=== PATIENT | male | born 1955 | race Caucasian/White ===

== ENCOUNTER 2017-05-26 06:38 | Observation (INO) ==
[2017-05-26] MEDS ORDERED: Vancomycin 1,500 MG in D5% in Water 250 ML IVPB ONE (07:04)
[2017-05-26] MEDS ORDERED: CeFAZolin Pre 2,000 MG/100 ML 2,000 MG/100 ML BAG IVPB ONE (07:04)
[2017-05-26] MEDS ORDERED: Ringers Solution, Lactated 1,000 ML IVC SCH (07:15)
[2017-05-26] MEDS: Albuterol 2.5 MG/3 ML NEBULIZER IH ONE ×2 (07:16→14:37)
--- NOTE | 2017-05-26 07:34 | History & Physical Report ---
Date of Encounter: 05/26/17 Time of Encounter: 07:30 24 Hour HP Update - Instructions Instructions: If the History and Physical is less than 30 days old and was completed prior to A.M. admission and or procedure and has NOT been updated on calendar day of procedure please complete this update prior to performing procedure. - Update Patient reports changes in Medical Condition: No Changes in examination, assessment, or condition: No Changes in Medication: No Preop tests/diagnostics Reviewed: Yes Surgery Remains Indicated: Yes Consent for Planned Operative Procedure(s) Verified: Yes - Pre-Operative Checklist Preoperative Checklist Indicated: Yes Prophylactic Antibiotic Ordered: Yes (vancomycin due to mrsa risk) Home Medications Include Beta Dereje: No Beta Dereje Taken Today (Day of Surgery): No Beta Dereje Taken Yesterday (Day Prior to Surgery): No Is VTE Prophylaxis Indicated?: Yes
[2017-05-26] MEDS ORDERED: *HR* Midazolam HCl 2 MG/2 ML VIAL ONE (08:14)
[2017-05-26] MEDS ORDERED: *HR* Propofol 200 MG/20 ML VIAL IVP ONE (08:14)
[2017-05-26] MEDS ORDERED: *HR* FentaNYL (PF) 100 MCG/2 ML VIAL ONE (08:14)
[2017-05-26] MEDS ORDERED: *HR* Phenylephrine 10 MG/ML VIAL ONE (08:15)
[2017-05-26] MEDS ORDERED: Heparin 1,000 UNITS/500 mL NS 500 ML ONE (08:17)
[2017-05-26] MEDS ORDERED: *HR* Remifentanil 1 MG VIAL IVP ONE ×2 (08:20)
[2017-05-26] MEDS ORDERED: Lidocaine -MPF 2% 2 ML VIAL ONE (08:26)
--- NOTE | 2017-05-26 08:32 | Anesthesia Evaluation PreOp ---
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: CVA (multiple CVA; residual LUE and LLE weakness), Other (R ICA stent) Other Medical History: Renal (stage IV ckd) Anesthesia History: No Prior Anesthetic Complications Alcohol Use: none Drug use: none Medications and Allergies Clopidogrel [Plavix] 75 mg PO DAILY 07/28/15 [History] Lisinopril 20 mg PO DAILY 01/03/16 [History] Oxycodone HCl/Acetaminophen [Percocet 10-325 mg Tablet] 1 tab PO Q8H PRN [History] Albuterol Sulfate [Albuterol Inhaler] 2 puff IH Q4HR PRN 07/13/16 [History] Aspirin [Lo-Dose Aspirin EC] 81 mg PO DAILY 02/07/17 [History] Lovastatin [Lovastatin] 80 mg PO HS 02/07/17 [History] amLODIPine [Norvasc] 5 mg PO DAILY 02/07/17 [History] 3 Allergy/AdvReac Type Severity Reaction Status Date / Time Beta-Blockers AdvReac See Verified 05/26/17 07:19 (Beta-Adrenergic Bloc Comments - Meds/Allergy Pre-op Review Medications Reviewed: Yes Allergies Reviewed: Yes Beta Blockers on Current Med List: No Anesthesia Results - Labs Laboratory Tests 05/24/17 05/24/17 05/24/17 11:53 11:53 11:53 WBC 7.9 Hgb 13.8 Hct 44.6 Plt Count 216 PT 11.1 INR 1.0 APTT 29.5 Sodium 138 Potassium 4.7 H Chloride 107 Carbon Dioxide 24 BUN 36 H Creatinine 2.24 H Est GFR ( Amer) 36 L Est GFR (Non-Af Amer) 30 L BUN/Creatinine Ratio 16 - Imaging EKG: report reviewed, image reviewed (SINUS RHYTHM NONSPECIFIC T-WAVE ABNORMALITY) Additional studies: 2016 TTE: Indications: Cerebrovascular Accident Impressions: Normal LV systolic function, LVEF 60%. Atypical septal motion is noted. Mild concentric left ventricular hypertrophy. Mild left ventricular diastolic dysfunction. Normal right ventricular structure and function. Mildly dilated right atrium. No evidence of intracardiac shunting with agitated saline contrast (fair quality study). No significant valvular dysfunction. Unable to estimate RVSP due to lack of TR jet. Borderline dilated aortic root and proximal ascending aorta, measuring 4.0 cm in diameter. 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
[2017-05-26] MEDS ORDERED: Heparin 1,000 UNITS/500 mL NS 1,000 ML ONE (08:47)
[2017-05-26] MEDS ORDERED: Bupivacaine-MPF 0.25% 10 ML VIAL ONE (08:47)
[2017-05-26] MEDS ORDERED: Protamine Sulfate 50 MG/5 ML VIAL IVP ONE (08:47)
[2017-05-26] MEDS ORDERED: EPHEDrine 50 MG/ML VIAL ONE (10:21)
[2017-05-26] MEDS ORDERED: Ondansetron 4 MG/2 ML VIAL ONE (10:53)
[2017-05-26] MEDS ORDERED: Dexamethasone 4 MG/ML VIAL ONE (10:53)
[2017-05-26] MEDS ORDERED: *HR* Promethazine 25 MG/ML VIAL IVP PRN (11:02)
--- NOTE | 2017-05-26 11:41 | Anesthesia Procedures ---
Date of Encounter: 05/26/17 Time of Encounter: 08:45 Procedures: Anesthesia - Arterial Line Time out performed: Yes Sedation: Versed (mg): 2 Supplemental Oxygen via Nasal Cannula (L/min): 3 Local Anesthetic: Lidocaine 1% Amount of Anesthetic used (mls): 0.2 Size (Gauge): 20 Length (inches): 1 3/4 Technique Used: sterile prep, guide wire technique Post-Procedure: line taped into place, dry sterile dressing placed Patient tolerated procedure: well, no complications Complications: none Site: Radial L Vitals: see nurses notes
[2017-05-26] MEDS ORDERED: NiCARdipine 2.5 MG/10 ML Syringe IVPB ONE (12:37)
[2017-05-26] MEDS ORDERED: *HR* HYDROmorphone 2 MG/ML SYRINGE ONE (12:42)
[2017-05-26] MEDS: *HR* HYDROmorphone (PF) 1 MG/ML SYRINGE IVP PRN ×4 (13:39→14:11)
[2017-05-26] MEDS ORDERED: Albuterol 2.5 MG/3 ML NEBULIZER IH ONE (13:45)
[2017-05-26] MEDS ORDERED: Albuterol 2.5 MG/3 ML NEBULIZER ONE (13:46)
--- NOTE | 2017-05-26 14:05 | Operative Note ---
Date of procedure: 05/26/17 Pre-op diagnosis: 80-99% Left internal carotid artery stenosis Post-op diagnosis: same Procedure: 1. Left carotid endarterectomy with hemashield patch angioplasty. Complications: None Anesthesia: MOSHEA Surgeon: John Sharma Estimated blood loss (cc): 100 Specimen: Left carotid plaque Condition: stable Disposition: PACU Procedure in Detail: Indications: The patient is a 61 year old male with a history of hypertension, hyperlipidemia, coronary artery disease and tobacco abuse who was found to have an 80-99% left internal carotid artery stenosis. A left carotid endarterectomy was recommended. Procedure: The patient was identified in the preoperative area. The risks, benefits, and alternatives of the procedure were discussed and all questions were answered. The patient was then taken to the operating room and placed in supine position on the operating table. After induction of general endotracheal anesthesia, the patient was cleaned and draped in normal sterile fashion. A longitudinal incision was made anterior to the left sternocleidomastoid muscle. Hemostasis was obtained via electrocautery. Through a process of blunt , sharp, and electrocautery dissection, the platysma was traversed. The jugular vein was identified. The facial vein was clamped, divided, tied off with a 2-0 silk suture ligature. The jugular vein was retracted, exposing the carotid bifurcation. Patient received 2000 units of heparin intravenously at this time. Proximal dissection of the common and external carotid arteries were performed circumferentially. Dissection of the internal carotid was performed circumferentially. Vessels loops were passed around the internal and external carotid and an umbilical tape was passed from the common carotid artery. The patient received additional 3000 units of heparin intravenously. Additional heparin was given throughout the case to maintain adequate anticoagulation. After waiting adequate time for it to circulate, the vessels were occluded and a longitudinal arteriotomy was made into the common carotid artery extending into the internal carotid beyond the plaque. Vigorous pulsatile retrograde flow was noted from the internal carotid artery upon release of the loop. This revealed significant retrograde perfusion. Therefore, a shunt was not placed. A dental Alkol was used to perform a standard endarterectomy. Proximal and distal endpoints were inspected. No elevated flaps were noted. Additional heparin was given throughout the procedure to maintain adequate anticoagulation. A Hemashield patch was cut to fit the defect and sutured in place with running 6 -0 Prolene. Prior to completing the closure, each vessel was flushed and then reoccluded. Heparinized saline was infused into the lumen. The patch was completed. Flow was restored in the external carotid artery, followed the common carotid artery, lastly the internal carotid artery was opened. A low resistance arterialized signal was present within the internal carotid artery beyond the patch. Thrombin and Gelfoam were used to aid in hemostasis. Meticulous hemostasis was obtained throughout the wound with electrocautery. Platelet rich and platelet poor plasma were infused into the wounds. The sternocleidomastoid was reapproximated with interrupted 3-0 Vicryl. Platelet rich and platelet poor plasma were infused into the wound. A TLS drain was brought through a separate stab incision and sutured in place with 0 silk suture. The platysma was reapproximated with running 3-0 Vicryl. Local anesthetic was infused in the skin. A 3-0 Monocryl was used to reapproximate the skin. Sterile dressing was applied. The patient was extubated, taken to the recovery room in stable condition.
--- NOTE | 2017-05-26 14:27 | Anesthesia Evaluation Post Op ---
Date of Encounter: 05/26/17 Time of Encounter: 14:25 - Vital Signs Vital Signs: Vital Signs/O2 Sat, Most Current Temp Pulse Resp BP Pulse Ox 98.6 F 77 16 127/70 97 05/26/17 13:56 05/26/17 14:06 05/26/17 14:06 05/26/17 14:06 05/26/17 14:06 - Lungs Lungs: Clear Ascult./Percussion - Airway Airway: Non-obstructed - Cardiovascular Regular Rate - Mental Status Mental Status: Alert & Oriented, Answers Appropriately - Pain Pain Scale: 4 - Nausea Vomiting Nausea Vomiting: Not Present - Hydration Hydration: Ice chips, Garrison catheter - Discharge PostOp Status: Transfer Patient to floor
[2017-05-26] MEDS ORDERED: *HR* Morphine 2 MG/ML SYRINGE IVP PRN (14:33)
[2017-05-26] MEDS ORDERED: Naloxone 0.4 MG/ML INJ IVP PRN (14:33)
[2017-05-26] MEDS ORDERED: Acetaminophen 325 MG TABLET PO PRN (14:33)
[2017-05-26] MEDS ORDERED: Ondansetron 4 MG/2 ML VIAL IVP PRN (14:33)
[2017-05-26] MEDS: 0.9 % Sodium Chloride 1,000 ML IVC SCH (14:37)
[2017-05-26] MEDS: ceFAZolin 2,000 MG in D5% in Water 100 ML IVPB SCH ×2 (15:13→23:43)
[2017-05-26] MEDS: *HR* OxyCODONE Immed Rel 5 MG TABLET PO PRN ×2 (15:13→21:03)
[2017-05-26] MEDS: Nicotine 21 MG PATCH.TD24 TD SCH (15:48)
[2017-05-26] MEDS: *HR* HYDROcodone/Acet 5/325 mg TABLET PO PRN (17:03)
[2017-05-27] MEDS: *HR* HYDROcodone/Acet 5/325 mg TABLET PO PRN (01:34)
[2017-05-27] MEDS: 0.9 % Sodium Chloride 1,000 ML IVC SCH (04:55)
[2017-05-27] MEDS: *HR* OxyCODONE Immed Rel 5 MG TABLET PO PRN (05:15)
[2017-05-27] MEDS: *HR* Heparin 5,000 UNIT/ML VIAL SQ SCH ×2 (05:16→05:18)
[2017-05-27] MEDS ORDERED: *HR* Heparin 5,000 UNIT/ML VIAL SQ SCH (06:00)
--- NOTE | 2017-05-27 07:07 | Discharge Summary ---
Date of Encounter: 05/27/17 Time of Encounter: 07:25 - Discharge Diagnosis (1) Carotid stenosis, bilateral Priority: Primary Status: Chronic Comments: The patient is postoperative day #1 after a left carotid endarterectomy. His wound is healing. He has no hematoma. He has no focal neurologic deficits. He will be discharged today. (2) Essential hypertension Priority: Secondary Status: Chronic Comments: He was counseled regarding atherosclerotic risk factor reduction. (3) Coronary artery disease Priority: Secondary Status: Chronic Qualifiers: Coronary Disease-Associated Artery/Lesion type: [place] artery [place] vs. transplanted heart: [place] heart Associated angina: without angina Qualified Code(s): I25.10 - Atherosclerotic heart disease of [place] coronary artery without angina pectoris (4) COPD (chronic obstructive pulmonary disease) Priority: Secondary Status: Chronic Qualifiers: COPD type: emphysema Emphysema type: panlobular Qualified Code(s): J43.1 - Panlobular emphysema (5) Mixed hyperlipidemia Priority: Secondary Status: Chronic (6) Tobacco abuse Priority: Secondary Status: Chronic Comments: He was counseled regarding smoking cessation. (7) CKD (chronic kidney disease) stage 3, GFR 30-59 ml/min Priority: Secondary Status: Chronic - Discharge Medications Prescriptions: OxyCODONE/APAP 5/325 [Percocet 5/325 MG] 1 each PO Q6HR PRN #20 tablet PRN Reason: postoperative pain Home Medications: Clopidogrel [Plavix] 75 mg PO DAILY 07/28/15 [History] Lisinopril 20 mg PO DAILY 01/03/16 [History] Albuterol Sulfate [Albuterol Inhaler] 2 puff IH Q4HR PRN 07/13/16 [History] Aspirin [Lo-Dose Aspirin EC] 81 mg PO DAILY 02/07/17 [History] Lovastatin 80 mg PO HS 02/07/17 [History] amLODIPine [Norvasc] 5 mg PO DAILY 02/07/17 [History] OxyCODONE/APAP 5/325 [Percocet 5/325 MG] 1 each PO Q6HR PRN #20 tablet 05/27/17 [Rx] Allergies/Adverse Reactions: 3 Allergy/AdvReac Type Severity Reaction Status Date / Time Beta-Blockers AdvReac See Verified 05/26/17 07:19 (Beta-Adrenergic Bloc Comments Date of admission: 05/26/17 14:29 Primary care physician: Arturo Crabtree MD Procedure(s) Performed: Left carotid endarterectomy Discharging clinician: John Sharma Anticipated date of discharge: 05/27/17 - Patient Status Disposition: Home, Self-Care Condition: Good Functional capacity at discharge: independent ambulation Overall status at discharge: patient is back to baseline - Discharge Instructions Follow Up With: Arturo Crabtree MD [Primary Care Provider] - 06/01/17 9:15 am () John Sharma MD [Partnered Physician] - 07/05/17 1:00 pm Additional Instructions: May remove bandage and shower 05/28/17. Wash wound gently and pat to dry. Apply dry gauze to wound as needed. No driving for [address] Sharma at [phone] with questions or concerns. - Diet and Activity Activity: increase activity as tolerated Diet: advance to your usual diet - Hospital Course Hospital course: Mr. Hartley is a 61 year old male admitted on . He underwent a left carotid endarterectomy and tolerated the procedure well. He was discharged on postoperative day #1 without complications. Time spent discussing smoking cessation with patient: 3 to 10 minutes - Time Spent with Patient Total time spent providing and/or coordinating discharge services: Exam Vital Signs, Last 4 Hours Temp Pulse Resp BP Pulse Ox 05/27/17 03:55 98.3 F 70 18 126/70 91 05/27/17 03:32 71 General: Present: Conversant, No Apparent Distress HEENT: Present: Trachea midline, Pupils equal Neck: Present: Other (incision clean, dry and intact without erythema or drainage, no hematoma) Cardiac: Present: Reg Rate and Rhythm Lungs: Present: Normal Breath Sounds Neuro: Present: Alert and responsive, No focal deficits noted, Motor nerves grossly intact, Sensory nerves grossly intact Abdomen: Present: Soft Vascular: Present: Normal capillary refill. Absent: Cyanosis, Edema - VTE Documentation of Mechanical Device: Intermittent pneumatic compression device
[2017-05-27 07:48] VITALS: BP 102/67
[2017-05-27] MEDS ORDERED: amLODIPine 5 MG TABLET PO SCH (09:00)
[2017-05-27] MEDS ORDERED: Aspirin Enteric Coated 81 MG Tablet PO SCH (09:00)
[2017-05-27] MEDS: Nicotine 21 MG PATCH.TD24 TD SCH (09:31)
== END 2017-05-27 09:56 | disposition home or self-care (01) | DRG 37 ==
LOC: SAMDAY 06:38 → 2NNU 14:29 → INTOOBSV 14:29
PROVIDERS: ADMIT Surgery; ATTEND Surgery

== ENCOUNTER 2017-10-20 08:45 | Inpatient (IN) ==
[~2017-10-20 08:45] MED LIST: *HR* OxyCODONE Immed Rel 5 MG TABLET PO PRN; Acetaminophen 325 MG TABLET PO PRN; Naloxone 0.4 MG/ML INJ IVP PRN
--- NOTE | 2017-10-20 09:00 | Internal Med History&Physical ---
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 Current visit: Yes Status: Suspected Bladder mass with liver and abdominal lymph node mets per CT scan Urology and oncology eval (3) UTI (urinary tract infection) Current visit: Yes Status: Suspected suspected Leukocytosis possibly due to this Start patient on Zosyn Send urine and blood culture Patient is not septic Qualifiers: Urinary tract infection type: site unspecified Hematuria presence: with hematuria Qualified Code(s): N39.0 - Urinary tract infection, site not specified; R31.9 - Hematuria, unspecified; R31.9 - Hematuria, unspecified (4) CKD (chronic kidney disease) stage 3, GFR 30-59 ml/min Current visit: Yes Status: Chronic Cr baseline is between 1.7 to 2, at baseline at this time (5) COPD (chronic obstructive pulmonary disease) Current visit: Yes Status: Chronic not in exacerbation at this time, ashish prn Qualifiers: COPD type: emphysema Emphysema type: panlobular Qualified Code(s): J43.1 - Panlobular emphysema (6) Carotid stenosis, bilateral Current visit: Yes Status: Chronic s/p CEA Continue ASA and Plavix (7) Coronary artery disease Current visit: Yes Status: Chronic no chest pain, continue home meds Qualifiers: Coronary Disease-Associated Artery/Lesion type: [place] artery [place] vs. transplanted heart: [place] heart Associated angina: without angina Qualified Code(s): I25.10 - Atherosclerotic heart disease of [place] coronary artery without angina pectoris (8) Essential hypertension Current visit: Yes Status: Chronic continue home meds (9) Mixed hyperlipidemia Current visit: Yes Status: Chronic continue home meds (10) Tobacco abuse Current visit: Yes Status: Chronic enocuraged cessation (11) DVT prophylaxis Current visit: Yes Status: Acute SQ heparin Internal Medicine - H&P: HPI Chief complaint: Difficulty urinating Admitted From: Home Plans for Post Hospital Care: Home History of present illness: Mr. Hartley is a 62 year old male with coronary artery disease, carotid stenosis status post carotid endarterectomy, tobacco abuse since childhood, hypertension and hyperlipidemia. The patient presents to [facility] as a referral from [facility]. The patient presents to [facility] as a referral from a do not [facility]. His problem dates back to 2 months ago when he developed dysuria, difficulty passing urine, and incontinence. He went to his primary care physician who treated him for urinary tract infection and referred him to urologist. He had an abdominal CAT scan done yesterday which was ordered by the urologist and is reviewed a bladder mass with severe R hydronephrosis and perinephric stranding of the right kidney, as well as multiple metastasis to the liver and abdominal and retroperitoneal lymph nodes. The patient denies fever or chills, the patient denies flank pain. He endorses suprapubic pain which has started for 2 months since his symptoms started. He denies any diarrhea or change in bowel habits. He denies any neurological symptoms. The patient has a history of tobacco abuse since the age of 6. He is otherwise clinically stable. He is on ASA and Plavix following a CEA done 05/2017 He denies hematuria We will have consulted urology and oncology for evaluation. Past Med Surg Social Fam HX - Past Medical History Medical history: COPD, coronary artery disease, CVA, hyperlipidemia, hypertension, other Psychiatric history: PTSD - Past Surgical History Surgical History: angioplasty/stent, other - Social History Smoking Status: Current every day smoker Smokeless Tobacco Status: No Alcohol use: none Drug use: none Internal Medicine - H&P: Meds Clopidogrel [Plavix] 75 mg PO DAILY 07/28/15 [History] Albuterol Sulfate [Albuterol Inhaler] 2 puff IH Q4HR PRN 07/13/16 [History] Aspirin [Lo-Dose Aspirin EC] 81 mg PO DAILY 02/07/17 [History] Lovastatin 80 mg PO HS 02/07/17 [History] amLODIPine [Norvasc] 5 mg PO DAILY 02/07/17 [History] Oxybutynin [Ditropan] 10 mg PO DAILY 10/19/17 [History] Budesonide [Pulmicort Flexhaler 180mcg] 1 puff IH BID 10/20/17 [History] Lisinopril-HCTZ 10-12.5 [Prinzide 10-12.5] 1 tab PO DAILY 10/20/17 [History] Nitroglycerin [Nitrostat] 0.4 mg SL Q5M PRN 10/20/17 [History] Oxycodone HCl/Acetaminophen [Percocet 10-325 mg Tablet] 1 tab PO TID PRN [History] 3 Allergy/AdvReac Type Severity Reaction Status Date / Time Beta-Blockers AdvReac See Verified 05/26/17 07:19 (Beta-Adrenergic Bloc Comments All Systems PM: A 10-system review of systems was performed and is negative for pertinent findings except as documented above in the HPI. - Constitutional Constitutional: no chills, no fever(s), no night sweats - EENT Eyes: no change in vision, no discharge, no pain, no photophobia Ears: no ear discharge, no ear pain, no tinnitus Nose, mouth and throat: no dysphagia, no nasal discharge, no neck pain, no sore throat - Cardiovascular Cardiovascular ROS IM: no chest pain, no diaphoresis, no dyspnea, no lightheadedness, no palpitations, no syncope - Respiratory Respiratory: no cough, no dyspnea, no wheezing, no excessive phlegm production - Gastrointestinal Gastrointestinal: no abdominal pain, no diarrhea, no hematemesis, no hematochezia, no melena, no nausea, no vomiting - Genitourinary Genitourinary ROS male: difficulty urinating, dysuria, flank pain, urinary incontinence, no hematuria - Musculoskeletal Musculoskeletal ROS IM: no numbness, no tingling - Integumentary Integumentary IM: no rash, no unusual bruising - Neurological Neurological ROS: no confusion, no convulsions, no focal weakness, no numbness, no tingling, no tremor(s) - Hematologic/Lymphatic Hematologic/Lymphatic: no easy bruising - Head Head exam: Present: atraumatic, normocephalic - Eye Eye exam: Present: PERRL, conjuntiva pink, sclera anicteric Pupils: Present: PERRL - Neck Neck exam general surgery: Present: supple, trachea midline. Absent: lymphadenopathy - Respiratory Respiratory exam: Present: CTAB. Absent: accessory muscle use, rales, rhonchi, wheezes - Cardiovascular Cardiovascular exam: Present: RRR, +S1, +S2. Absent: diastolic murmur, gallop, rubs, systolic murmur - GI/Abdominal GI/Abdominal exam: Present: normal bowel sounds, soft, tenderness (suprapubic tenderness), no peritoneal signs. Absent: distended - Extremities Exam Extremities exam: Present: warm, radial pulses palpable and symmetrical. Absent : calf tenderness, cyanotic, pedal edema - Back Exam Back exam: Absent: CVA tenderness (L), CVA tenderness (R) - Neurological Exam Neurological exam: Present: alert, CN II-XII intact, oriented X3, no focal deficits. Absent: pronater drift, facial droop, speech deficit - Skin Skin exam: Present: dry, intact
[2017-10-20] MEDS: 0.9 % Sodium Chloride 1,000 ML IVC SCH ×2 (09:44→20:22)
[2017-10-20] MEDS: Aspirin Enteric Coated 81 MG Tablet PO SCH ×2 (09:44→10:00)
[2017-10-20] MEDS: Lisinopril 20 MG TABLET PO SCH ×2 (09:44→10:01)
[2017-10-20] MEDS: amLODIPine 5 MG TABLET PO SCH ×2 (09:44→10:00)
[2017-10-20] MEDS: *HR* HYDROcodone/Acet 5/325 mg TABLET PO PRN ×2 (09:45→14:00)
--- NOTE | 2017-10-20 11:41 | Oncology Inp Consult Note ---
<Jordy Melgar - Last Filed: 10/20/17 19:36> Date of Encounter: 10/20/17 - Data of Consult Requesting Physician: Wilbert Pan Primary Care Provider: Arturo Crabtree MD - Consult Narrative History of present illness: Mr. Hartley is a 62 year old male Medications and Allergies Clopidogrel [Plavix] 75 mg PO DAILY 07/28/15 [History] Albuterol Sulfate [Albuterol Inhaler] 2 puff IH Q4HR PRN 07/13/16 [History] Aspirin [Lo-Dose Aspirin EC] 81 mg PO DAILY 02/07/17 [History] Lovastatin 80 mg PO HS 02/07/17 [History] amLODIPine [Norvasc] 5 mg PO DAILY 02/07/17 [History] Oxybutynin [Ditropan] 10 mg PO DAILY 10/19/17 [History] Budesonide [Pulmicort Flexhaler 180mcg] 1 puff IH BID 10/20/17 [History] Lisinopril-HCTZ 10-12.5 [Prinzide 10-12.5] 1 tab PO DAILY 10/20/17 [History] Nitroglycerin [Nitrostat] 0.4 mg SL Q5M PRN 10/20/17 [History] Oxycodone HCl/Acetaminophen [Percocet 10-325 mg Tablet] 1 tab PO TID PRN [History] 3 Allergy/AdvReac Type Severity Reaction Status Date / Time Beta-Blockers AdvReac See Verified 05/26/17 07:19 (Beta-Adrenergic Bloc Comments Oncology - Exam - Constitutional Vitals: Temp Pulse Resp BP Pulse Ox 98.4 F 102 18 109/69 96 10/20/17 14:48 10/20/17 14:48 10/20/17 14:48 10/20/17 14:48 10/20/17 14:48 Consult Discharge Plan - Plan Referrals: Arturo Crabtree MD [Primary Care Provider] - - Attending Attestation I have seen and examined this patient and agree with Mitchell's assessment. I met with Mr. Hartley, his sister and [id number] today. I reviewed his history and imaging at length. This gentleman appears to have a metastatic carcinoma of the bladder and OS. He has extensive retroperitoneal lymphadenopathy as well as liver metastasis on a noncontrasted CT scan. We discussed potential options for treatment. These include chemotherapy with [place] and gemcitabine combinations as well as avoiding chemotherapy and using PDL1 inhibition as a potential option as well. This approach were require further imaging as well as pathologic confirmation of cancer. He does not want to pursue this. Patient is in significant discomfort in the low pelvis and has obstructive uropathy. As such, I do think a minimum of palliative radiation should be at least considered to aid with his pain. Again , pathologic comfort take confirmation of malignancy would be required for radiation. Urine cytology has been obtained and is pending. We also discussed the role of hospice care which is his preference at current. He states "just give me some pain medicine and let me go home". His pain is not adequately controlled and he is frustrated and upset by this. His family and I discussed these options at length. At my urging, he is willing to consider palliative radiotherapy. I will discuss this case with radiation oncology tomorrow morning. Palliative care is following along and aiding in pain management. Family was very grateful for our conversation further decisions to be made moving forward. <Gloria Medrano L - Last Filed: 10/21/17 08:25> Date of Encounter: 10/20/17 Time of Encounter: 11:37 Assessment and Plan (1) Mass of urinary bladder Status: Acute Assessment and plan: Dr. Melgar and I met with patient and patients family to discuss radiographic findings concerning for metastatic carcinoma of the bladder. History and events leading up to his admission were reviewed in detail and discussed in HPI. Earlier today, patient has asked for hospice/palliative care consultation, I had encouraged him to at least hear his treatment options available with the oncology service so he can make an informed decision. Ultimately if he continues to wish for referral for hospice, we can certainly help with palliative arrangements. Potential options for treatment were discussed along with goals of care. The more aggressive approach option would include further staging scans, biopsy most likely of liver metastasis, palliative radiation to bladder following with chemotherapy or immunotherapy treatment options. He understands that all treatment would be palliative and not curative in nature. The less aggressive approach would include referral to hospice care with the goal to provide him comfort and not cancer treatment. We also highly encouraged the use of palliative radiation along with this option given his degree of discomfort which is likely from his bladder mass. He seems to prefer this approach. Palliative care already on board, appreciate continued recommendations. Will discuss role of palliative radiation with Dr. Tom tomorrow at tumor board to determine further steps. Urine cytology pending. Malignant confirmation may be necessary prior to palliative radiation, pending further discussion. Please refer to Dr. Melgar's attestation for additional details. - Data of Consult Patient: new to practice Consult date: 10/20/17 Requesting Physician: Wilbert Pan Primary Care Provider: Arturo Crabtree MD - Consult Narrative Reason for consult: Bladder mass with evidence of liver and abdominal lymph node metastasis History of present illness: Mr. Hartley is a 62 year old male with past medical history significant for coronary artery disease, carotid stenosis status post carotid endarterectomy, tobacco abuse since the age of 6, hypertension and hyperlipidemia. Mr. Hartley presented to [facility] as referral from [facility]. Over the past 2 months she has developed dysuria, difficulty passing urine, suprapubic pain and incontinence. He is consulting his primary care physician and was being treated for UTI along with referral to urology. He had consultation with Dr. Ocampo and a non contrasted CT of the abdomen/pelvis was obtained, following this CT he was instructed to present to ER for further workup of his findings. CT of the abdomen and pelvis without contrast on 2017 hows an ill-defined soft tissue mass along the posterior bladder wall with resultant severe right hydroureteronephrosis along with right retroperitoneal and pelvic lymphadenopathy and ill-defined hypodense lesions within the liver suspicious for metastatic disease. He denies hematuria, fever/chills, flank pain, diarrhea, constipation or any change in bowel movements. He has an elevated WBC count and elevated serum creatinine 2.2, GFR 30. His INR is 1.6, likely due to malnutrition and recent weight loss. He reports anorexia and resultant 75 pound weight loss over the past 6 months. He has had 3 CVA's, most recent CVA about 10 months ago, he no long drives due to this and has some residual right sided weakness. He is on ASA and plavix. He lives at home with his friend Arturo who he is helping to house. He is not very active throughout the day and states he spends most of his day watching TV and smoking cigarettes. He has smoked cigarettes since the age of 6, states he currently smokes about 1-2 PPD, at most 3 PPD. His sister Fang and brother in law are very involved in his care. He has no personal history of otehr cancer. His father from metastatic prostate cancer at age 75, his other with breast cancer in her 60's. Past Med Surg Social Fam HX - Past Medical History Medical history: COPD, coronary artery disease, CVA, hyperlipidemia, hypertension, other Psychiatric history: PTSD - Past Surgical History Surgical History: angioplasty/stent, other - Social History Smoking Status: Current every day smoker Smokeless Tobacco Status: No Alcohol use: none Drug use: none Constitutional: Present: anorexia, fatigue, frequent falls, weight loss. Absent : chills, fever(s) Eyes: Present: blind spots Additional comments: right eye vision loss secondary to CVA Cardiovascular: Absent: chest pain, irregular heart rhythm, palpitations Respiratory: Present: cough, wheezing Gastrointestinal: Present: abdominal pain. Absent: hematemesis, hematochezia, melena, nausea, vomiting Genitourinary: as per HPI Musculoskeletal: Absent: numbness, tingling Integumentary: Absent: wounds Neurological: Present: frequent falls, memory loss. Absent: numbness, tingling Additional comments: chronic right sided weakness. Hematologic/Lymphatic: Present: as per HPI Oncology - Exam - Constitutional Vitals: Temp Pulse Resp BP Pulse Ox 98.5 F 78 18 104/66 93 10/20/17 10:43 10/20/17 10:43 10/20/17 10:43 10/20/17 10:43 10/20/17 10:43 General appearance: no acute distress, no febrile - Head Head exam: Present: atraumatic - Respiratory Respiratory exam: Present: wheezes. Absent: respiratory distress - Cardiovascular Cardiovascular exam: Present: RRR, +S1, +S2 - GI/Abdominal GI/Abdominal exam: Present: normal bowel sounds, soft, tenderness (tenderness lower mid abd/bladder region) - Extremities Exam Extremities exam: Present: normal inspection. Absent: calf tenderness - Neurological Exam Neurological exam: Present: alert, oriented X3, strengths equal and symetr throughout - Psychiatric Psychiatric exam: Present: anxious - Skin Skin exam: Present: normal color, warm
[2017-10-20] MEDS ORDERED: Hyoscyamine SL 0.125 MG TAB.SUBL SL PRN (11:44)
--- NOTE | 2017-10-20 11:47 | Urology - Consult Note ---
Date of Encounter: 10/20/17 Time of Encounter: 11:45 - Assessment and Plan (1) Hydronephrosis due to obstructive malignant bladder cancer Current Visit: Yes Status: Acute Assessment and plan: I discussed with the patient about options regarding his hydronephrosis of his right kidney. I believe that cystoscopy with stenting be quite difficult secondary to large obstructing mass and stents traditionally fail with external compression from malignancy. Recommend interventional radiology to place a right nephrostomy tube if patient agrees. I do not believe that relieving the obstruction is going to help the patient's serum creatinine but could help improve his elevated WBC count. Concern for possible infection and hydronephrotic right kidney. (2) CKD (chronic kidney disease) stage 3, GFR 30-59 ml/min Current Visit: Yes Status: Chronic Assessment and plan: Patient's serum creatinine has been stable at this time. Unsure if relieving obstruction and right kidney would help of this. (3) Mass of urinary bladder Current Visit: No Status: Acute Assessment and plan: Patient's CT scan is highly consistent with metastatic bladder cancer. We will send urine cytology to clarify this. At this point the patient is not having gross hematuria and I worry with being on aspirin and Plavix as well as having a elevated INR that any cystoscopic biopsy could make bleeding quite difficult to control. Oncology is also on board as well as palliative care as the patient is seriously considering hospice care as opposed to full aggressive care. (4) Bladder pain Current Visit: Yes Status: Acute Assessment and plan: We will plan on adding BNO suppositories as well as Levsin to see if this helps with the patient's bladder discomfort. I believe this is related to the aggressive nature of his cancer. Urology CN:HPI Consult date: 10/20/17 Reason for consult Urology: Other (metastatic cancer) Requesting physician: Gabe Levine History of present illness: Jonathan is a 62-year-old male who underwent a CT scan ordered by me earlier this week which revealed likely metastatic bladder cancer. Patient was admitted to outside facility and transferred to our facility today. He is found to have chronic renal insufficiency. Patient's serum creatinine has been stable close to 2. Patient was found to have a markedly elevated white cell count of 25,000. Patient has felt off for quite some time. Patient's biggest complaint is lower abdominal/bladder discomfort. He describes this pain as a 10 out of 10 sharp in nature with no obvious radiation. No nausea or vomiting. No fevers. Patient states that he has had some blood in his urine off and on but it is rare. His biggest complaint regarding his urination is urinary frequency. Past Med Surg Social Fam HX - Past Medical History Medical history: COPD, coronary artery disease, CVA, hyperlipidemia, hypertension, other Psychiatric history: PTSD - Past Surgical History Surgical History: angioplasty/stent, other - Social History Smoking Status: Current every day smoker Smokeless Tobacco Status: No Alcohol use: none Drug use: none Medications and Allergies Clopidogrel [Plavix] 75 mg PO DAILY 07/28/15 [History] Albuterol Sulfate [Albuterol Inhaler] 2 puff IH Q4HR PRN 07/13/16 [History] Aspirin [Lo-Dose Aspirin EC] 81 mg PO DAILY 02/07/17 [History] Lovastatin 80 mg PO HS 02/07/17 [History] amLODIPine [Norvasc] 5 mg PO DAILY 02/07/17 [History] Oxybutynin [Ditropan] 10 mg PO DAILY 10/19/17 [History] Budesonide [Pulmicort Flexhaler 180mcg] 1 puff IH BID 10/20/17 [History] Lisinopril-HCTZ 10-12.5 [Prinzide 10-12.5] 1 tab PO DAILY 10/20/17 [History] Nitroglycerin [Nitrostat] 0.4 mg SL Q5M PRN 10/20/17 [History] Oxycodone HCl/Acetaminophen [Percocet 10-325 mg Tablet] 1 tab PO TID PRN [History] 3 Allergy/AdvReac Type Severity Reaction Status Date / Time Beta-Blockers AdvReac See Verified 05/26/17 07:19 (Beta-Adrenergic Bloc Comments Review of Systems - Constitutional weakness, no fever(s) - EENT Nose, mouth and throat: no dizziness - Cardiovascular no chest pain - Respiratory no cough - Gastrointestinal abdominal pain - Genitourinary as per HPI - Musculoskeletal back pain - Integumentary no erythema - Neurological no confusion - Psychiatric no anxiety - Hematologic/Lymphatic no lymphadenopathy - Allergic/Immunologic no throat swelling Exam Initial Vital Signs Temp Pulse Resp BP Pulse Ox 97.7 F 77 15 105/65 96 10/20/17 09:06 10/20/17 09:06 10/20/17 09:06 10/20/17 09:06 10/20/17 09:06 - General physical appearance Present: well developed, moderate pain - Eyes Absent: icteric - Neck Present: no lymphadenopathy - Respiratory Present: normal respiratory effort - Cardiovascular Cardiovascular exam IM: RRR - Abdomen Abdomen: Present: soft, suprapubic tenderness - Integumentary Present: no abnormal pigmentation - Neurologic Present: normal coordination Urology Results - Labs Abnormal lab results POC Glucose 112 (58-89) H 10/20/17 10:47 All other labs normal. - Imaging CT scan - abdomen: image reviewed CT scan - pelvis: image reviewed Consult Discharge Plan - Plan Referrals: Arturo Crabtree MD [Primary Care Provider] -
--- NOTE | 2017-10-20 13:59 | Palliative - Consult Note ---
<Dana Ruby - Last Filed: 10/20/17 15:00> Date of Encounter: 10/20/17 Time of Encounter: 13:57 - Assessment and Plan (1) Goals of care, counseling/discussion Current Visit: Yes Status: Acute Assessment and plan: Current Code Status DNR-CCA/DNI. The patient is very adamant that he start hospice today. I had a long discussion with the patient on the goals of hospice care, the need for a definitive diagnosis of bladder cancer prior to making a decision not to proceed with any sort of care. He states that he does not want to be a burden on his family financially or physically. He states that he would like to just go home to "smokes cigarettes and watch TV." He also notes that he would like to speak with someone about donating his body to science. After a long discussion the patient continued to ask how long it would take to enroll him in hospice and when the social work faculty member would be by to speak with him. He also asked several times whether there was any sort of shot that could be given to him that would end his life sooner. The patient kept repeating "I want to just get this over with." It would be very reasonable for the patient to be enrolled in hospice care and I feel that that is a good option if he chooses to not continue with aggressive management. He will need to have a definitive diagnosis of cancer, but can be enrolled at home after discharge. We did have a discussion of his CODE STATUS which had been full code at the time of my interview. He wishes to be made DNR CCA\\DNI. I have reviewed the appropriate change in his chart to reflect this. In regard to his pain, it is not well controlled at this point. He has current medication orders for oxycodone 10mg, hydrocodone 5-325 and has just received a belladonna rectal suppository. We will increase the oxycodone dose to 15mg and increase the frequency to Q3hr. He denies nausea. (2) Mass of urinary bladder Current Visit: No Status: Acute Assessment and plan: Mass found on abdominal CT that urology feels is likely bladder cancer. Urine cytology for diagnosis is pending. Urology feels that at this time cystoscopy with stenting would be difficult secondary to a large obstructing mass and stents often fail. They have recommended interventional radiology place a right nephrostomy tube if the patient is agreeable. (3) Hydronephrosis due to obstruction of ureter Current Visit: No Status: Acute Assessment and plan: There is concern for possible infection and urology has recommended IR to place a right nephrostomy tube. (4) Tobacco abuse Current Visit: Yes Status: Chronic Assessment and plan: Continue nicotine patch Palliative-CN HPI - Data of Consult Patient: new to practice Consult date: 10/20/17 Requesting Physician: Wilbert Pan Primary Care Provider: Arturo Crabtree MD Family Provider: Arturo Crabtree MD - Consult Narrative Palliative Care/Comfort Measures: Hospice care Reason for consult: Pt requests info about hospice, bladder mass likely metastatic cancer History of present illness: Mr. Hartley is a 62 year old male with a PMH of with CAD, carotid stenosis status post carotid endarterectomy, tobacco abuse since childhood, HTN and HLD. The patient had been experiencing dysuria, difficulty urinating, suprapubic pain and incontinence for the last 2 months. He had been treated for UTI and referred to urology. Dr. Ocampo had ordered an abdominal CT which was done yesterday. The CT scan revealed an ill-defined soft tissue mass along the posterior bladder wall with resultant severe right hydroureteronephrosis, right retroperitoneal and pelvic lymphadenopathy and ill-defined hypodense lesions within the liver that are suspicious for metastatic disease. Dr. Ocampo notes that the abdominal CT is highly consistent with metastatic bladder cancer, urine cytology has been sent for definitive diagnosis. Options for treatment were discussed with the patient and the patient has requested a palliative care consult to discuss his options for hospice. The patient states that he would like to proceed with hospice as he does not want to be a financial or physical burden on his family. He states that he would like to just go home and "smoke cigarettes and watch TV." He feels that he does not want aggressive treatment as he feels that it will not be of any benefit to him and that there is no cure. During the discussion he also asked if there was a shot that he could be given to "let him go faster." The patient also has questions about whether or not his body can be donated to science and would like to speak with the social work faculty member as soon as possible about this. Overall the patient is very adamant that he is immediately enrolled in hospice. He states that his pain is not very well controlled and that the Roxicodone he received earlier did not help him much. He he had received a belladonna suppository minutes before I arrived to interview him, which had not taken effect yet. He states that his pain is an 8-9 out of 10. He denies any nausea , shortness of breath. CC: Wilbert Pan Past Med Surg Social Fam HX - Past Medical History Medical history: COPD, coronary artery disease, CVA, hyperlipidemia, hypertension, other Psychiatric history: PTSD - Past Surgical History Surgical History: angioplasty/stent, other - Social History Smoking Status: Current every day smoker Smokeless Tobacco Status: No Alcohol use: none Drug use: none Medications and Allergies Clopidogrel [Plavix] 75 mg PO DAILY 07/28/15 [History] Albuterol Sulfate [Albuterol Inhaler] 2 puff IH Q4HR PRN 07/13/16 [History] Aspirin [Lo-Dose Aspirin EC] 81 mg PO DAILY 02/07/17 [History] Lovastatin 80 mg PO HS 02/07/17 [History] amLODIPine [Norvasc] 5 mg PO DAILY 02/07/17 [History] Oxybutynin [Ditropan] 10 mg PO DAILY 10/19/17 [History] Budesonide [Pulmicort Flexhaler 180mcg] 1 puff IH BID 10/20/17 [History] Lisinopril-HCTZ 10-12.5 [Prinzide 10-12.5] 1 tab PO DAILY 10/20/17 [History] Nitroglycerin [Nitrostat] 0.4 mg SL Q5M PRN 10/20/17 [History] Oxycodone HCl/Acetaminophen [Percocet 10-325 mg Tablet] 1 tab PO TID PRN [History] 3 Allergy/AdvReac Type Severity Reaction Status Date / Time Beta-Blockers AdvReac See Verified 05/26/17 07:19 (Beta-Adrenergic Bloc Comments All systems: reviewed and no additional remarkable complaints except as stated Palliative Care-Exam - Constitutional Vitals: Temp Pulse Resp BP Pulse Ox 98.5 F 78 18 104/66 93 10/20/17 10:43 10/20/17 10:43 10/20/17 10:43 10/20/17 10:43 10/20/17 10:43 General appearance: Present: average body habitus, disheveled, no acute distress - Head Head Exam: Present: atraumatic, normal inspection, normocephalic - Eye Eye exam: Present: EOMI, normal appearance, PERRL - ENT ENT exam: Present: mucous membranes moist - Neck Neck exam: Present: full ROM - Respiratory Respiratory exam: Present: CTAB. Absent: accessory muscle use, respiratory distress, tachypnea - Cardiovascular Cardiovascular exam: Present: RRR - GI/Abdominal Exam GI/Abdominal exam: Present: normal bowel sounds, soft, tenderness (suprapubic) - Extremities Exam Extremities exam: Present: normal capillary refill, normal inspection. Absent: pedal edema, tenderness - Neurological Exam Neurological exam: Present: alert, no focal deficits - Expanded Neurological Exam Patient oriented to: Present: person, place, time Speech: Present: fluid speech Coma Scale Eye Opening: Spontaneous Coma Scale Motor Response: Obeys Commands Coma Scale Verbal Response: Oriented Coma Scale Total: 15 - Psychiatric Psychiatric exam: Present: anxious, depressed - Skin Skin exam: Present: dry, erythema (buttocks, midline, non-blanchable), intact, warm Consult Discharge Plan - Plan Referrals: Arturo Crabtree MD [Primary Care Provider] - Palliative Quality Palliative Quality: Screen for Code Status: Yes, Screen for Goals of Care: Yes, Screen for Pain: Yes, If Pain Regimen Started, Initiate Bowel Regimen: Yes, Screen for Nausea/Vomitting: Yes Code Status: DNR-CCA/DNI <Oscar Chirinos Itz - Last Filed: 10/20/17 15:20> Date of Encounter: 10/20/17 Palliative-CN HPI - Data of Consult Requesting Physician: Wilbert Pan Primary Care Provider: Arturo Crabtree MD - Consult Narrative History of present illness: Mr. Hartley is a 62 year old male CC: Wilbert Pan Palliative Care-Exam - Constitutional Vitals: Temp Pulse Resp BP Pulse Ox 98.4 F 102 18 109/69 96 10/20/17 14:48 10/20/17 14:48 10/20/17 14:48 10/20/17 14:48 10/20/17 14:48 - Attending Attestation I examined this patient and my medical decision-making was reviewed with the Resident Physician. I agree with the documented findings, disposition and treatment plan as described except to the extent set forth below. Palliative Quality Code Status: 10/20/17 08:45 Resuscitation Status: Active [RES] Routine Comment: Resuscitation Status: Full Code Resuscitation Status: Active [RES] Routine Comment: Resuscitation Status: [id number]
[2017-10-20] MEDS: *HR* Belladonna Alkaloids/Opium 60 MG RECTAL SUPPOSITORY RC SCH ×3 (14:01→17:28)
[2017-10-20] MEDS: Nicotine 21 MG PATCH.TD24 TD SCH (14:04)
[2017-10-20] MEDS ORDERED: *HR* OxyCODONE Immed Rel 5 MG TABLET PO PRN (15:06)
[2017-10-20] MEDS: *HR* Heparin 5,000 UNIT/ML VIAL SQ SCH (17:28)
[2017-10-20] MEDS: Piperacillin/Tazobactam 3.375 GM in 0.9 % Sodium Chloride Mini Bag 100 ML IVPB SCH (17:29)
[2017-10-20] MEDS ORDERED: Ondansetron ODT 4 MG TAB.RAPDIS SL PRN (22:02)
[2017-10-21] MEDS: *HR* Belladonna Alkaloids/Opium 60 MG RECTAL SUPPOSITORY RC SCH ×4 (02:21→18:13)
[2017-10-21] MEDS: Piperacillin/Tazobactam 3.375 GM in 0.9 % Sodium Chloride Mini Bag 100 ML IVPB SCH ×3 (02:22→18:06)
[2017-10-21 05:16] LABS: Hemoglobin 9.6 g/dL (12.9-16.9)
[2017-10-21 05:17] LABS: Hematocrit 30.8 % (37.5-50.1); Mean Corpuscular HGB Conc 31.2 g/dL (31.6-35.5); Mean Corpuscular Hemoglobin 27.4 pg (28.0-33.3); Mean Corpuscular Volume 87.7 fL (83.0-100.0); Mean Platelet Volume 10.1 fL (9.4-12.4); Platelet Count 319 K/mcL (140-400); Red Blood Count 3.51 M/mcL (4.19-5.50); Red Cell Distribution Width 13.5 % (11.5-14.5)
[2017-10-21 05:33] LABS: Calcium 8.8 mg/dL (8.6-10.3); Potassium 4.9 mEq/L (3.5-5.1)
[2017-10-21 05:41] LABS: Platelet Estimate Normal (Normal)
[2017-10-21 05:44] LABS: Basophils # 1.1 K/mcL (0.0-0.2); Lymphocytes # 1.6 K/mcL (0.6-4.6); Monocytes # 1.6 K/mcL (0.0-1.3); Neutrophils # 22.4 K/mcL (1.6-8.9); Reactive Lymphocytes Present (Not Present)
[2017-10-21] MEDS: *HR* Heparin 5,000 UNIT/ML VIAL SQ SCH ×2 (05:48→18:12)
[2017-10-21] MEDS: *HR* HYDROcodone/Acet 5/325 mg TABLET PO PRN ×2 (05:48→14:10)
[2017-10-21] MEDS: Aspirin Enteric Coated 81 MG Tablet PO SCH (08:13)
--- NOTE | 2017-10-21 08:14 | Urology Progress Note ---
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 Patient not interested in nephrostomy tube at this time. Patient states he just wants to go home. (2) CKD (chronic kidney disease) stage 3, GFR 30-59 ml/min Current Visit: Yes Status: Chronic (3) Mass of urinary bladder Current Visit: No Status: Acute Assessment and plan: Urine cytology is currently pending. Expect results either today or Tuesday or Tuesday. If cytology negative then we will need tissue diagnosis which can be obtained cystoscopically if the patient agrees to the procedure. (4) Bladder pain Current Visit: Yes Status: Acute Progress Note Narrative: Patient seen. patient states that he is ready to go home and smoke cigarettes. Patient states that the B and O suppositories have been helping his discomfort in his bladder/pelvis. Cytology at this point is pending. Objective Initial Vital Signs Temp Pulse Resp BP Pulse Ox 97.7 F 77 15 105/65 96 10/20/17 09:06 10/20/17 09:06 10/20/17 09:06 10/20/17 09:06 10/20/17 09:06 - General physical appearance Present: well developed - Respiratory Present: clear to auscultation - Abdomen Present: soft, tender - Labs 10/21/17 04:54 10/21/17 04:54 Diabetes panel 10/21/17 Range/Units 04:54 Sodium 130 L (136-145) mEq/L Potassium 4.9 (3.5-5.1) mEq/L Chloride 99 (98-107) mEq/L Carbon Dioxide 24 (23-29) mEq/L BUN 37 H (8-23) mg/dL Creatinine 1.90 H (0.70-1.30) mg/dL Glucose 116 H (70-105) mg/dL Calcium 8.8 (8.6-10.3) mg/dL Calcium panel 10/21/17 Range/Units 04:54 Calcium 8.8 (8.6-10.3) mg/dL Pituitary panel 10/21/17 Range/Units 04:54 Sodium 130 L (136-145) mEq/L Potassium 4.9 (3.5-5.1) mEq/L Chloride 99 (98-107) mEq/L Carbon Dioxide 24 (23-29) mEq/L BUN 37 H (8-23) mg/dL Creatinine 1.90 H (0.70-1.30) mg/dL Glucose 116 H (70-105) mg/dL Calcium 8.8 (8.6-10.3) mg/dL Adrenal panel 10/21/17 Range/Units 04:54 Sodium 130 L (136-145) mEq/L Potassium 4.9 (3.5-5.1) mEq/L Chloride 99 (98-107) mEq/L Carbon Dioxide 24 (23-29) mEq/L BUN 37 H (8-23) mg/dL Creatinine 1.90 H (0.70-1.30) mg/dL Glucose 116 H (70-105) mg/dL Calcium 8.8 (8.6-10.3) mg/dL - VTE Documentation of Mechanical Device: Intermittent pneumatic compression device Consult Discharge Plan - Plan Referrals: Arturo Crabtree MD [Primary Care Provider] -
[2017-10-21] MEDS: *HR* OxyCODONE Immed Rel 5 MG TABLET PO PRN ×2 (08:22→14:21)
[2017-10-21] MEDS: Nicotine 21 MG PATCH.TD24 TD SCH (08:23)
[2017-10-21] MEDS: amLODIPine 5 MG TABLET PO SCH (08:32)
[2017-10-21] MEDS: Lisinopril 20 MG TABLET PO SCH (08:32)
--- NOTE | 2017-10-21 09:40 | Oncology Inp Progress Note ---
<Gloria Medrano L - Last Filed: 10/21/17 17:28> Date of Encounter: 10/21/17 Time of Encounter: 09:40 (1) Mass of urinary bladder Current Visit: No Status: Acute Assessment and plan: While again, reviewing options for treatment with Mr. Hartley today, he continues to prefer the palliative approach and declines chemotherapy treatments. He would like to pursue palliative radiation. If necessary he is now agreeable to liver biopsy if urine cytology is negative. Currently awaiting urine cytology results, if found to be negative he is now amendable to liver biopsy. I will make patient NPO after midnight for Tuesday with plan to order liver biopsy if urine cytology negative. Will also need to monitor INR. Plavix on hold. He had a consultation and SIM planning with Dr. Tom this morning to begin planning for palliative radiotherapy. Will need confirmation of malignancy either by urine cytology or biopsy prior to radiotherapy treatment initiation. He will have further arranged appointments with radiation at his consult today. May consider also making future appointment with Dr. Melgar in a few weeks following his radiation treatments if patient is agreeable, if patients pain is controlled and he wishes to entertain the idea of chemotherapy/immunotherapy, this option will be available to him if his health would allow. Patient is aware of this option. Palliative care already on board, appreciate continued recommendations and assistance. He reports urinating small amounts at a time and the constant sensation that he cannot empty his bladder. Reviewed urology's note and he is declining nephrostomy at this time. His kidney function to appears to have slightly improved this morning, although WBC count is increasing. He is on Zosyn. His pain is better controlled than yesterday, working with the palliative team. I will add oxybutynin which may help his bladder spasms. May straight cath for urinary retention. Please refer to Dr. Melgar's attestation for additional details. Oncology: Subj Interval history: Mr. Hartley is resting comfortably in bed. No family at bedside at this time. He reports his pain is under better control, however still present. He is having difficulty urinating and emptying his bladder, he has the constant sensation of the need to urinate. He denies hematuria. - Constitutional Vitals: Vital Signs Temp Pulse Resp BP Pulse Ox 10/21/17 06:37 98.0 F 73 16 101/65 92 10/21/17 03:36 97.9 F 87 17 101/61 93 10/20/17 23:22 100.1 F H 95 17 119/74 93 10/20/17 19:39 99.1 F 91 17 110/72 93 10/20/17 14:48 98.4 F 102 18 109/69 96 10/20/17 10:43 98.5 F 78 18 104/66 93 Intake and Output 10/20/17 10/21/17 10/21/17 23:59 07:59 15:59 Intake Total 1250 / 1250 0 / 0 0 / 0 Output Total 100 / 100 0 / 0 Balance 1150 / 1150 0 / 0 0 / 0 Intake: IV Fluids 1000 / 1000 0.9 % Sodium Chloride 1,000 ML 1000 / 1000 @ 100 mls/hr IVC .Q10H JENNIFER Rx#: [id number] Oral 250 / 250 0 / 0 0 / 0 Output: Urine 100 / 100 0 / 0 Other: Meal Patient refused Dinner Tray NPO Percent of Meal Consumed 0% # Voids 1 # Urine Diapers 1 1 Weight 80.1 kg Blood Glucose* 118 Patient Weight 10/21/17 23:59 Weight 80.1 kg General appearance: cooperative, no acute distress, no febrile - Head Head exam: Present: atraumatic - Respiratory Respiratory exam: Present: wheezes. Absent: respiratory distress - Cardiovascular Cardiovascular exam: Present: RRR, +S1, +S2 - GI/Abdominal GI/Abdominal exam: Present: normal bowel sounds, soft, tenderness - Extremities Exam Extremities exam: Present: normal inspection. Absent: calf tenderness - Neurological Exam Neurological exam: Present: alert, oriented X3, strengths equal and symetr throughout Additional comments: chronic right sided weakness secondary to prior CVA - Psychiatric Psychiatric exam: Present: normal affect, normal mood - Skin Skin exam: Present: normal color, warm Oncology: Obj Data - Labs CBC & Chem 7: 10/21/17 04:54 10/21/17 04:54 Consult Discharge Plan - Plan Referrals: Arturo Crabtree MD [Primary Care Provider] - <Jordy Melgar - Last Filed: 10/22/17 20:17> Date of Encounter: 10/22/17 - Constitutional Vitals: Vital Signs Temp Pulse Resp BP Pulse Ox 10/22/17 20:05 99.0 F 93 17 157/83 94 10/22/17 15:45 98.1 F 78 16 122/73 91 10/22/17 11:41 97.7 F 81 16 135/80 93 10/22/17 07:36 98.0 F 82 16 127/70 95 10/22/17 00:00 97.8 F 80 16 96/68 95 Intake and Output 10/22/17 10/22/17 10/23/17 08:59 16:59 00:59 Intake Total 240 / 240 360 / 360 Output Total 150 / 150 0 / 0 Balance -150 / -150 240 / 240 360 / 360 Intake: Oral 240 / 240 360 / 360 Output: Urine 150 / 150 0 / 0 Other: Meal Lunch Dinner Percent of Meal Consumed 85% 75% Stool Consistency loose liquid Stool Color Brown # Voids 1 # Urine Diapers 5 # Bowel Movements 1 Oncology: Obj Data - Labs CBC & Chem 7: 10/22/17 04:24 10/22/17 04:24 Labs: Laboratory Results - last 24 hr 10/22/17 10/22/17 10/22/17 04:24 04:24 09:36 WBC 25.6 H RBC 3.33 L Hgb 9.1 L Hct 29.9 L MCV 89.8 MCH 27.3 L MCHC 30.4 L RDW 13.5 Plt Count 312 MPV 10.3 Seg Neutrophils % 66.0 Band Neutrophils % 4.0 Lymphocytes % 2.0 Monocytes % 12.0 Eosinophils % 14.0 Basophils % 2.0 Neutrophils # 17.9 H Lymphocytes # 0.5 L Monocytes # 3.1 H Eosinophils # 3.6 H Basophils # 0.5 H Platelet Estimate Normal PT 15.4 H INR 1.4 Sodium 132 L Potassium 4.9 Chloride 101 Carbon Dioxide 27 BUN 35 H Creatinine 1.85 H Est GFR ( Amer) 45 L Est GFR (Non-Af Amer) 37 L BUN/Creatinine Ratio 19 Glucose 116 H Calculated Osmolality 283 Calcium 8.8 - ABG Interpretation ABG results: PT/INR, D-dimer PT 15.4 Seconds (9.4-12.1) H 10/22/17 09:36 - Attending Attestation I examined this patient and my medical decision-making was reviewed with the Advanced Practice Nurse. I agree with the documented findings, disposition and treatment plan as described except to the extent set forth below. Mr. Hartley continues to have pelvic pain. It is better controlled. The majority of our conversation involves his pain medication. He is drowsy/sedated, and I think his pain management is at a reasonable place currently. He did meet with Dr. Tom at my recommendation. Will need tissue confirmation prior to initiation of radiation. We have again requested a urine sample with cytology. If negative, will need liver biopsy. Plan will be home with hospice upon completion of radiation; radiation can be administered as an outpatient.
--- NOTE | 2017-10-21 13:26 | Palliative Progress Note ---
Date of Encounter: 10/21/17 Time of Encounter: 13:20 - Assessment and plan (1) Bladder pain Current Visit: Yes Status: Acute Assessment and plan: Continue with B&O suppository PRN. His Oxycodone was decreased this am to 10 mg every 4 hours, as he states previous dose was making him too lethargic. Will continue as currently ordered and monitor. He has thus far only utilized x1 today. Had only utilized the increased dose of 15mg Oxy once yesterday, which states made him too lethargic. (2) Mass of urinary bladder Current Visit: No Status: Acute (3) Counseling regarding advanced care planning and goals of care Current Visit: Yes Status: Acute Assessment and plan: Patient has recently returned from cancer center. States after speaking with radiation oncologist, he is agreeable to biopsy and palliative radiation if warranted. States "if I go home in current condition, I might have to come right back". Will continue to follow - Time Spent With Patient Total time spent is greater than 50% in coordination of care (as documented) at patient's floor/unit and/or counseling patient: 25 - 35 minutes - Subjective Interval history: Patient just returned from Oncology. Assisted to bathroom. Having some discomfort at this time. Discussed pain regimen - states that he was oversedated and "too groggy feeling" - dose of oxycodone has been decreased today. He is amenable to biopsy and palliative radiation after speaking with oncology. - Constitutional Vitals: Abnormal lab results WBC 26.7 K/mcL (4.3-11.1) H 10/21/17 04:54 RBC 3.51 M/mcL (4.19-5.50) L 10/21/17 04:54 Hgb 9.6 g/dL (12.9-16.9) L 10/21/17 04:54 Hct 30.8 % (37.5-50.1) L 10/21/17 04:54 MCH 27.4 pg (28.0-33.3) L 10/21/17 04:54 MCHC 31.2 g/dL (31.6-35.5) L 10/21/17 04:54 Neutrophils # 22.4 K/mcL (1.6-8.9) H 10/21/17 04:54 Monocytes # 1.6 K/mcL (0.0-1.3) H 10/21/17 04:54 Basophils # 1.1 K/mcL (0.0-0.2) H 10/21/17 04:54 Reactive Lymphocytes Present (Not Present) A 10/21/17 04:54 Sodium 130 mEq/L (136-145) L 10/21/17 04:54 BUN 37 mg/dL (8-23) H 10/21/17 04:54 Creatinine 1.90 mg/dL (0.70-1.30) H 10/21/17 04:54 Est GFR ( Amer) 43 (> 60) L 10/21/17 04:54 Est GFR (Non-Af Amer) 36 (> 60) L 10/21/17 04:54 Glucose 116 mg/dL (70-105) H 10/21/17 04:54 POC Glucose 118 (58-89) H 10/21/17 05:06 General appearance: Present: no acute distress - Respiratory Respiratory exam: Present: decreased breath sounds, CTAB - Cardiovascular Cardiovascular exam: Present: +S1, +S2 - GI/Abdominal GI/Abdominal exam: Present: distended, normal bowel sounds, soft - Extremities Exam Extremities exam: Present: normal capillary refill, normal inspection - Neurological Exam Neurological exam: Present: alert, oriented X3, strengths equal and symetr throughout Additional comments: Gait unsteady - Skin Skin exam: Present: dry, pallor, warm Palliative Quality Palliative Quality: Screen for Code Status: Yes, Screen for Goals of Care: Yes, Screen for Pain: Yes, If Pain Regimen Started, Initiate Bowel Regimen: Yes, Screen for Nausea/Vomitting: Yes Code Status: 10/20/17 08:45 Resuscitation Status: Active [RES] Routine Comment: Resuscitation Status: Full Code Resuscitation Status: Active [RES] Routine Comment: Resuscitation Status: [id number] - Labs CBC & Chem 7: 10/21/17 04:54 10/21/17 04:54 Labs: Laboratory Results - last 24 hr 10/20/17 10/21/17 10/21/17 15:33 04:54 04:54 WBC 26.7 H RBC 3.51 L Hgb 9.6 L Hct 30.8 L MCV 87.7 MCH 27.4 L MCHC 31.2 L RDW 13.5 Plt Count 319 MPV 10.1 Seg Neutrophils % 80.0 Band Neutrophils % 4.0 Lymphocytes % 6.0 Monocytes % 6.0 Basophils % 4.0 Neutrophils # 22.4 H Lymphocytes # 1.6 Monocytes # 1.6 H Basophils # 1.1 H Reactive Lymphocytes Present A Platelet Estimate Normal Sodium 130 L Potassium 4.9 Chloride 99 Carbon Dioxide 24 BUN 37 H Creatinine 1.90 H Est GFR ( Amer) 43 L Est GFR (Non-Af Amer) 36 L BUN/Creatinine Ratio 19 Glucose 116 H POC Glucose Calculated Osmolality 280 Calcium 8.8 Prostate Specific Ag 2.90 10/21/17 05:06 WBC RBC Hgb Hct MCV MCH MCHC RDW Plt Count MPV Seg Neutrophils % Band Neutrophils % Lymphocytes % Monocytes % Basophils % Neutrophils # Lymphocytes # Monocytes # Basophils # Reactive Lymphocytes Platelet Estimate Sodium Potassium Chloride Carbon Dioxide BUN Creatinine Est GFR ( Amer) Est GFR (Non-Af Amer) BUN/Creatinine Ratio Glucose POC Glucose 118 H Calculated Osmolality Calcium Prostate Specific Ag Consult Discharge Plan - Plan Referrals: Arturo Crabtree MD [Primary Care Provider] -
--- NOTE | 2017-10-21 16:01 | Rad Onc Consult Note ---
Radiation Oncology HPI - Oncology history Comments: 62-year-old male presents with a clinical stage IV bladder cancer with pelvic pain and urinary symptoms as well as intermittent bleeding in the urine Date: 10/21/17 Primary Care Provider: Arturo Crabtree MD History of present illness: Mr. Hartley has pelvic pain and urinary problems from a locally advanced bladder cancer that appears to be metastatic to his liver. He is interested in pursuing palliative care. He has had collection of urine cytology that is pending, but no biopsy to date. He reports that his pain and problems are localized to his pelvis. He smokes and desires to continue to smoke. He does not want aggressive oncologic therapy and would like to be comfortable and pursue Hospice. He denies a history of cancer and of radiotherapy. Past Medical History: COPD, CVA, hyperlipidemia, hypertension, malignancy, myocardial infarction Surgical History: angioplasty/stent, Adenoidectomy, Tonsillectomy, other Surgical History: "neck scraped". 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 Family History -Oncology: heart disease, cancer Oncology - Medications Clopidogrel [Plavix] 75 mg PO DAILY 07/28/15 [History] Albuterol Sulfate [Albuterol Inhaler] 2 puff IH Q4HR PRN 07/13/16 [History] Aspirin [Lo-Dose Aspirin EC] 81 mg PO DAILY 02/07/17 [History] Lovastatin 80 mg PO HS 02/07/17 [History] amLODIPine [Norvasc] 5 mg PO DAILY 02/07/17 [History] Oxybutynin [Ditropan] 10 mg PO DAILY 10/19/17 [History] Budesonide [Pulmicort Flexhaler 180mcg] 1 puff IH BID 10/20/17 [History] Lisinopril-HCTZ 10-12.5 [Prinzide 10-12.5] 1 tab PO DAILY 10/20/17 [History] Nitroglycerin [Nitrostat] 0.4 mg SL Q5M PRN 10/20/17 [History] Oxycodone HCl/Acetaminophen [Percocet 10-325 mg Tablet] 1 tab PO TID PRN [History] 3 Allergy/AdvReac Type Severity Reaction Status Date / Time Beta-Blockers AdvReac See Verified 05/26/17 07:19 (Beta-Adrenergic Bloc Comments Review of Systems Provider Comments: A 12 point review of systems was performed. Pertinent positives and negatives are listed below and in the history of present illness. All other systems negative. General/Constitutional: Fatigue Urinary: Urinary Frequency, Painful Urination, Blood in Urine, Urine Control Difficulty Physical Exam - Vitals Vital Signs: Last Vital Signs Temp 98.1 F 10/21/17 14:04 Pulse 87 10/21/17 14:04 Resp 16 10/21/17 14:04 BP 100/63 10/21/17 14:04 Pulse Ox 95 10/21/17 14:04 Pain Scale: 8 ECO - Consciousness/Orientation Level Of Consciousness: Awake, Alert, Appropriate Patient Orientation: Name, Date of Physical Exam: General: Alert and oriented ill appearing. Mental Status: Affect appropriate for circumstances HEENT: Sclerae anicteric. No mucositis or thrush. No other oral lesions or erythema. Skin: No rashes or petechiae. Lymph nodes: No cervical, supraclavicular, axillary, or inguinal adenopathy. Lungs: Clear to auscultation and percussion bilaterally. Cardiovascular: Regular rate and rhythm. No gallops, murmurs, or rubs. Abdomen: Soft, nontender; no organomegaly or masses palpable. Extremities: No edema. No calf swelling or tenderness. No joint deformity. Neurologic: Alert, cranial nerves II-XII intact; no focal weakness or sensory abnormalities. Oncology- Results - Labs Labs: Short CBC 10/21/17 Range/Units 04:54 WBC 26.7 H (4.3-11.1) K/mcL Hgb 9.6 L (12.9-16.9) g/dL Hct 30.8 L (37.5-50.1) % Plt Count 319 (140-400) K/mcL Neutrophils # 22.4 H (1.6-8.9) K/mcL BMP 10/21/17 04:54 Sodium 130 L Potassium 4.9 Chloride 99 Carbon Dioxide 24 BUN 37 H Creatinine 1.90 H Glucose 116 H Calcium 8.8 - Diagnostic Studies CT scan images were personally reviewed and reviewed in multidisciplinary conference. - Assessment Assessment: Mr. Hartley is opting for palliative care. Metastatic bladder cancer can have a long natural history, and this was explained to him. He would like to pursue Hospice. He is interested in radiotherapy to the extent that it may help or delay additional symptoms in his pelvis. A course of 2000 cGy in 5 fractions to the pelvis is reasonable in this situation. Risks and benefits were discussed. This is consistent with a palliative care and Hospice philosophy. Positive biopsy or urine cytology will be necessary in order to pursue this palliative treatment. Patient is amenable to liver biopsy if necessary. Risks and benefits of palliative pelvic radiotherapy were discussed. Patient signed consent today. He will undergo CT simulation today. Thank you for allowing me to participate in the care of Mr. Hartley. 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
--- NOTE | 2017-10-21 16:07 | Rad Onc Dictation ---
Radiation Oncology Dictation Date of Service: 10/21/17 - Oncology History Comments: 62-year-old male presents with a clinical stage IV bladder cancer with pelvic pain and urinary symptoms as well as intermittent bleeding in the urine - Procedure Note Comments: CT Simulation and Treatment Planning Note Mr. Hartley was brought into the CT Simulation suite and placed in the supine position. A custom vac-lock device for leg positionwas created. For comfort, a knee sponge was used. 3D CT Simulation was required secondary to irregular shape of the target volume , close proximity to critical normal structures. Critical normal structures adjacent to the target volume include the following: rectum and femoral heads. [employer] TumorLOC software will be utilized to place an isocenter for treatment planning. This will be transferred to the lasers in the treatment room and will be used to rey the patient for daily positioning. A 4-field plan will be utilized to deliver 2000 cGy in 5 fractions to the pelvis. Daily imaging will be required to insure adequate treatment of the target volume and avoidance of critical normal structures with cone-beam CT secondary to the following: close margin between target volume and critical structure. We will align the daily imaging with simulation imaging daily with focus on the pelvis. This patient will require weekly monitoring in the form of on-treatment visits to assess for progression through treatment, ability to tolerate further treatment, and to assess for treatment-related side effects in order to manage them. Consent has been obtained, and the patient is amenable to treatment. The risks and benefits of radiotherapy have been explained, and the patient is agreeable to proceed. Thank you again for allowing us to participate in the care of this pleasant patient. Sincerely, Henry Tom MD [place] [address]
[2017-10-21] MEDS ORDERED: *HR* OxyCODONE/APAP 10/325 TABLET PO PRN (17:53)
[2017-10-21] MEDS: Pantoprazole 40 MG VIAL IVP SCH (20:57)
--- NOTE | 2017-10-21 20:57 | Internal Med Progress Note ---
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 Not interested in nephrostomy tubes. Spoke with oncology today. Currently awaiting urine cytology results, if found to be negative he is now amenable to liver biopsy. Will try to schedule biopsy for Tuesday if urine cytology negative. Plan to begin palliative radiotherapy. Oxybutynin started today. Continue levsin. Maintain adequate pain control; will switch to percocet per patient request due to nausea. (2) UTI (urinary tract infection) Current Visit: Yes Status: Suspected Assessment and plan: Continue zosyn. Follow up with urine culture. Recheck CBC in AM. 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 Plan as per above. (4) CKD (chronic kidney disease) stage 3, GFR 30-59 ml/min Current Visit: Yes Status: Chronic Assessment and plan: Cr baseline is between 1.7 to 2, at baseline at this time. Recheck BMP in AM. (5) Carotid stenosis, bilateral Current Visit: Yes Status: Chronic Assessment and plan: Continue ASA and Plavix. (6) Essential hypertension Current Visit: Yes Status: Chronic Assessment and plan: Continue home medications. (7) Coronary artery disease Current Visit: Yes Status: Chronic Assessment and plan: Continue home medications. Qualifiers: Coronary Disease-Associated Artery/Lesion type: [place] artery [place] vs. transplanted heart: [place] heart Associated angina: without angina Qualified Code(s): I25.10 - Atherosclerotic heart disease of [place] coronary artery without angina pectoris (8) COPD (chronic obstructive pulmonary disease) Current Visit: Yes Status: Chronic Assessment and plan: Continue duonebs PRN. Qualifiers: COPD type: emphysema Emphysema type: panlobular Qualified Code(s): J43.1 - Panlobular emphysema (9) Mixed hyperlipidemia Current Visit: Yes Status: Chronic Assessment and plan: Continue home medications. (10) Tobacco abuse Current Visit: Yes Status: Chronic Assessment and plan: Counselled. Continue nicotine transdermal. (11) DVT prophylaxis Current Visit: Yes Status: Acute Assessment and plan: Continue heparin SC. - Time Spent With Patient less than 15 minutes - Subjective Interval history: Patient had no acute events overnight. He states that roxicodone is making him sick; he wants to go back to his home percocet 10 mg Q8H PRN. He has no other complaints. - Constitutional Vitals: Temp Pulse Resp BP Pulse Ox 98.0 F 80 16 118/71 90 10/21/17 20:00 10/21/17 20:00 10/21/17 20:00 10/21/17 20:00 10/21/17 20:00 - Respiratory Respiratory exam: Present: CTAB. Absent: accessory muscle use, rales, rhonchi, wheezes Additional comments: Normal WOB - Cardiovascular Cardiovascular exam: Present: RRR, +S1, +S2. Absent: diastolic murmur, gallop, rubs, systolic murmur Additional comments: No BLE edema - GI/Abdominal GI/Abdominal exam: Present: normal bowel sounds, soft. Absent: distended, hepatomegaly, mass, splenomegaly, tenderness - Neurological Exam Neurological exam: Present: alert, oriented X3 Additional comments: Chronic right sided weakness secondary to prior CVA - Psychiatric Psychiatric exam: Present: normal affect, normal mood. Absent: anxious, depressed - Skin Skin exam: Present: dry, warm. Absent: cyanosis, rash Internal Medicine: Result - Labs CBC & Chem 7: 10/21/17 04:54 10/21/17 04:54 Labs: Short CBC 10/21/17 Range/Units 04:54 WBC 26.7 H (4.3-11.1) K/mcL Hgb 9.6 L (12.9-16.9) g/dL Hct 30.8 L (37.5-50.1) % Plt Count 319 (140-400) K/mcL Neutrophils # 22.4 H (1.6-8.9) K/mcL BMP 10/21/17 04:54 Sodium 130 L Potassium 4.9 Chloride 99 Carbon Dioxide 24 BUN 37 H Creatinine 1.90 H Glucose 116 H Calcium 8.8 - VTE Documentation of Mechanical Device: Intermittent pneumatic compression device Consult Discharge Plan - Plan Referrals: Arturo Crabtree MD [Primary Care Provider] -
[2017-10-22] MEDS: *HR* Belladonna Alkaloids/Opium 60 MG RECTAL SUPPOSITORY RC SCH ×5 (00:29→23:08)
[2017-10-22] MEDS: *HR* OxyCODONE/APAP 10/325 TABLET PO PRN ×4 (00:39→20:25)
[2017-10-22] MEDS ORDERED: Piperacillin/Tazobactam 3.375 GM in 0.9 % Sodium Chloride Mini Bag 100 ML IVPB SCH (02:00)
[2017-10-22 05:32] LABS: Calcium 8.8 mg/dL (8.6-10.3); Potassium 4.9 mEq/L (3.5-5.1); Red Cell Distribution Width 13.5 % (11.5-14.5)
[2017-10-22 05:33] LABS: Hematocrit 29.9 % (37.5-50.1); Hemoglobin 9.1 g/dL (12.9-16.9); Mean Corpuscular HGB Conc 30.4 g/dL (31.6-35.5); Mean Corpuscular Hemoglobin 27.3 pg (28.0-33.3); Mean Corpuscular Volume 89.8 fL (83.0-100.0); Mean Platelet Volume 10.3 fL (9.4-12.4); Platelet Count 312 K/mcL (140-400); Red Blood Count 3.33 M/mcL (4.19-5.50)
[2017-10-22 06:24] LABS: Basophils # 0.5 K/mcL (0.0-0.2); Eosinophils # 3.6 K/mcL (0.0-0.6); Lymphocytes # 0.5 K/mcL (0.6-4.6); Monocytes # 3.1 K/mcL (0.0-1.3); Neutrophils # 17.9 K/mcL (1.6-8.9); Platelet Estimate Normal (Normal)
[2017-10-22] MEDS: *HR* Heparin 5,000 UNIT/ML VIAL SQ SCH (06:39)
[2017-10-22] MEDS: Pantoprazole 40 MG VIAL IVP SCH (08:18)
[2017-10-22] MEDS: Nicotine 21 MG PATCH.TD24 TD SCH (08:19)
[2017-10-22] MEDS: Aspirin Enteric Coated 81 MG Tablet PO SCH (08:19)
[2017-10-22] MEDS: amLODIPine 5 MG TABLET PO SCH ×2 (08:19→08:33)
--- NOTE | 2017-10-22 08:20 | Palliative Progress Note ---
<Dana Ruby - Last Filed: 10/22/17 08:35> Date of Encounter: 10/22/17 Time of Encounter: 08:17 - Assessment and plan (1) Goals of care, counseling/discussion Current Visit: Yes Status: Acute Assessment and plan: Current Code Status DNR-CCA/DNI. Pt has met with oncology and is pursuing radiation treatment currently for comfort. He does not want to pursue aggressive treatment at this time. Urology will be performing cystoscopy tomorrow for biopsy and attempt at debulking the mass. The patient is agreeable to this for comfort and speeding up diagnosis. He still wishes to pursue hospice care. He states that his pain is currently well controlled. He is anxious about everything, and was going to call his family when I left. (2) Mass of urinary bladder Current Visit: No Status: Acute Assessment and plan: Mass found on abdominal CT that urology feels is likely bladder cancer. Urine cytology for diagnosis is pending. Urology feels that at this time cystoscopy with stenting would be difficult secondary to a large obstructing mass and stents often fail. They have recommended interventional radiology place a right nephrostomy tube, however the pt does not want to pursue this. He is pursuing radiation treatment. (3) Tobacco abuse Current Visit: Yes Status: Chronic Assessment and plan: Pt desires to continue smoking. Continue nicotine patch. - Time Spent With Patient Total time spent is greater than 50% in coordination of care (as documented) at patient's floor/unit and/or counseling patient: - Subjective Interval history: Pt seen and examined. He states that his pain is well controlled. He was speaking with urology and has decided to undergo cystoscopy tomorrow for biopsy and attempt at debulking the mass. He states that he is nervous about this. Otherwise he states that he still wishes to go home with hospice care when able. - Constitutional Vitals: Abnormal lab results WBC 25.6 K/mcL (4.3-11.1) H 10/22/17 04:24 RBC 3.33 M/mcL (4.19-5.50) L 10/22/17 04:24 Hgb 9.1 g/dL (12.9-16.9) L 10/22/17 04:24 Hct 29.9 % (37.5-50.1) L 10/22/17 04:24 MCH 27.3 pg (28.0-33.3) L 10/22/17 04:24 MCHC 30.4 g/dL (31.6-35.5) L 10/22/17 04:24 Neutrophils # 17.9 K/mcL (1.6-8.9) H 10/22/17 04:24 Lymphocytes # 0.5 K/mcL (0.6-4.6) L 10/22/17 04:24 Monocytes # 3.1 K/mcL (0.0-1.3) H 10/22/17 04:24 Eosinophils # 3.6 K/mcL (0.0-0.6) H 10/22/17 04:24 Basophils # 0.5 K/mcL (0.0-0.2) H 10/22/17 04:24 Reactive Lymphocytes Present (Not Present) A 10/21/17 04:54 Sodium 132 mEq/L (136-145) L 10/22/17 04:24 BUN 35 mg/dL (8-23) H 10/22/17 04:24 Creatinine 1.85 mg/dL (0.70-1.30) H 10/22/17 04:24 Est GFR ( Amer) 45 (> 60) L 10/22/17 04:24 Est GFR (Non-Af Amer) 37 (> 60) L 10/22/17 04:24 Glucose 116 mg/dL (70-105) H 10/22/17 04:24 POC Glucose 118 (58-89) H 10/21/17 05:06 General appearance: Present: average body habitus, no acute distress - Head Head exam: Present: atraumatic, normal inspection, normocephalic - Eye Eye exam: Present: EOMI, PERRL - ENT ENT exam: Present: mucous membranes moist - Respiratory Respiratory exam: Present: rales, rhonchi. Absent: respiratory distress - Cardiovascular Cardiovascular exam: Present: RRR - GI/Abdominal GI/Abdominal exam: Present: normal bowel sounds, soft. Absent: tenderness - Extremities Exam Extremities exam: Present: normal capillary refill. Absent: pedal edema, tenderness - Neurological Exam Neurological exam: Present: alert, oriented X3, no focal deficits. Absent: speech deficit - Psychiatric Psychiatric exam: Present: anxious, depressed - Skin Skin exam: Present: dry, intact, warm Palliative Quality Palliative Quality: Screen for Code Status: Yes, Screen for Goals of Care: Yes, Screen for Pain: Yes, If Pain Regimen Started, Initiate Bowel Regimen: Yes, Screen for Nausea/Vomitting: Yes Code Status: 10/20/17 08:45 Resuscitation Status: Active [RES] Routine Comment: Resuscitation Status: [id number] - Labs CBC & Chem 7: 10/22/17 04:24 10/22/17 04:24 Labs: Laboratory Results - last 24 hr 10/22/17 10/22/17 04:24 04:24 WBC 25.6 H RBC 3.33 L Hgb 9.1 L Hct 29.9 L MCV 89.8 MCH 27.3 L MCHC 30.4 L RDW 13.5 Plt Count 312 MPV 10.3 Seg Neutrophils % 66.0 Band Neutrophils % 4.0 Lymphocytes % 2.0 Monocytes % 12.0 Eosinophils % 14.0 Basophils % 2.0 Neutrophils # 17.9 H Lymphocytes # 0.5 L Monocytes # 3.1 H Eosinophils # 3.6 H Basophils # 0.5 H Platelet Estimate Normal Sodium 132 L Potassium 4.9 Chloride 101 Carbon Dioxide 27 BUN 35 H Creatinine 1.85 H Est GFR ( Amer) 45 L Est GFR (Non-Af Amer) 37 L BUN/Creatinine Ratio 19 Glucose 116 H Calculated Osmolality 283 Calcium 8.8 Consult Discharge Plan - Plan Referrals: Arturo Crabtree MD [Primary Care Provider] - <Oscar Chirinos L - Last Filed: 10/22/17 09:13> Date of Encounter: 10/22/17 - Time Spent With Patient Total time spent is greater than 50% in coordination of care (as documented) at patient's floor/unit and/or counseling patient: - Constitutional Vitals: Abnormal lab results WBC 25.6 K/mcL (4.3-11.1) H 10/22/17 04:24 RBC 3.33 M/mcL (4.19-5.50) L 10/22/17 04:24 Hgb 9.1 g/dL (12.9-16.9) L 10/22/17 04:24 Hct 29.9 % (37.5-50.1) L 10/22/17 04:24 MCH 27.3 pg (28.0-33.3) L 10/22/17 04:24 MCHC 30.4 g/dL (31.6-35.5) L 10/22/17 04:24 Neutrophils # 17.9 K/mcL (1.6-8.9) H 10/22/17 04:24 Lymphocytes # 0.5 K/mcL (0.6-4.6) L 10/22/17 04:24 Monocytes # 3.1 K/mcL (0.0-1.3) H 10/22/17 04:24 Eosinophils # 3.6 K/mcL (0.0-0.6) H 10/22/17 04:24 Basophils # 0.5 K/mcL (0.0-0.2) H 10/22/17 04:24 Reactive Lymphocytes Present (Not Present) A 10/21/17 04:54 Sodium 132 mEq/L (136-145) L 10/22/17 04:24 BUN 35 mg/dL (8-23) H 10/22/17 04:24 Creatinine 1.85 mg/dL (0.70-1.30) H 10/22/17 04:24 Est GFR ( Amer) 45 (> 60) L 10/22/17 04:24 Est GFR (Non-Af Amer) 37 (> 60) L 10/22/17 04:24 Glucose 116 mg/dL (70-105) H 10/22/17 04:24 POC Glucose 118 (58-89) H 10/21/17 05:06 - Attending Attestation I examined this patient and my medical decision-making was reviewed with the Resident Physician. I agree with the documented findings, disposition and treatment plan as described except to the extent set forth below. Palliative Quality Code Status: 10/20/17 08:45 Resuscitation Status: Active [RES] Routine Comment: Resuscitation Status: Full Code Resuscitation Status: Active [RES] Routine Comment: Resuscitation Status: [id number] - Labs CBC & Chem 7: 10/22/17 04:24 10/22/17 04:24 Labs: Laboratory Results - last 24 hr 10/22/17 10/22/17 04:24 04:24 WBC 25.6 H RBC 3.33 L Hgb 9.1 L Hct 29.9 L MCV 89.8 MCH 27.3 L MCHC 30.4 L RDW 13.5 Plt Count 312 MPV 10.3 Seg Neutrophils % 66.0 Band Neutrophils % 4.0 Lymphocytes % 2.0 Monocytes % 12.0 Eosinophils % 14.0 Basophils % 2.0 Neutrophils # 17.9 H Lymphocytes # 0.5 L Monocytes # 3.1 H Eosinophils # 3.6 H Basophils # 0.5 H Platelet Estimate Normal Sodium 132 L Potassium 4.9 Chloride 101 Carbon Dioxide 27 BUN 35 H Creatinine 1.85 H Est GFR ( Amer) 45 L Est GFR (Non-Af Amer) 37 L BUN/Creatinine Ratio 19 Glucose 116 H Calculated Osmolality 283 Calcium 8.8
--- NOTE | 2017-10-22 08:59 | Urology Progress Note ---
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 Patient still not interested and right nephrostomy tube. (2) CKD (chronic kidney disease) stage 3, GFR 30-59 ml/min Current Visit: Yes Status: Chronic Assessment and plan: Serum creatinine stable at this time. (3) Mass of urinary bladder Current Visit: No Status: Acute Assessment and plan: Patient has had some episodes of urinary retention. Patient now developing hematuria. Cytology was delayed being sent. At this time my plan is to take the patient to the operating room tomorrow for transurethral section of bladder tumor. This will hopefully help control some of his hematuria. This will also provide tissue for diagnosis. Possible ability to place right ureteral stent depending on the degree of obstruction from bladder tumor. (4) Bladder pain Current Visit: Yes Status: Acute Progress Note Narrative: Patient evaluated this morning. Patient had significant bladder discomfort last night and a straight catheterization was performed. Patient states a large amount of urine was returned which was bloody. There is no documentation of the amount of urine that was returned in the straight catheter. Objective Initial Vital Signs Temp Pulse Resp BP Pulse Ox 97.7 F 77 15 105/65 96 10/20/17 09:06 10/20/17 09:06 10/20/17 09:06 10/20/17 09:06 10/20/17 09:06 - General physical appearance Present: well developed, moderate distress, moderate pain - Respiratory Present: normal expansion, normal respiratory effort - Abdomen Present: soft, tender (Over superpubic area) - Labs 10/22/17 04:24 10/22/17 04:24 Diabetes panel 10/22/17 Range/Units 04:24 Sodium 132 L (136-145) mEq/L Potassium 4.9 (3.5-5.1) mEq/L Chloride 101 (98-107) mEq/L Carbon Dioxide 27 (23-29) mEq/L BUN 35 H (8-23) mg/dL Creatinine 1.85 H (0.70-1.30) mg/dL Glucose 116 H (70-105) mg/dL Calcium 8.8 (8.6-10.3) mg/dL Calcium panel 10/22/17 Range/Units 04:24 Calcium 8.8 (8.6-10.3) mg/dL Pituitary panel 10/22/17 Range/Units 04:24 Sodium 132 L (136-145) mEq/L Potassium 4.9 (3.5-5.1) mEq/L Chloride 101 (98-107) mEq/L Carbon Dioxide 27 (23-29) mEq/L BUN 35 H (8-23) mg/dL Creatinine 1.85 H (0.70-1.30) mg/dL Glucose 116 H (70-105) mg/dL Calcium 8.8 (8.6-10.3) mg/dL Adrenal panel 10/22/17 Range/Units 04:24 Sodium 132 L (136-145) mEq/L Potassium 4.9 (3.5-5.1) mEq/L Chloride 101 (98-107) mEq/L Carbon Dioxide 27 (23-29) mEq/L BUN 35 H (8-23) mg/dL Creatinine 1.85 H (0.70-1.30) mg/dL Glucose 116 H (70-105) mg/dL Calcium 8.8 (8.6-10.3) mg/dL - VTE Documentation of Mechanical Device: Intermittent pneumatic compression device Consult Discharge Plan - Plan Referrals: Arturo Crabtree MD [Primary Care Provider] -
[2017-10-22 10:53] LABS: INR 1.4; Prothrombin Time 15.4 Seconds (9.4-12.1)
[2017-10-22] MEDS ORDERED: *HR* FentaNYL (PF) 100 MCG/2 ML VIAL IVP ONE (17:28)
--- NOTE | 2017-10-22 18:41 | Internal Med Progress Note ---
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 Still not interested in nephrostomy tubes. Urology planning to take the patient to the operating room tomorrow for transurethral section of bladder tumor. This may help with hematuria and provide tissue for cancer diagnosis. Plan to begin palliative radiotherapy after this. Continue Oxybutynin and levsin. Maintain adequate pain control; will continue percocet and do a trial of one-time fentanyl 25 mcg to see if this works. If it works, we can schedule fentanyl for breakthrough pain. (2) UTI (urinary tract infection) Current Visit: Yes Status: Suspected Assessment and plan: Urine culture no growth final. Still has leukocytosis. Continue IV zosyn for now. Will consider discontinuation of zosyn tomorrow after transurethral section of bladder tumor. Recheck CBC in AM. 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 Plan as per above. (4) CKD (chronic kidney disease) stage 3, GFR 30-59 ml/min Current Visit: Yes Status: Chronic Assessment and plan: Cr baseline is between 1.7 to 2, at baseline at this time. Recheck BMP in AM. (5) Carotid stenosis, bilateral Current Visit: Yes Status: Chronic Assessment and plan: Continue ASA and Plavix. (6) Essential hypertension Current Visit: Yes Status: Chronic Assessment and plan: Continue home medications. (7) Coronary artery disease Current Visit: Yes Status: Chronic Assessment and plan: Continue home medications. Qualifiers: Coronary Disease-Associated Artery/Lesion type: [place] artery [place] vs. transplanted heart: [place] heart Associated angina: without angina Qualified Code(s): I25.10 - Atherosclerotic heart disease of [place] coronary artery without angina pectoris (8) COPD (chronic obstructive pulmonary disease) Current Visit: Yes Status: Chronic Assessment and plan: Continue duonebs PRN. Qualifiers: COPD type: emphysema Emphysema type: panlobular Qualified Code(s): J43.1 - Panlobular emphysema (9) Mixed hyperlipidemia Current Visit: Yes Status: Chronic Assessment and plan: Continue home medications. (10) Tobacco abuse Current Visit: Yes Status: Chronic Assessment and plan: Counselled. Continue nicotine transdermal. (11) DVT prophylaxis Current Visit: Yes Status: Acute Assessment and plan: Continue heparin SC. - Time Spent With Patient 25 - 35 minutes - Subjective Interval history: Patient had no acute events overnight. He states that percocet started yesterday is not enough for pain. He has no other complaints. - Constitutional Vitals: Temp Pulse Resp BP Pulse Ox 98.1 F 78 16 122/73 91 10/22/17 15:45 10/22/17 15:45 10/22/17 15:45 10/22/17 15:45 10/22/17 15:45 General appearance: Present: A&O X 3, no acute distress, answers questions appropriately - Respiratory Respiratory exam: Present: CTAB. Absent: accessory muscle use, rales, rhonchi, wheezes Additional comments: Normal WOB - Cardiovascular Cardiovascular exam: Present: RRR, +S1, +S2. Absent: diastolic murmur, gallop, rubs, systolic murmur Additional comments: No BLE edema - GI/Abdominal GI/Abdominal exam: Present: normal bowel sounds, soft. Absent: distended, hepatomegaly, mass, splenomegaly, tenderness - Neurological Exam Neurological exam: Present: alert, oriented X3 Additional comments: Chronic right-sided weakness secondary to prior CVA - Psychiatric Psychiatric exam: Present: normal affect, normal mood. Absent: anxious, depressed - Skin Skin exam: Present: dry, warm. Absent: cyanosis, rash Internal Medicine: Result - Labs CBC & Chem 7: 10/22/17 04:24 10/22/17 04:24 Labs: Short CBC 10/22/17 Range/Units 04:24 WBC 25.6 H (4.3-11.1) K/mcL Hgb 9.1 L (12.9-16.9) g/dL Hct 29.9 L (37.5-50.1) % Plt Count 312 (140-400) K/mcL Neutrophils # 17.9 H (1.6-8.9) K/mcL BMP 10/22/17 04:24 Sodium 132 L Potassium 4.9 Chloride 101 Carbon Dioxide 27 BUN 35 H Creatinine 1.85 H Glucose 116 H Calcium 8.8 - ABG Interpretation ABG results: PT/INR, D-dimer PT 15.4 Seconds (9.4-12.1) H 10/22/17 09:36 - VTE Documentation of Mechanical Device: Intermittent pneumatic compression device Consult Discharge Plan - Plan Referrals: Arturo Crabtree MD [Primary Care Provider] -
[2017-10-22] MEDS: Piperacillin/Tazobactam 3.375 GM in 0.9 % Sodium Chloride Mini Bag 100 ML IVPB SCH (19:25)
[2017-10-23] MEDS ORDERED: *HR* FentaNYL (PF) 100 MCG/2 ML VIAL IVP ONE (00:25)
[2017-10-23] MEDS: *HR* OxyCODONE/APAP 10/325 TABLET PO PRN ×4 (03:47→22:49)
[2017-10-23] MEDS: *HR* Belladonna Alkaloids/Opium 60 MG RECTAL SUPPOSITORY RC SCH ×3 (06:23→17:25)
--- NOTE | 2017-10-23 06:56 | Urology Progress Note ---
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 (4) Bladder pain Current Visit: Yes Status: Acute Progress Note Narrative: Patient evaluated this morning. Patient only had one question of whether it would hurt during surgery. Patient now with fever of 100 degrees overnight. Still with difficulty controlling urine. Objective Initial Vital Signs Temp Pulse Resp BP Pulse Ox 97.7 F 77 15 105/65 96 10/20/17 09:06 10/20/17 09:06 10/20/17 09:06 10/20/17 09:06 10/20/17 09:06 - General physical appearance Present: well developed, no distress - Abdomen Present: soft. Absent: masses - Genitourinary Present: normal penis with no external lesions - Integumentary Present: no rash, no abnormal pigmentation - Labs 10/22/17 04:24 10/22/17 04:24 - VTE Documentation of Mechanical Device: Intermittent pneumatic compression device Consult Discharge Plan - Plan Referrals: Arturo Crabtree MD [Primary Care Provider] -
--- NOTE | 2017-10-23 07:05 | Anesthesia Evaluation PreOp ---
Date of Encounter: 10/23/17 Time of Encounter: 07:03 - Past History Planned Operation: TURBT Cardiac History: CA (02/03), HTN, Hyperlipidemia, Cardiac Stent (SHAWN x 1 2014) Pulmonary History: Smoker, Pack/yr (1 ppd x 50 years), COPD ORCHESTRATOR History: CVA (Multiple (3) with residual Let UE & LE residual weaknes), Other (R. ICA stent) Other Medical History: Renal (Stage IV renal dx) Anesthesia History: Past Anesthesia (Left CEA, dental sx, T&A, Pilonidal cyst) Alcohol Use: none Drug use: none Medications and Allergies Clopidogrel [Plavix] 75 mg PO DAILY 07/28/15 [History] Albuterol Sulfate [Albuterol Inhaler] 2 puff IH Q4HR PRN 07/13/16 [History] Aspirin [Lo-Dose Aspirin EC] 81 mg PO DAILY 02/07/17 [History] Lovastatin 80 mg PO HS 02/07/17 [History] amLODIPine [Norvasc] 5 mg PO DAILY 02/07/17 [History] Oxybutynin [Ditropan] 10 mg PO DAILY 10/19/17 [History] Budesonide [Pulmicort Flexhaler 180mcg] 1 puff IH BID 10/20/17 [History] Lisinopril-HCTZ 10-12.5 [Prinzide 10-12.5] 1 tab PO DAILY 10/20/17 [History] Nitroglycerin [Nitrostat] 0.4 mg SL Q5M PRN 10/20/17 [History] Oxycodone HCl/Acetaminophen [Percocet 10-325 mg Tablet] 1 tab PO TID PRN [History] 3 Allergy/AdvReac Type Severity Reaction Status Date / Time Beta-Blockers AdvReac See Verified 05/26/17 07:19 (Beta-Adrenergic Bloc Comments - Meds/Allergy Pre-op Review Medications Reviewed: Yes Allergies Reviewed: Yes Beta Blockers on Current Med List: No Anesthesia Results - Labs 10/23/17 06:24 10/23/17 06:24 Echo with Saline Contrast Name: Jonathan Hartley Date of Study: 04/01/2016 Impressions: Normal LV systolic function, LVEF 60%. Atypical septal motion is noted. Mild concentric left ventricular hypertrophy. Mild left ventricular diastolic dysfunction. Normal right ventricular structure and function. Mildly dilated right atrium. No evidence of intracardiac shunting with agitated saline contrast (fair quality study). No significant valvular dysfunction. Unable to estimate RVSP due to lack of TR jet. Borderline dilated aortic root and proximal ascending aorta, measuring 4.0 cm in diameter. - Imaging EKG: report reviewed (SR with PAC's) Anesthesia Exam O2 Sat O2 Sat by Pulse Oximetry 90 O2 Sat by Pulse Oximetry 94 O2 Sat by Pulse Oximetry 94 O2 Sat by Pulse Oximetry 91 O2 Sat by Pulse Oximetry 93 O2 Sat by Pulse Oximetry 95 Vital Signs Temp Pulse Resp BP Pulse Ox 97.7 F 77 15 105/65 96 10/20/17 09:06 10/20/17 09:06 10/20/17 09:06 10/20/17 09:06 10/20/17 09:06 NPO (# of Hours): > 8 Hrs Pain Scale: 0 Pain Scale Used: Numeric (1 - 10) - HEENT Pupil (Motor): Pupils equal, EOMI Mallampati: II Teeth: Edentulous Oral Opening: Greater than 3 - ORCHESTRATOR ORCHESTRATOR Motor: Normal RUE, Normal RLE, Normal Face, Deficit LUE, Deficit LLE ORCHESTRATOR Sensory: Normal: RUE, LUE, RLE, LLE, Face - Cardiac Rhythm: Regular Murmur: None JVD: No Carotid Bruit: No - Pulmonary Breath Sounds: bilateral Clear Respiratory Effort: Symmetrical Anesthesia Assess/Plan ASA Score: 3 Modified Tiller Scale for Level of Consciousness: Cooperative, oriented, and tranquil Anesthetic Plan: General Autologous Blood: Yes Monitoring Plan: Standard Monitors Recovery Plan: PACU
[2017-10-23] MEDS ORDERED: Albuterol 2.5 MG/3 ML NEBULIZER IH ONE (07:10)
[2017-10-23] MEDS ORDERED: *HR* Promethazine 25 MG/ML VIAL IVP PRN (07:14)
[2017-10-23] MEDS ORDERED: MORPHINE SUL Oral CONC 10 MG/0.5 ML ORAL.SYG SL PRN ×2 (07:14→07:20)
[2017-10-23] MEDS ORDERED: *HR* OxyCODONE Immed Rel 5 MG TABLET PO PRN (07:14)
[2017-10-23] MEDS ORDERED: Ondansetron 4 MG/2 ML VIAL IVP ONE (07:14)
[2017-10-23] MEDS ORDERED: *HR* Meperidine 25 MG/ML SYRINGE IVP PRN (07:14)
[2017-10-23] MEDS ORDERED: Acetaminophen IV 1,000 MG/100 ML INFUS..BTL IVPB ONE (07:14)
[2017-10-23] MEDS ORDERED: Albuterol 2.5 MG/3 ML NEBULIZER ONE (07:15)
[2017-10-23] MEDS ORDERED: *HR* Midazolam HCl 2 MG/2 ML VIAL ONE (07:26)
[2017-10-23] MEDS ORDERED: *HR* Propofol 200 MG/20 ML VIAL IVP ONE (07:26)
[2017-10-23] MEDS ORDERED: *HR* FentaNYL (PF) 100 MCG/2 ML VIAL ONE (07:26)
[2017-10-23 08:09] LABS: Basophils # 0.1 K/mcL (0.0-0.2); Basophils % 0.3 %; Eosinophils # 3.1 K/mcL (0.0-0.6); Eosinophils % 11.1 %; Hematocrit 30.4 % (37.5-50.1); Hemoglobin 9.3 g/dL (12.9-16.9); Immature Granulocytes % 1.8 % (0-4); Immature Platelets 3.2 % (1.1-6.1); Lymphocytes # 0.8 K/mcL (0.6-4.6); Lymphocytes % 2.8 %; Mean Corpuscular HGB Conc 30.6 g/dL (31.6-35.5); Mean Corpuscular Hemoglobin 27.5 pg (28.0-33.3); Mean Corpuscular Volume 89.9 fL (83.0-100.0); Mean Platelet Volume 10.5 fL (9.4-12.4); Monocytes # 3.7 K/mcL (0.0-1.3); Monocytes % 13.3 %; Neutrophils # 19.7 K/mcL (1.6-8.9); Nucleated Red Blood Cells 0.2 /100 WBC (0); Platelet Count 320 K/mcL (140-400); Red Blood Count 3.38 M/mcL (4.19-5.50); Red Cell Distribution Width 13.6 % (11.5-14.5); Segmented Neutrophils % 70.7 %
[2017-10-23 08:18] LABS: Platelet Estimate Normal (Normal)
[2017-10-23 08:35] LABS: Calcium 8.7 mg/dL (8.6-10.3); Potassium 4.4 mEq/L (3.5-5.1)
[2017-10-23] MEDS ORDERED: EPHEDrine 50 MG/ML VIAL ONE (08:39)
--- NOTE | 2017-10-23 08:41 | Event Note ---
<Dana Ruby - Last Filed: 10/23/17 08:39> Date of Encounter: 10/23/17 Time of Encounter: 08:39 Palliative Care Note: Stopped by the patient's room this morning to see the patient. The patient is not in the room at this time, he is down in the operating room for his procedure. Palliative will plan to see the patient Tuesday morning. Please call with any urgent issues. <Oscar Chirinos - Last Filed: 10/23/17 08:42> Date of Encounter: 10/23/17
--- NOTE | 2017-10-23 09:35 | Operative Note ---
Date of procedure: 10/23/17 Pre-op diagnosis: bladder tumor with metastatic lesions Post-op diagnosis: same Procedure: Transurethral section of bladder tumor large Anesthesia: GETA Surgeon: Mauro Ocampo Was there an timber management assistant present: No Estimated blood loss (cc): 25 Specimen: Bladder tumor Condition: stable Disposition: PACU Procedure in Detail: All risks benefits and alternatives to the procedure were discussed with the patient in the holding room. The informed consent was reviewed with the patient and he agreed to proceed with the scheduled procedure. Patient was taken to the operating room. Timeout procedure performed. The bipolar resectoscope was inserted into the patient's bladder. A large amount of necrotic debris was initially seen in the patient's bladder. I then used the Eben syringe to irrigate this out the patient's bladder. Once this was removed and the bladder I was able to visualize a very large red erythematous tumor from the top of the right dome all the way down the right lateral wall crossing the trigone encompassing over the left ureteral orifice. I then proceeded to resect this entire area which was approximately 10 cm in total length by 8 cm in total depth. The tumor was unresectable. Even upon deeper section obvious tumor was seen. I was unable to visualize the right ureteral orifice throughout the entire case. I did visualize the left ureteral orifice which had tumor around it. I resected using the cut function over the ureteral orifice to remove tumor adjacent to it. The UO appeared intact at the end of that portion of the procedure. I then removed all specimen from the patient's bladder using the Eben syringe. I then inserted the button electrode and proceeded to fulgurate the entire resection bed. No obvious bleeding was noted. I then removed the scope and attempted to place a 22-[place] 3-way catheter. I was unable to negotiate this catheter beyond the patient's prostate. I then placed the scope back into the patient's bladder and placed a Glidewire into the patient's bladder and then over the Glidewire I was able to place the 22-[place] 3-way catheter into the patient's bladder. 30 mL was placed into the balloon. Patient was taken to PACU in stable condition.
--- NOTE | 2017-10-23 10:10 | Anesthesia Evaluation Post Op ---
Date of Encounter: 10/23/17 Time of Encounter: 10:10 - Vital Signs Vital Signs: Vital Signs/O2 Sat, Most Current Temp Pulse Resp BP Pulse Ox 98.2 F 78 20 158/88 97 10/23/17 09:34 10/23/17 09:54 10/23/17 09:54 10/23/17 09:54 10/23/17 09:54 - Lungs Lungs: Clear Ascult./Percussion - Airway Airway: Non-obstructed - Cardiovascular Regular Rate - Mental Status Mental Status: Alert & Oriented, Answers Appropriately - Pain Pain Scale: 0 Pain Scale used: Numeric (1 - 10) - Nausea Vomiting Nausea Vomiting: Not Present - Hydration Hydration: NPO, Garrison catheter - Discharge PostOp Status: Transfer Patient to floor
[2017-10-23] MEDS ORDERED: Naloxone 0.4 MG/ML INJ IVP PRN (10:24)
[2017-10-23] MEDS ORDERED: Ondansetron ODT 4 MG TAB.RAPDIS SL PRN (10:24)
[2017-10-23] MEDS ORDERED: *HR* Rocuronium Bromide 50 MG/5 ML VIAL ONE ×2 (11:40→11:41)
--- NOTE | 2017-10-23 18:37 | Internal Med Progress Note ---
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 Still not interested in nephrostomy tubes. S/P transurethral section of bladder tumor today. Tissue sent for cancer diagnosis. Plan to begin palliative radiotherapy after after confirmation of malignancy. Continue Oxybutynin and levsin. Maintain adequate pain control; will continue percocet and add fentanyl 25 mcg IV Q6H PRN for breakthrough pain. (2) UTI (urinary tract infection) Current Visit: Yes Status: Resolved Assessment and plan: Urine culture no growth final. Still has leukocytosis. Discontinued IV zosyn. Recheck CBC in AM. 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 Plan as per above. (4) CKD (chronic kidney disease) stage 3, GFR 30-59 ml/min Current Visit: Yes Status: Chronic Assessment and plan: Cr baseline is between 1.7 to 2, at baseline at this time. Recheck BMP in AM. (5) Carotid stenosis, bilateral Current Visit: Yes Status: Chronic Assessment and plan: Continue ASA and Plavix. (6) Essential hypertension Current Visit: Yes Status: Chronic Assessment and plan: Continue home medications. (7) Coronary artery disease Current Visit: Yes Status: Chronic Assessment and plan: Continue home medications. Qualifiers: Coronary Disease-Associated Artery/Lesion type: [place] artery [place] vs. transplanted heart: [place] heart Associated angina: without angina Qualified Code(s): I25.10 - Atherosclerotic heart disease of [place] coronary artery without angina pectoris (8) COPD (chronic obstructive pulmonary disease) Current Visit: Yes Status: Chronic Assessment and plan: Continue duonebs PRN. Qualifiers: COPD type: emphysema Emphysema type: panlobular Qualified Code(s): J43.1 - Panlobular emphysema (9) Mixed hyperlipidemia Current Visit: Yes Status: Chronic Assessment and plan: Continue home medications. (10) Tobacco abuse Current Visit: Yes Status: Chronic Assessment and plan: Counselled. Continue nicotine transdermal. (11) DVT prophylaxis Current Visit: Yes Status: Acute Assessment and plan: Heparin held for transurethral section procedure. Continue SCDs for now. - Time Spent With Patient less than 15 minutes - Subjective Interval history: Patient had no acute events overnight. He had transurethral section of bladder tumor done today. He says it went well. He states that fentayl worked good for breakthrough pain; he wants this ordered as needed for breakthrough pain because percocet is not enough. 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 Family wants him to consider hospice at [facility] because he cannot take care of himself at home. He has no other complaints. - Constitutional Vitals: Temp Pulse Resp BP Pulse Ox 98.0 F 80 16 123/75 95 10/23/17 15:13 10/23/17 15:13 10/23/17 15:13 10/23/17 15:13 10/23/17 15:13 General appearance: Present: A&O X 3, no acute distress, answers questions appropriately - Respiratory Respiratory exam: Present: CTAB. Absent: accessory muscle use, rales, rhonchi, wheezes Additional comments: Normal WOB - Cardiovascular Cardiovascular exam: Present: RRR, +S1, +S2. Absent: diastolic murmur, gallop, rubs, systolic murmur Additional comments: No BLE edema - GI/Abdominal GI/Abdominal exam: Present: normal bowel sounds, soft. Absent: distended, hepatomegaly, mass, splenomegaly, tenderness - Neurological Exam Neurological exam: Present: alert, oriented X3 Additional comments: Chronic right-sided weakness secondary to prior CVA - Psychiatric Psychiatric exam: Present: normal affect, normal mood. Absent: anxious, depressed Additional comments: Poor judgment and insight - Skin Skin exam: Present: dry, warm. Absent: cyanosis, rash Internal Medicine: Result - Labs CBC & Chem 7: 10/23/17 06:24 10/23/17 06:24 Labs: Short CBC 10/23/17 Range/Units 06:24 WBC 27.8 H (4.3-11.1) K/mcL Hgb 9.3 L (12.9-16.9) g/dL Hct 30.4 L (37.5-50.1) % Plt Count 320 (140-400) K/mcL Neutrophils # 19.7 H (1.6-8.9) K/mcL BMP 10/23/17 06:24 Sodium 133 L Potassium 4.4 Chloride 101 Carbon Dioxide 26 BUN 26 H Creatinine 1.58 H Glucose 107 H Calcium 8.7 - ABG Interpretation ABG results: PT/INR, D-dimer PT 15.4 Seconds (9.4-12.1) H 10/22/17 09:36 - VTE Documentation of Mechanical Device: Intermittent pneumatic compression device Consult Discharge Plan - Plan Referrals: Arturo Crabtree MD [Primary Care Provider] -
[2017-10-23] MEDS: *HR* FentaNYL (PF) 100 MCG/2 ML VIAL IVP PRN (19:52)
[2017-10-24] MEDS: *HR* Belladonna Alkaloids/Opium 60 MG RECTAL SUPPOSITORY RC SCH ×4 (00:43→17:37)
[2017-10-24] MEDS: *HR* FentaNYL (PF) 100 MCG/2 ML VIAL IVP PRN ×6 (01:51→20:00)
[2017-10-24] MEDS: *HR* OxyCODONE/APAP 10/325 TABLET PO PRN (04:48)
--- NOTE | 2017-10-24 07:38 | Urology Progress Note ---
Date of Encounter: 10/24/17 Time of Encounter: 07:36 - Assessment and Plan (1) Hydronephrosis due to obstructive malignant bladder cancer Current Visit: Yes Status: Acute Assessment and plan: Labs pending today. Concern for potential future obstruction of left ureter giving location of tumor throughout the patient's bladder. Patient still not interested in right nephrostomy tube (2) CKD (chronic kidney disease) stage 3, GFR 30-59 ml/min Current Visit: Yes Status: Chronic Assessment and plan: Labs pending at this time (3) Mass of urinary bladder Current Visit: No Status: Acute Assessment and plan: Based on yesterday's TURBT patient has high-grade bladder cancer. Awaiting final pathology for definitive diagnosis. I did discuss with the patient possible options of leaving catheter in place versus removing catheter. At this time the patient would like to continue with his catheter as he is no longer voiding on himself. (4) Bladder pain Current Visit: Yes Status: Acute Assessment and plan: I recommended for the patient to continue to try to take the B and O suppositories. He states that he is concerned about them causing loose bowel movements. Primary team and palliative care to work on pain control. Progress Note Narrative: Postoperative day 1 from transurethral section of bladder tumor. Patient states that he still is having significant pelvic and bladder discomfort. Patient is currently refusing and B&O suppositories. Urine was clear without any clots overnight. Objective Initial Vital Signs Temp Pulse Resp BP Pulse Ox 97.7 F 77 15 105/65 96 10/20/17 09:06 10/20/17 09:06 10/20/17 09:06 10/20/17 09:06 10/20/17 09:06 - General physical appearance Present: well developed, moderate distress, severe pain - Respiratory Present: normal expansion, normal respiratory effort - Abdomen Present: soft. Absent: tender - Genitourinary Present: other (Urine clear in tubing) - Labs 10/23/17 06:24 10/23/17 06:24 Diabetes panel 10/23/17 Range/Units 06:24 Sodium 133 L (136-145) mEq/L Potassium 4.4 (3.5-5.1) mEq/L Chloride 101 (98-107) mEq/L Carbon Dioxide 26 (23-29) mEq/L BUN 26 H (8-23) mg/dL Creatinine 1.58 H (0.70-1.30) mg/dL Glucose 107 H (70-105) mg/dL Calcium 8.7 (8.6-10.3) mg/dL Calcium panel 10/23/17 Range/Units 06:24 Calcium 8.7 (8.6-10.3) mg/dL Pituitary panel 10/23/17 Range/Units 06:24 Sodium 133 L (136-145) mEq/L Potassium 4.4 (3.5-5.1) mEq/L Chloride 101 (98-107) mEq/L Carbon Dioxide 26 (23-29) mEq/L BUN 26 H (8-23) mg/dL Creatinine 1.58 H (0.70-1.30) mg/dL Glucose 107 H (70-105) mg/dL Calcium 8.7 (8.6-10.3) mg/dL Adrenal panel 10/23/17 Range/Units 06:24 Sodium 133 L (136-145) mEq/L Potassium 4.4 (3.5-5.1) mEq/L Chloride 101 (98-107) mEq/L Carbon Dioxide 26 (23-29) mEq/L BUN 26 H (8-23) mg/dL Creatinine 1.58 H (0.70-1.30) mg/dL Glucose 107 H (70-105) mg/dL Calcium 8.7 (8.6-10.3) mg/dL - VTE Documentation of Mechanical Device: Intermittent pneumatic compression device Consult Discharge Plan - Plan Referrals: Arturo Crabtree MD [Primary Care Provider] -
[2017-10-24] MEDS ORDERED: *HR* FentaNYL (PF) 100 MCG/2 ML VIAL IVP PRN (08:10)
[2017-10-24] MEDS: *HR* OxyCODONE Immed Rel 15 MG TABLET PO PRN ×4 (08:48→22:12)
[2017-10-24] MEDS: amLODIPine 5 MG TABLET PO SCH (08:49)
[2017-10-24] MEDS: Nicotine 21 MG PATCH.TD24 TD SCH (08:49)
[2017-10-24] MEDS: Pantoprazole 40 MG VIAL IVP SCH (08:49)
[2017-10-24 09:36] LABS: Red Cell Distribution Width 13.7 % (11.5-14.5)
[2017-10-24 09:37] LABS: Hematocrit 33.6 % (37.5-50.1); Hemoglobin 10.2 g/dL (12.9-16.9); Mean Corpuscular HGB Conc 30.4 g/dL (31.6-35.5); Mean Corpuscular Hemoglobin 27.3 pg (28.0-33.3); Mean Corpuscular Volume 89.8 fL (83.0-100.0); Mean Platelet Volume 9.9 fL (9.4-12.4); Platelet Count 336 K/mcL (140-400); Red Blood Count 3.74 M/mcL (4.19-5.50)
[2017-10-24 09:43] LABS: BUN/Creatinine Ratio 21 (6-26); Blood Urea Nitrogen 30 mg/dL (8-23); Calcium 9.1 mg/dL (8.6-10.3); Carbon Dioxide 25 mEq/L (23-29); Chloride 104 mEq/L (98-107); Glucose 118 mg/dL (70-105); Osmolality,Calculated 287 (280-300); Potassium 4.8 mEq/L (3.5-5.1); Sodium 135 mEq/L (136-145); eGFR For African Americans > 60 (> 60); eGFR For Non-African Americans 50 (> 60)
[2017-10-24 10:28] LABS: Eosinophils # 0.6 K/mcL (0.0-0.6); Lymphocytes # 0.6 K/mcL (0.6-4.6); Monocytes # 3.3 K/mcL (0.0-1.3); Neutrophils # 23.1 K/mcL (1.6-8.9); Platelet Estimate Normal (Normal)
--- NOTE | 2017-10-24 10:50 | Palliative Progress Note ---
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 Increase the patient' s oxycodone to 15 mg and decrease the dosing interval to every 3 hours I have stopped the Percocet I have increased the when necessary fentanyl pushes to 50 mics every 2 hours when necessary. (4) Goals of care, counseling/discussion Current Visit: Yes Status: Acute Assessment and plan: Agent DNR CCA DNI. Patient wishes to have either radiation if this is available , and then going to hospice. Certainly hospice eligible. - Time Spent With Patient Total time spent is greater than 50% in coordination of care (as documented) at patient's floor/unit and/or counseling patient: - Subjective Interval history: Patient states medications are not holding him. As the pills seem to be for fairly effective but they are not lasting nearly long enough. He when necessary 's of fentanyl are not adequate. Otherwise he he feels he is doing okay. - Constitutional Vitals: Abnormal lab results WBC 27.5 K/mcL (4.3-11.1) H 10/24/17 09:02 RBC 3.74 M/mcL (4.19-5.50) L 10/24/17 09:02 Hgb 10.2 g/dL (12.9-16.9) L 10/24/17 09:02 Hct 33.6 % (37.5-50.1) L 10/24/17 09:02 MCH 27.3 pg (28.0-33.3) L 10/24/17 09:02 MCHC 30.4 g/dL (31.6-35.5) L 10/24/17 09:02 Neutrophils # 23.1 K/mcL (1.6-8.9) H 10/24/17 09:02 Monocytes # 3.3 K/mcL (0.0-1.3) H 10/24/17 09:02 Nucleated RBCs/100 WBC 0.2 /100 WBC (0) H 10/23/17 06:24 Reactive Lymphocytes Present (Not Present) A 10/21/17 04:54 PT 15.4 Seconds (9.4-12.1) H 10/22/17 09:36 Sodium 135 mEq/L (136-145) L 10/24/17 09:02 BUN 30 mg/dL (8-23) H 10/24/17 09:02 Creatinine 1.42 mg/dL (0.70-1.30) H 10/24/17 09:02 Est GFR (Non-Af Amer) 50 (> 60) L 10/24/17 09:02 Glucose 118 mg/dL (70-105) H 10/24/17 09:02 POC Glucose 118 (58-89) H 10/21/17 05:06 General appearance: Present: no acute distress - Respiratory Respiratory exam: Present: CTAB - Cardiovascular Cardiovascular exam: Present: RRR - GI/Abdominal GI/Abdominal exam: Present: normal bowel sounds, soft. Absent: tenderness - Extremities Exam Extremities exam: Present: normal inspection. Absent: pedal edema, tenderness - Neurological Exam Neurological exam: Present: alert, oriented X3 - Psychiatric Psychiatric exam: Absent: agitated, anxious - Skin Skin exam: Present: dry, warm Palliative Quality Palliative Quality: Screen for Code Status: Yes, Screen for Goals of Care: Yes, Screen for Pain: Yes, If Pain Regimen Started, Initiate Bowel Regimen: Yes, Screen for Nausea/Vomitting: Yes Code Status: 10/20/17 08:45 Resuscitation Status: Active [RES] Routine Comment: Resuscitation Status: Full Code Resuscitation Status: Active [RES] Routine Comment: Resuscitation Status: [id number] - Labs CBC & Chem 7: 10/24/17 09:02 10/24/17 09:02 Labs: Laboratory Results - last 24 hr 10/24/17 10/24/17 09:02 09:02 WBC 27.5 H RBC 3.74 L Hgb 10.2 L Hct 33.6 L MCV 89.8 MCH 27.3 L MCHC 30.4 L RDW 13.7 Plt Count 336 MPV 9.9 Seg Neutrophils % 82.0 Band Neutrophils % 2.0 Lymphocytes % 2.0 Monocytes % 12.0 Eosinophils % 2.0 Neutrophils # 23.1 H Lymphocytes # 0.6 Monocytes # 3.3 H Eosinophils # 0.6 Platelet Estimate Normal Sodium 135 L Potassium 4.8 Chloride 104 Carbon Dioxide 25 BUN 30 H Creatinine 1.42 H Est GFR ( Amer) > 60 Est GFR (Non-Af Amer) 50 L BUN/Creatinine Ratio 21 Glucose 118 H Calculated Osmolality 287 Calcium 9.1 - ABG Interpretation ABG results: PT/INR, D-dimer PT 15.4 Seconds (9.4-12.1) H 10/22/17 09:36 Consult Discharge Plan - Plan Referrals: Arturo Crabtree MD [Primary Care Provider] -
--- NOTE | 2017-10-24 14:01 | Event Note ---
Date of Encounter: 10/24/17 Time of Encounter: 13:59 pain reeval, pt cont to c/o pain states the meds seemed to work but wear off rather quickly. I believe this to be a dosing interval problem and have therefore changed the dosing interval for the oxycodone down to every 2 hours when necessary as well as the fentanyl every 1 hour when necessary. Will utilize the total use in 24 hours to calculate out fentanyl patch for the patient as his kidney function is at least impaired I expect that it will get worse, therefore I am not anticipating using long-lasting morphine. The patient informs me that he has been told there will be no palliative radiation therapy therefore I have gone ahead and put in a consult to hospice give him information in [place] prepared for discharge. The patient has told me he wishes documented with a DNR and therefore I am contacting [facility]. Palliative continues to follow.
--- NOTE | 2017-10-24 19:38 | Internal Med Progress Note ---
Date of Encounter: 10/24/17 Time of Encounter: 19:36 - Assessment and plan (1) Hydronephrosis due to obstructive malignant bladder cancer Current Visit: Yes Status: Acute Assessment and plan: Urology and oncology consulted; appreciate input. Still not interested in nephrostomy tubes. S/P transurethral section of bladder tumor yesterday. Tissue sent for cancer diagnosis. Plan to begin palliative radiotherapy after after confirmation of malignancy. Continue Oxybutynin and levsin. Maintain adequate pain control; will consult with palliative care about pain control regimen. Plan for discharge home with home hospice. (2) UTI (urinary tract infection) Current Visit: Yes Status: Resolved Assessment and plan: Urine culture no growth final. Still has leukocytosis. Discontinued IV zosyn. Recheck CBC in AM. 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 Plan as per above. (4) CKD (chronic kidney disease) stage 3, GFR 30-59 ml/min Current Visit: Yes Status: Chronic Assessment and plan: Cr baseline is between 1.7 to 2, at baseline at this time. Recheck BMP in AM. (5) Carotid stenosis, bilateral Current Visit: Yes Status: Chronic Assessment and plan: Continue ASA and Plavix. (6) Essential hypertension Current Visit: Yes Status: Chronic Assessment and plan: Continue home medications. (7) Coronary artery disease Current Visit: Yes Status: Chronic Assessment and plan: Continue home medications. Qualifiers: Coronary Disease-Associated Artery/Lesion type: [place] artery [place] vs. transplanted heart: [place] heart Associated angina: without angina Qualified Code(s): I25.10 - Atherosclerotic heart disease of [place] coronary artery without angina pectoris (8) COPD (chronic obstructive pulmonary disease) Current Visit: Yes Status: Chronic Assessment and plan: Continue duonebs PRN. Restarted home QVAR today. Qualifiers: COPD type: emphysema Emphysema type: panlobular Qualified Code(s): J43.1 - Panlobular emphysema (9) Mixed hyperlipidemia Current Visit: Yes Status: Chronic Assessment and plan: Continue home medications. (10) Tobacco abuse Current Visit: Yes Status: Chronic Assessment and plan: Counselled. Continue nicotine transdermal. (11) DVT prophylaxis Current Visit: Yes Status: Acute Assessment and plan: Continue SCDs. - Time Spent With Patient less than 15 minutes - Subjective Interval history: Patient had no acute events overnight. He still complains of pain. I advised him that I will talk to palliative about pain control recommendations. He denies fever, chills, nausea, and vomiting. He is planning on going home with sister with home hospice. Sister states that they are preparing house for him. He has no other complaints. - Constitutional Vitals: Temp Pulse Resp BP Pulse Ox 98.2 F 84 18 134/81 93 10/24/17 16:10 10/24/17 16:10 10/24/17 16:10 10/24/17 16:10 10/24/17 16:10 General appearance: Present: A&O X 3, no acute distress, answers questions appropriately - Respiratory Respiratory exam: Present: CTAB. Absent: accessory muscle use, rales, rhonchi, wheezes Additional comments: Normal WOB - Cardiovascular Cardiovascular exam: Present: RRR, +S1, +S2. Absent: diastolic murmur, gallop, rubs, systolic murmur Additional comments: No BLE edema - GI/Abdominal GI/Abdominal exam: Present: normal bowel sounds, soft. Absent: distended, hepatomegaly, mass, splenomegaly, tenderness - Neurological Exam Neurological exam: Present: alert, CN II-XII intact, oriented X3 Additional comments: Chronic right-sided weakness secondary to prior CVA - Psychiatric Psychiatric exam: Present: normal affect, normal mood. Absent: anxious, depressed - Skin Skin exam: Present: dry, warm. Absent: cyanosis, rash Internal Medicine: Result - Labs CBC & Chem 7: 10/24/17 09:02 10/24/17 09:02 Labs: Short CBC 10/24/17 Range/Units 09:02 WBC 27.5 H (4.3-11.1) K/mcL Hgb 10.2 L (12.9-16.9) g/dL Hct 33.6 L (37.5-50.1) % Plt Count 336 (140-400) K/mcL Neutrophils # 23.1 H (1.6-8.9) K/mcL BMP 10/24/17 09:02 Sodium 135 L Potassium 4.8 Chloride 104 Carbon Dioxide 25 BUN 30 H Creatinine 1.42 H Glucose 118 H Calcium 9.1 - ABG Interpretation ABG results: PT/INR, D-dimer PT 15.4 Seconds (9.4-12.1) H 10/22/17 09:36 - VTE Documentation of Mechanical Device: Intermittent pneumatic compression device Consult Discharge Plan - Plan Referrals: Arturo Crabtree MD [Primary Care Provider] -
[2017-10-24] MEDS: Beclomethasone 40mcg MDI IH SCH (19:55)
[2017-10-25] MEDS: *HR* Belladonna Alkaloids/Opium 60 MG RECTAL SUPPOSITORY RC SCH ×5 (00:31→23:48)
[2017-10-25] MEDS: *HR* OxyCODONE Immed Rel 15 MG TABLET PO PRN ×2 (00:36→05:05)
[2017-10-25] MEDS: *HR* FentaNYL (PF) 100 MCG/2 ML VIAL IVP PRN ×3 (02:00→13:32)
--- NOTE | 2017-10-25 07:07 | Urology Progress Note ---
Date of Encounter: 10/25/17 Time of Encounter: 07:04 - Assessment and Plan (1) Hydronephrosis due to obstructive malignant bladder cancer Current Visit: Yes Status: Acute (2) CKD (chronic kidney disease) stage 3, GFR 30-59 ml/min Current Visit: Yes Status: Chronic (3) Mass of urinary bladder Current Visit: No Status: Acute Assessment and plan: continue catheter at this time. ok to dc catheter if patient desires. awaiting final pathology. no f/u with urology needed as patient going home on hospice unless patient goes home with catheter and then will need f/u in 1 month for catheter change. initial catheter placement in the OR was difficult. (4) Bladder pain Current Visit: Yes Status: Acute Progress Note Narrative: Patient seen. sleeping this am. no new changes. no fevers. Objective Initial Vital Signs Temp Pulse Resp BP Pulse Ox 97.7 F 77 15 105/65 96 10/20/17 09:06 10/20/17 09:06 10/20/17 09:06 10/20/17 09:06 10/20/17 09:06 - General physical appearance Present: well developed, well nourished - Respiratory Present: normal expansion, normal respiratory effort - Abdomen Present: soft - Genitourinary Present: normal penis with no external lesions (urine clear off irrigation. ) - Labs 10/24/17 09:02 10/24/17 09:02 Diabetes panel 10/24/17 Range/Units 09:02 Sodium 135 L (136-145) mEq/L Potassium 4.8 (3.5-5.1) mEq/L Chloride 104 (98-107) mEq/L Carbon Dioxide 25 (23-29) mEq/L BUN 30 H (8-23) mg/dL Creatinine 1.42 H (0.70-1.30) mg/dL Glucose 118 H (70-105) mg/dL Calcium 9.1 (8.6-10.3) mg/dL Calcium panel 10/24/17 Range/Units 09:02 Calcium 9.1 (8.6-10.3) mg/dL Pituitary panel 10/24/17 Range/Units 09:02 Sodium 135 L (136-145) mEq/L Potassium 4.8 (3.5-5.1) mEq/L Chloride 104 (98-107) mEq/L Carbon Dioxide 25 (23-29) mEq/L BUN 30 H (8-23) mg/dL Creatinine 1.42 H (0.70-1.30) mg/dL Glucose 118 H (70-105) mg/dL Calcium 9.1 (8.6-10.3) mg/dL Adrenal panel 10/24/17 Range/Units 09:02 Sodium 135 L (136-145) mEq/L Potassium 4.8 (3.5-5.1) mEq/L Chloride 104 (98-107) mEq/L Carbon Dioxide 25 (23-29) mEq/L BUN 30 H (8-23) mg/dL Creatinine 1.42 H (0.70-1.30) mg/dL Glucose 118 H (70-105) mg/dL Calcium 9.1 (8.6-10.3) mg/dL - VTE Documentation of Mechanical Device: Intermittent pneumatic compression device Consult Discharge Plan - Plan Referrals: Arturo Crabtree MD [Primary Care Provider] -
[2017-10-25] MEDS: Beclomethasone 40mcg MDI IH SCH ×2 (08:07→22:07)
--- NOTE | 2017-10-25 09:15 | Palliative Progress Note ---
<Dana Ruby - Last Filed: 10/25/17 09:53> Date of Encounter: 10/25/17 Time of Encounter: 09:13 - Assessment and plan (1) Goals of care, counseling/discussion Current Visit: Yes Status: Acute Assessment and plan: Current Code Status DNR-CCA/DNI. Pt has met with oncology and is pursuing radiation treatment currently for comfort. He does not want to pursue aggressive treatment at this time. Urology performe Transurethral section of bladder tumor / for biopsy, catheter currently in place. Pt wishes to go home with hospice care. He states that his pain is terrible, he is diaphoretic and writhing in bed. He states that his pain is all in his bladder and requests a shot. Pt currently receiving roxicodone 15mg Q2hr PRN, fentanyl IVP 50mcg Q1hr PRN. Will add fentanyl patch 50 mcg. (2) Mass of urinary bladder Current Visit: No Status: Acute Assessment and plan: Mass found on abdominal CT that urology feels is likely bladder cancer. Urine cytology and pathology for diagnosis is pending. He is pursuing radiation treatment for palliative measures. (3) Tobacco abuse Current Visit: Yes Status: Chronic Assessment and plan: Pt desires to continue smoking. Continue nicotine patch. - Time Spent With Patient Total time spent is greater than 50% in coordination of care (as documented) at patient's floor/unit and/or counseling patient: - Subjective Interval history: Pt seen and examined. He states that his pain is terrible and requests a shot for pain. He is still planning on going home with hospice care. - Constitutional Vitals: Abnormal lab results WBC 27.5 K/mcL (4.3-11.1) H 10/24/17 09:02 RBC 3.74 M/mcL (4.19-5.50) L 10/24/17 09:02 Hgb 10.2 g/dL (12.9-16.9) L 10/24/17 09:02 Hct 33.6 % (37.5-50.1) L 10/24/17 09:02 MCH 27.3 pg (28.0-33.3) L 10/24/17 09:02 MCHC 30.4 g/dL (31.6-35.5) L 10/24/17 09:02 Neutrophils # 23.1 K/mcL (1.6-8.9) H 10/24/17 09:02 Monocytes # 3.3 K/mcL (0.0-1.3) H 10/24/17 09:02 Nucleated RBCs/100 WBC 0.2 /100 WBC (0) H 10/23/17 06:24 Reactive Lymphocytes Present (Not Present) A 10/21/17 04:54 PT 15.4 Seconds (9.4-12.1) H 10/22/17 09:36 Sodium 135 mEq/L (136-145) L 10/24/17 09:02 BUN 30 mg/dL (8-23) H 10/24/17 09:02 Creatinine 1.42 mg/dL (0.70-1.30) H 10/24/17 09:02 Est GFR (Non-Af Amer) 50 (> 60) L 10/24/17 09:02 Glucose 118 mg/dL (70-105) H 10/24/17 09:02 POC Glucose 118 (58-89) H 10/21/17 05:06 General appearance: Present: average body habitus, disheveled, mild distress Exam: pt diaphoretic, writhing in bed calling out for water - Head Head exam: Present: atraumatic, normal inspection, normocephalic - Respiratory Respiratory exam: Present: rales. Absent: respiratory distress, rhonchi, stridor, wheezes, tachypnea - Cardiovascular Cardiovascular exam: Present: RRR - GI/Abdominal GI/Abdominal exam: Present: firm, normal bowel sounds, tenderness (suprapubic) - Extremities Exam Extremities exam: Present: normal inspection. Absent: pedal edema - Neurological Exam Neurological exam: Present: alert. Absent: speech deficit - Psychiatric Psychiatric exam: Present: agitated, anxious - Skin Skin exam: Present: diaphoretic, intact Palliative Quality Palliative Quality: Screen for Code Status: Yes, Screen for Goals of Care: Yes, Screen for Pain: Yes, If Pain Regimen Started, Initiate Bowel Regimen: Yes, Screen for Nausea/Vomitting: Yes Code Status: Resuscitation Status: Active [RES] Routine Comment: Resuscitation Status: [id number] - Labs CBC & Chem 7: 10/24/17 09:02 10/24/17 09:02 Labs: Laboratory Results - last 24 hr 10/24/17 10/24/17 09:02 09:02 WBC 27.5 H RBC 3.74 L Hgb 10.2 L Hct 33.6 L MCV 89.8 MCH 27.3 L MCHC 30.4 L RDW 13.7 Plt Count 336 MPV 9.9 Seg Neutrophils % 82.0 Band Neutrophils % 2.0 Lymphocytes % 2.0 Monocytes % 12.0 Eosinophils % 2.0 Neutrophils # 23.1 H Lymphocytes # 0.6 Monocytes # 3.3 H Eosinophils # 0.6 Platelet Estimate Normal Sodium 135 L Potassium 4.8 Chloride 104 Carbon Dioxide 25 BUN 30 H Creatinine 1.42 H Est GFR ( Amer) > 60 Est GFR (Non-Af Amer) 50 L BUN/Creatinine Ratio 21 Glucose 118 H Calculated Osmolality 287 Calcium 9.1 - ABG Interpretation ABG results: PT/INR, D-dimer PT 15.4 Seconds (9.4-12.1) H 10/22/17 09:36 Consult Discharge Plan - Plan Referrals: Arturo Crabtree MD [Primary Care Provider] - <Oscar Chirinos L - Last Filed: 10/25/17 10:25> Date of Encounter: 10/25/17 - Assessment and plan (1) Tobacco abuse Current Visit: Yes Status: Chronic (2) 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 Current Visit: Yes Status: Suspected (3) Bladder pain Current Visit: Yes Status: Acute (4) Goals of care, counseling/discussion Current Visit: Yes Status: Acute - Time Spent With Patient Total time spent is greater than 50% in coordination of care (as documented) at patient's floor/unit and/or counseling patient: - Constitutional Vitals: Abnormal lab results WBC 27.5 K/mcL (4.3-11.1) H 10/24/17 09:02 RBC 3.74 M/mcL (4.19-5.50) L 10/24/17 09:02 Hgb 10.2 g/dL (12.9-16.9) L 10/24/17 09:02 Hct 33.6 % (37.5-50.1) L 10/24/17 09:02 MCH 27.3 pg (28.0-33.3) L 10/24/17 09:02 MCHC 30.4 g/dL (31.6-35.5) L 10/24/17 09:02 Neutrophils # 23.1 K/mcL (1.6-8.9) H 10/24/17 09:02 Monocytes # 3.3 K/mcL (0.0-1.3) H 10/24/17 09:02 Nucleated RBCs/100 WBC 0.2 /100 WBC (0) H 10/23/17 06:24 Reactive Lymphocytes Present (Not Present) A 10/21/17 04:54 PT 15.4 Seconds (9.4-12.1) H 10/22/17 09:36 Sodium 135 mEq/L (136-145) L 10/24/17 09:02 BUN 30 mg/dL (8-23) H 10/24/17 09:02 Creatinine 1.42 mg/dL (0.70-1.30) H 10/24/17 09:02 Est GFR (Non-Af Amer) 50 (> 60) L 10/24/17 09:02 Glucose 118 mg/dL (70-105) H 10/24/17 09:02 POC Glucose 118 (58-89) H 10/21/17 05:06 - Attending Attestation I examined this patient and my medical decision-making was reviewed with the Resident Physician. I agree with the documented findings, disposition and treatment plan as described except to the extent set forth below. Palliative Quality Code Status: 10/20/17 08:45 Resuscitation Status: Active [RES] Routine Comment: Resuscitation Status: Full Code Resuscitation Status: Active [RES] Routine Comment: Resuscitation Status: [id number] - Labs CBC & Chem 7: 10/24/17 09:02 10/24/17 09:02 Labs: Laboratory Results - last 24 hr 10/24/17 09:02 Seg Neutrophils % 82.0 Band Neutrophils % 2.0 Lymphocytes % 2.0 Monocytes % 12.0 Eosinophils % 2.0 Neutrophils # 23.1 H Lymphocytes # 0.6 Monocytes # 3.3 H Eosinophils # 0.6 Platelet Estimate Normal - ABG Interpretation ABG results: PT/INR, D-dimer PT 15.4 Seconds (9.4-12.1) H 10/22/17 09:36
[2017-10-25] MEDS: Nicotine 21 MG PATCH.TD24 TD SCH (09:26)
[2017-10-25] MEDS: Pantoprazole 40 MG VIAL IVP SCH (09:27)
[2017-10-25] MEDS: amLODIPine 5 MG TABLET PO SCH (09:27)
[2017-10-25] MEDS: *HR* FentaNYL PATCH 50 MCG PATCH TD SCH (11:08)
--- NOTE | 2017-10-25 11:08 | Internal Med Progress Note ---
Date of Encounter: 10/25/17 Time of Encounter: 11:06 - Assessment and plan (1) Hydronephrosis due to obstructive malignant bladder cancer Current Visit: Yes Status: Acute Assessment and plan: Urology and oncology consulted; appreciate input. Still not interested in nephrostomy tubes. S/P transurethral section of bladder tumor , patholog is pending Plan is to begin palliative radiotherapy after after confirmation of malignancy. Continue Oxybutynin and levsin. Maintain adequate pain control;palliative care is following and has added fentanyl patch for pain Plan for discharge home with home hospice. 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 Plan as per above. (3) UTI (urinary tract infection) Current Visit: Yes Status: Resolved Assessment and plan: Urine culture no growth final. Still has leukocytosis. antibiotics discontinued. Qualifiers: Urinary tract infection type: site unspecified Hematuria presence: with hematuria Qualified Code(s): N39.0 - Urinary tract infection, site not specified; R31.9 - Hematuria, unspecified; R31.9 - Hematuria, unspecified (4) CKD (chronic kidney disease) stage 3, GFR 30-59 ml/min Current Visit: Yes Status: Chronic Assessment and plan: Cr baseline is between 1.7 to 2, at baseline at this time. Recheck BMP in AM. (5) COPD (chronic obstructive pulmonary disease) Current Visit: Yes Status: Chronic Assessment and plan: Continue duonebs PRN. Continue home QVAR Qualifiers: COPD type: emphysema Emphysema type: panlobular Qualified Code(s): J43.1 - Panlobular emphysema (6) Carotid stenosis, bilateral Current Visit: Yes Status: Chronic Assessment and plan: Continue ASA and Plavix. (7) Coronary artery disease Current Visit: Yes Status: Chronic Assessment and plan: Continue home medications. Qualifiers: Coronary Disease-Associated Artery/Lesion type: [place] artery [place] vs. transplanted heart: [place] heart Associated angina: without angina Qualified Code(s): I25.10 - Atherosclerotic heart disease of [place] coronary artery without angina pectoris (8) Essential hypertension Current Visit: Yes Status: Chronic Assessment and plan: Continue home medications. (9) Mixed hyperlipidemia Current Visit: Yes Status: Chronic Assessment and plan: Continue home medications. (10) Tobacco abuse Current Visit: Yes Status: Chronic Assessment and plan: Counselled. Continue nicotine transdermal. (11) DVT prophylaxis Current Visit: Yes Status: Acute Assessment and plan: Continue SCDs. - Subjective Interval history: Seen and examined at the bedside In intense pain from suprapubic region, catheter is draining clear urine with no visible blood clots Palliative care is following, plan was to discharge patient home on home hospice We will hold off discharge till pain control is established - Constitutional Vitals: Temp Pulse Resp BP Pulse Ox 98.6 F 90 18 135/72 91 10/25/17 05:08 10/25/17 10:46 10/25/17 10:46 10/25/17 10:46 10/25/17 10:46 General appearance: Present: A&O X 3, severe distress (in severe pain), answers questions appropriately - Head Head exam: Present: atraumatic, normocephalic - Eye Eye exam: Present: PERRL, conjuntiva pink, sclera anicteric Pupils: Present: PERRL - Neck Neck exam general surgery: Present: supple, trachea midline. Absent: lymphadenopathy - Respiratory Respiratory exam: Present: CTAB. Absent: accessory muscle use, rales, rhonchi, wheezes - Cardiovascular Cardiovascular exam: Present: RRR, +S1, +S2. Absent: diastolic murmur, gallop, rubs, systolic murmur - GI/Abdominal GI/Abdominal exam: Present: normal bowel sounds, soft, no peritoneal signs. Absent: distended, tenderness - Additional comments: [place] with clear urine - Extremities Exam Extremities exam: Present: warm, radial pulses palpable and symmetrical. Absent : calf tenderness, cyanotic, pedal edema - Neurological Exam Neurological exam: Present: alert, CN II-XII intact, oriented X3, no focal deficits. Absent: pronater drift, facial droop, speech deficit - Skin Skin exam: Present: dry, intact Internal Medicine: Result - Labs CBC & Chem 7: 10/24/17 09:02 10/24/17 09:02 - ABG Interpretation ABG results: PT/INR, D-dimer PT 15.4 Seconds (9.4-12.1) H 10/22/17 09:36 - VTE Documentation of Mechanical Device: Intermittent pneumatic compression device Consult Discharge Plan - Plan Referrals: Arturo Crabtree MD [Primary Care Provider] -
--- NOTE | 2017-10-25 11:49 | Oncology Inp Progress Note ---
Date of Encounter: 10/25/17 Time of Encounter: 11:49 (1) Mass of urinary bladder Current Visit: No Status: Acute Assessment and plan: Mr. Hartley is S/P transurethral section of bladder tumor with Dr. Ocampo on . He continues to decline right nephrostomy placement. Per Damaris's report, there is concern for high grade bladder carcinoma, awaiting pathology report and urine cytology, I did touch base with pathology today and results should be reported by end of day/early tomorrow. Discussed case with Dr. Chirinos and Jaspreet Sky [facility] regarding plan for discharge and coordination of palliative care. Patients pain currently uncontrolled at this time and requiring further pain medication adjustment. Dr. Chirinos has added fentanyl patch. He continues to desire palliative pelvic radiotherapy with the goal to help with his pain control. He had consultation with Dr. Tom last week and completed CT simulation. He is planned for 5 fractions of pelvic radiotherapy which will be started immediately following pathology conformation of malignancy. I am hopeful that he may begin treatments as early as tomorrow, will work with team for coordination. He continues to decline chemotherapy treatment or follow up with medical oncology. Discussed plan as above with patient and patients family at bedside today who understand and agree with plan of care. Oncology: Subj Interval history: 1140- At time of assessment patient is writhing in bed and uncomfortable, reports sharp cramping pain to lower abdomen/bladder area. By end of assessment he was able to relax and had fallen back to sleep. Patients cousin at bedside states he has been in pain anytime he is awake this morning. Dr. Chirinos with palliative care team working closely with patient and added fentanyl patch. Update: During afternoon rounds, patients sister Fang at bedside, patient reports better pain control and is now resting comfortably in bed. - Constitutional Vitals: Vital Signs Temp Pulse Resp BP Pulse Ox 10/25/17 10:46 90 18 135/72 91 10/25/17 08:08 16 92 10/25/17 05:08 98.6 F 84 16 139/79 92 10/25/17 00:26 98.7 F 95 16 157/72 92 10/24/17 21:25 97.6 F 99 16 131/73 92 10/24/17 19:55 18 93 10/24/17 16:10 98.2 F 84 18 134/81 93 Intake and Output 10/24/17 10/25/17 10/25/17 23:59 07:59 15:59 Intake Total 0 / 0 0 / 0 Balance 0 / 0 0 / 0 Intake: Oral 0 / 0 0 / 0 Other: Meal Pt refused Dinner tray Weight 82.6 kg Patient Weight 10/25/17 23:59 Weight 82.6 kg General appearance: disheveled, no acute distress, no febrile Exam: appears uncomfortable and in pain - Head Head exam: Present: atraumatic - ENT ENT exam: Present: mucous membranes moist - Respiratory Respiratory exam: Present: CTAB. Absent: respiratory distress - Cardiovascular Cardiovascular exam: Present: RRR, +S1, +S2 - GI/Abdominal GI/Abdominal exam: Present: normal bowel sounds, soft, tenderness - Extremities Exam Extremities exam: Present: normal inspection. Absent: calf tenderness - Neurological Exam Neurological exam: Present: alert, oriented X3, no focal deficits, strengths equal and symetr throughout - Psychiatric Psychiatric exam: Present: anxious - Skin Skin exam: Present: normal color, warm Oncology: Obj Data - Labs CBC & Chem 7: 10/24/17 09:02 10/24/17 09:02 - ABG Interpretation ABG results: PT/INR, D-dimer PT 15.4 Seconds (9.4-12.1) H 10/22/17 09:36 Consult Discharge Plan - Plan Referrals: Arturo Crabtree MD [Primary Care Provider] -
[2017-10-25] MEDS ORDERED: *HR* OxyCODONE Immed Rel 15 MG TABLET PO PRN (13:51)
--- NOTE | 2017-10-25 14:54 | Event Note ---
Date of Encounter: 10/25/17 Time of Encounter: 14:49 I noted that patient's when necessary fentanyl had been discontinued after I had given report of the patient having excruciating pain again. After discussing with pharmacy I now understand that hospitalist team is concerned about the patient getting meds by mouth, and that they wish to emphasize this over IV. I agree that the patient needs to be switched over to by mouth medications, and therefore I will increase his oxycodone to 20 mg and decrease the dosing interval to 1 hour when necessary. The patient does have a history that I am told about of drug abuse in the past, and this will change the tolerance to his medications. Despite any history the patient may have, I do believe his pain is legitimate and real. He has been started on a fentanyl patch today, and this will probably end up being inadequate, however I do not wish to go up on it too quickly. Reevaluate in the morning and having meds available every hour on an as-needed basis will allow us to 2 and his pain control. The patient is just now really allowing nurses to use the B&O suppositories that were recommended by urology, he is also on Ditropan. Pharmacy is researching for me to see if there is something better than Ditropan out there, I am unaware of anything better than Ditropan. As the patient has a great deal of anxiety tied together with the pain I will also try scheduling Ativan 1 mg 3 times a day hold for sedation. I believe that the anxiety may be exacerbating the pain and vice versa I also recognize the benzodiazepines are often used for muscle relaxation although, a literature suggests that this is all a central acting effect and not actually acting on the muscle. That being the case I am still hopeful it may decrease some of the bladder spasm or at least his perception thereof.
[2017-10-25] MEDS: *HR* OxyCODONE Immed Rel 5 MG TABLET PO PRN (17:40)
[2017-10-25] MEDS: *HR* LORazepam 1 MG TABLET PO SCH ×2 (17:41→20:12)
[2017-10-25] MEDS: Acetaminophen 325 MG TABLET PO PRN (20:13)
[2017-10-25] MEDS ORDERED: Haloperidol Lactate 5 MG/ML VIAL IVP PRN (23:25)
[2017-10-26] MEDS: *HR* Belladonna Alkaloids/Opium 60 MG RECTAL SUPPOSITORY RC SCH ×4 (05:09→23:46)
[2017-10-26] MEDS: Beclomethasone 40mcg MDI IH SCH ×2 (07:37→22:29)
[2017-10-26] MEDS: *HR* OxyCODONE Immed Rel 5 MG TABLET PO PRN ×2 (07:56→14:59)
--- NOTE | 2017-10-26 07:57 | Palliative Progress Note ---
<Dana Ruby - Last Filed: 10/26/17 08:44> Date of Encounter: 10/26/17 Time of Encounter: 07:55 - Assessment and plan (1) Goals of care, counseling/discussion Current Visit: Yes Status: Acute Assessment and plan: Current Code Status DNR-CCA/DNI. Pt has met with oncology and is pursuing radiation treatment currently for comfort. He does not want to pursue aggressive treatment at this time. Urology performed Transurethral section of bladder tumor 10/23 for biopsy, catheter currently in place with irrigation running. Pathology of biopsy is pending, urine cytology was negative. Pt wishes to go home with hospice care. He states that his pain is improved from yesterday. His sister states that he has been comfortable most of the night and he was sleeping when I entered the room. He is still slightly is diaphoretic. He states that his pain is all in his bladder. Pt currently receiving roxicodone 20mg Q1hr PRN, fentanyl patch 50mcg and ativan 1mg TID. He tolerated 1 doses of ativan yesterday. Fentanyl patch has been on since 1100 yesterday as well. He has only required one does of roxicodone 20 mg yesterday evening and just received on this morning. Given his history of abuse and pain we may need to increase his fentanyl patch, will continue to assess. (2) Mass of urinary bladder Current Visit: No Status: Acute Assessment and plan: Mass found on abdominal CT that urology feels is likely bladder cancer. Urine cytology negative. Biopsy Pathology for diagnosis is pending. He is pursuing radiation treatment for palliative measures, which will begin once diagnosis confirmed. (3) COPD (chronic obstructive pulmonary disease) Current Visit: Yes Status: Chronic Assessment and plan: Sister is concerned that he will develop PNA since he has not been getting up and moving, and also declined some of his inhaler therapies. Increased rhonchi on exam, no wheezing or respiratory distress. I advised her to have him utilize his IS that is at bedside hourly when awake. Qualifiers: COPD type: emphysema Emphysema type: panlobular Qualified Code(s): J43.1 - Panlobular emphysema (4) Tobacco abuse Current Visit: Yes Status: Chronic Assessment and plan: Pt desires to continue smoking. Continue nicotine patch. - Time Spent With Patient Total time spent is greater than 50% in coordination of care (as documented) at patient's floor/unit and/or counseling patient: - Subjective Interval history: Pt seen and examined, resting comfortably in bed asleep upon entering. Pt's sister states that he has been more comfortable overnight. When he began to wake up he was requesting pain medication stating that his bladder hurt. He states that his pain is much better this morning compared to yesterday. - Constitutional Vitals: Abnormal lab results WBC 27.5 K/mcL (4.3-11.1) H 10/24/17 09:02 RBC 3.74 M/mcL (4.19-5.50) L 10/24/17 09:02 Hgb 10.2 g/dL (12.9-16.9) L 10/24/17 09:02 Hct 33.6 % (37.5-50.1) L 10/24/17 09:02 MCH 27.3 pg (28.0-33.3) L 10/24/17 09:02 MCHC 30.4 g/dL (31.6-35.5) L 10/24/17 09:02 Neutrophils # 23.1 K/mcL (1.6-8.9) H 10/24/17 09:02 Monocytes # 3.3 K/mcL (0.0-1.3) H 10/24/17 09:02 Nucleated RBCs/100 WBC 0.2 /100 WBC (0) H 10/23/17 06:24 Reactive Lymphocytes Present (Not Present) A 10/21/17 04:54 PT 15.4 Seconds (9.4-12.1) H 10/22/17 09:36 Sodium 135 mEq/L (136-145) L 10/24/17 09:02 BUN 30 mg/dL (8-23) H 10/24/17 09:02 Creatinine 1.42 mg/dL (0.70-1.30) H 10/24/17 09:02 Est GFR (Non-Af Amer) 50 (> 60) L 10/24/17 09:02 Glucose 118 mg/dL (70-105) H 10/24/17 09:02 POC Glucose 118 (58-89) H 10/21/17 05:06 General appearance: Present: average body habitus, no acute distress - Head Head exam: Present: atraumatic, normal inspection, normocephalic - ENT ENT exam: Present: mucous membranes moist - Respiratory Respiratory exam: Present: rales, rhonchi. Absent: accessory muscle use, respiratory distress, wheezes, tachypnea - Cardiovascular Cardiovascular exam: Present: RRR - GI/Abdominal GI/Abdominal exam: Present: firm, guarding, normal bowel sounds, tenderness - Extremities Exam Extremities exam: Present: normal capillary refill. Absent: pedal edema - Neurological Exam Neurological exam: Present: alert - Psychiatric Psychiatric exam: Present: normal affect, normal mood - Skin Skin exam: Present: diaphoretic, intact, warm Palliative Quality Palliative Quality: Screen for Code Status: Yes, Screen for Goals of Care: Yes, Screen for Pain: Yes, If Pain Regimen Started, Initiate Bowel Regimen: Yes, Screen for Nausea/Vomitting: Yes Code Status: 10/20/17 08:45 Resuscitation Status: Active [RES] Routine Comment: Resuscitation Status: [id number] - Labs CBC & Chem 7: 10/24/17 09:02 10/24/17 09:02 - ABG Interpretation ABG results: PT/INR, D-dimer PT 15.4 Seconds (9.4-12.1) H 10/22/17 09:36 Consult Discharge Plan - Plan Referrals: Arturo Crabtree MD [Primary Care Provider] - <Oscar Chirinos - Last Filed: 10/26/17 09:16> Date of Encounter: 10/26/17 - Assessment and plan (1) Tobacco abuse Current Visit: Yes Status: Chronic (2) 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 Current Visit: Yes Status: Suspected (3) Bladder pain Current Visit: Yes Status: Acute (4) Goals of care, counseling/discussion Current Visit: Yes Status: Acute - Time Spent With Patient Total time spent is greater than 50% in coordination of care (as documented) at patient's floor/unit and/or counseling patient: - Constitutional Vitals: Abnormal lab results WBC 27.5 K/mcL (4.3-11.1) H 10/24/17 09:02 RBC 3.74 M/mcL (4.19-5.50) L 10/24/17 09:02 Hgb 10.2 g/dL (12.9-16.9) L 10/24/17 09:02 Hct 33.6 % (37.5-50.1) L 10/24/17 09:02 MCH 27.3 pg (28.0-33.3) L 10/24/17 09:02 MCHC 30.4 g/dL (31.6-35.5) L 10/24/17 09:02 Neutrophils # 23.1 K/mcL (1.6-8.9) H 10/24/17 09:02 Monocytes # 3.3 K/mcL (0.0-1.3) H 10/24/17 09:02 Nucleated RBCs/100 WBC 0.2 /100 WBC (0) H 10/23/17 06:24 Reactive Lymphocytes Present (Not Present) A 10/21/17 04:54 PT 15.4 Seconds (9.4-12.1) H 10/22/17 09:36 Sodium 135 mEq/L (136-145) L 10/24/17 09:02 BUN 30 mg/dL (8-23) H 10/24/17 09:02 Creatinine 1.42 mg/dL (0.70-1.30) H 10/24/17 09:02 Est GFR (Non-Af Amer) 50 (> 60) L 10/24/17 09:02 Glucose 118 mg/dL (70-105) H 10/24/17 09:02 POC Glucose 118 (58-89) H 10/21/17 05:06 - Attending Attestation I examined this patient and my medical decision-making was reviewed with the Resident Physician. I agree with the documented findings, disposition and treatment plan as described except to the extent set forth below. Palliative Quality Code Status: 10/20/17 08:45 Resuscitation Status: Active [RES] Routine Comment: Resuscitation Status: Full Code Resuscitation Status: Active [RES] Routine Comment: Resuscitation Status: [id number] - Labs CBC & Chem 7: 10/24/17 09:02 10/24/17 09:02 - ABG Interpretation ABG results: PT/INR, D-dimer PT 15.4 Seconds (9.4-12.1) H 10/22/17 09:36
[2017-10-26] MEDS: *HR* LORazepam 1 MG TABLET PO SCH ×3 (09:54→21:21)
[2017-10-26] MEDS: amLODIPine 5 MG TABLET PO SCH (09:54)
[2017-10-26] MEDS: Aspirin 81 MG TAB.CHEW PO SCH (09:54)
[2017-10-26] MEDS: Nicotine 21 MG PATCH.TD24 TD SCH (09:55)
--- NOTE | 2017-10-26 09:58 | Internal Med Progress Note ---
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 Still not interested in nephrostomy tubes. S/P transurethral section of bladder tumor , patholog is pending Plan is to begin palliative radiotherapy today 3/7 Continue Oxybutynin and levsin. Maintain adequate pain control;palliative care is following and has added fentanyl patch, atovan , oxycodone 20mg for pain Plan for discharge home with home hospice. 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 Plan as per above. (3) UTI (urinary tract infection) Current Visit: Yes Status: Resolved Assessment and plan: Urine culture no growth final. Still has leukocytosis. antibiotics discontinued. Qualifiers: Urinary tract infection type: site unspecified Hematuria presence: with hematuria Qualified Code(s): N39.0 - Urinary tract infection, site not specified; R31.9 - Hematuria, unspecified; R31.9 - Hematuria, unspecified (4) CKD (chronic kidney disease) stage 3, GFR 30-59 ml/min Current Visit: Yes Status: Chronic Assessment and plan: Cr baseline is between 1.7 to 2, at baseline at this time. (5) COPD (chronic obstructive pulmonary disease) Current Visit: Yes Status: Chronic Assessment and plan: Continue duonebs PRN. Continue home QVAR Qualifiers: COPD type: emphysema Emphysema type: panlobular Qualified Code(s): J43.1 - Panlobular emphysema (6) Carotid stenosis, bilateral Current Visit: Yes Status: Chronic Assessment and plan: Continue ASA and Plavix. (7) Coronary artery disease Current Visit: Yes Status: Chronic Assessment and plan: Continue home medications. Qualifiers: Coronary Disease-Associated Artery/Lesion type: [place] artery [place] vs. transplanted heart: [place] heart Associated angina: without angina Qualified Code(s): I25.10 - Atherosclerotic heart disease of [place] coronary artery without angina pectoris (8) Essential hypertension Current Visit: Yes Status: Chronic Assessment and plan: Continue home medications. (9) Mixed hyperlipidemia Current Visit: Yes Status: Chronic Assessment and plan: Continue home medications. (10) Tobacco abuse Current Visit: Yes Status: Chronic Assessment and plan: Counselled. Continue nicotine transdermal. (11) DVT prophylaxis Current Visit: Yes Status: Acute Assessment and plan: Continue SCDs. (12) Discharge planning issues Current Visit: Yes Status: Acute Assessment and plan: patient will be discharged on home hospice after receiving 5 days of radiation for his bladder CA. Starting today 10/26/17 - Subjective Interval history: Seen and examined at the bedside His pain is better controlled Reports from the RN shows patient is mostly sleeping and obtunded all day but begins to request pain meds as soon as he wakes up Some of his medications including the ativan had to be held overnight He is very sleepy during my evaluation but is protecting his airway and denies new complains Per Oncology report from 10/25, palliative radiotherapy may be started in-patient for 5 days starting from today 10/26 - Constitutional Vitals: Temp Pulse Resp BP Pulse Ox 98.5 F 75 20 121/75 90 10/26/17 06:38 10/26/17 06:38 10/26/17 07:37 10/26/17 06:38 10/26/17 07:37 General appearance: Present: answers questions appropriately Exam: Drowsy, but rousable - Head Head exam: Present: atraumatic, normocephalic - Eye Eye exam: Present: PERRL, conjuntiva pink, sclera anicteric Pupils: Present: PERRL - Neck Neck exam general surgery: Present: supple, trachea midline. Absent: lymphadenopathy - Respiratory Respiratory exam: Present: CTAB. Absent: accessory muscle use, rales, rhonchi, wheezes - Cardiovascular Cardiovascular exam: Present: RRR, +S1, +S2. Absent: diastolic murmur, gallop, rubs, systolic murmur - GI/Abdominal GI/Abdominal exam: Present: tenderness (suprapubic) - Extremities Exam Extremities exam: Present: warm, radial pulses palpable and symmetrical. Absent : calf tenderness, cyanotic, pedal edema - Neurological Exam Neurological exam: Present: CN II-XII intact, oriented X3, no focal deficits. Absent: pronater drift, facial droop, speech deficit - Skin Skin exam: Present: dry, intact Internal Medicine: Result - Labs CBC & Chem 7: 10/24/17 09:02 10/24/17 09:02 - ABG Interpretation ABG results: PT/INR, D-dimer PT 15.4 Seconds (9.4-12.1) H 10/22/17 09:36 - VTE Documentation of Mechanical Device: Intermittent pneumatic compression device Consult Discharge Plan - Plan Referrals: Arturo Crabtree MD [Primary Care Provider] -
--- NOTE | 2017-10-26 11:24 | Rad Onc Dictation ---
Radiation Oncology Dictation Date of Service: 10/26/17 - Oncology History Comments: 62-year-old male presents with a clinical stage IV bladder cancer with pelvic pain and urinary symptoms as well as intermittent bleeding in the urine - Progress Note Comments: Dr. Guillory in pathology indicates that this is a malignant tumor on TURBT specimen. She is awaiting immunostains. I will plan radiation treatment today.
[2017-10-26] MEDS ORDERED: Ipratropium/Albuterol Neb 3 ML IH PRN (13:48)
[2017-10-27] MEDS: *HR* OxyCODONE Immed Rel 5 MG TABLET PO PRN ×4 (02:05→21:46)
[2017-10-27] MEDS: *HR* Belladonna Alkaloids/Opium 60 MG RECTAL SUPPOSITORY RC SCH ×4 (05:22→23:40)
[2017-10-27] MEDS: Acetaminophen 325 MG TABLET PO PRN ×2 (08:02→23:40)
[2017-10-27] MEDS: Aspirin 81 MG TAB.CHEW PO SCH (08:03)
[2017-10-27] MEDS: *HR* LORazepam 1 MG TABLET PO SCH ×3 (08:03→21:40)
[2017-10-27] MEDS: Nicotine 21 MG PATCH.TD24 TD SCH (08:03)
[2017-10-27] MEDS: amLODIPine 5 MG TABLET PO SCH (08:03)
--- NOTE | 2017-10-27 09:24 | Palliative Progress Note ---
Date of Encounter: 10/27/17 Time of Encounter: 07:55 - Assessment and plan (1) Tobacco abuse Current Visit: Yes Status: Chronic Assessment and plan: On nicotine patch plan per hospitalist team Plan to continue this. 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 he is getting radiation currently. (3) Bladder pain Current Visit: Yes Status: Acute Assessment and plan: Patient's pain seems to be under good control at this time with his patch and his oxycodone. Although he does seem to be somewhat more sedated is still waking up and asking for urine medications I therefore do not believe that the fentanyl patches completely taking care of his pain and therefore I will absolutely does not need to be increased I am reluctant to decrease it. Would not be the least bit unreasonable to try a lower dose. However I do not believe given his past history of use in the extensive nature of his cancer that 50 mics is really too much. Could consider backing off to 25 g but I suspect that he will then be awake much more complaining bitterly of pain and has been described to me writhing in pain. Patient's last discussion with me regarding goals of care was to be comfortable enough to be at home and smoking. I will make no changes to the meds today, I would certainly advocate considering it if the patient stops using when necessaries altogether. (4) Goals of care, counseling/discussion Current Visit: Yes Status: Acute Assessment and plan: Agent DNR CCA DNI. As for the patient to continue getting his radiation treatment as soon as that is done he will go home with hospice. - Time Spent With Patient Total time spent is greater than 50% in coordination of care (as documented) at patient's floor/unit and/or counseling patient: - Subjective Interval history: Patient is currently sleeping in doing so rather soundly. But does awaken easily. Told by the nursing staff that he has been sleeping a lot more. I did discuss yesterday with the hospitalist team about his somnolence, I was concerned that perhaps his patch might be a bit much, however whenever he wakes up he is complaining bitterly of pain according to the nursing staff. See the assessment and plan at this time the patient states his medications are adequate. He drifts Back off to sleep as well. - Constitutional Vitals: Abnormal lab results WBC 27.5 K/mcL (4.3-11.1) H 10/24/17 09:02 RBC 3.74 M/mcL (4.19-5.50) L 10/24/17 09:02 Hgb 10.2 g/dL (12.9-16.9) L 10/24/17 09:02 Hct 33.6 % (37.5-50.1) L 10/24/17 09:02 MCH 27.3 pg (28.0-33.3) L 10/24/17 09:02 MCHC 30.4 g/dL (31.6-35.5) L 10/24/17 09:02 Neutrophils # 23.1 K/mcL (1.6-8.9) H 10/24/17 09:02 Monocytes # 3.3 K/mcL (0.0-1.3) H 10/24/17 09:02 Nucleated RBCs/100 WBC 0.2 /100 WBC (0) H 10/23/17 06:24 Reactive Lymphocytes Present (Not Present) A 10/21/17 04:54 PT 15.4 Seconds (9.4-12.1) H 10/22/17 09:36 Sodium 135 mEq/L (136-145) L 10/24/17 09:02 BUN 30 mg/dL (8-23) H 10/24/17 09:02 Creatinine 1.42 mg/dL (0.70-1.30) H 10/24/17 09:02 Est GFR (Non-Af Amer) 50 (> 60) L 10/24/17 09:02 Glucose 118 mg/dL (70-105) H 10/24/17 09:02 POC Glucose 118 (58-89) H 10/21/17 05:06 General appearance: Present: no acute distress - Respiratory Respiratory exam: Present: decreased breath sounds - Cardiovascular Cardiovascular exam: Present: RRR - GI/Abdominal GI/Abdominal exam: Present: normal bowel sounds, soft. Absent: tenderness - Extremities Exam Extremities exam: Present: pedal edema (A little) - Neurological Exam Neurological exam: Present: alert (He awakens easily and does answer questions but then goes right back to sleep) - Psychiatric Psychiatric exam: Absent: agitated, anxious - Skin Skin exam: Present: dry, warm Palliative Quality Palliative Quality: Screen for Code Status: Yes, Screen for Goals of Care: Yes, Screen for Pain: Yes, If Pain Regimen Started, Initiate Bowel Regimen: Yes, Screen for Nausea/Vomitting: Yes Code Status: 10/20/17 08:45 Resuscitation Status: Active [RES] Routine Comment: Resuscitation Status: Full Code Resuscitation Status: Active [RES] Routine Comment: Resuscitation Status: [id number] - Labs CBC & Chem 7: 10/24/17 09:02 10/24/17 09:02 - ABG Interpretation ABG results: PT/INR, D-dimer PT 15.4 Seconds (9.4-12.1) H 10/22/17 09:36 Consult Discharge Plan - Plan Referrals: Arturo Crabtree MD [Primary Care Provider] -
[2017-10-27] MEDS: Beclomethasone 40mcg MDI IH SCH ×2 (10:42→20:27)
--- NOTE | 2017-10-27 11:52 | Internal Med Progress Note ---
Date of Encounter: 10/27/17 Time of Encounter: 11:51 - Assessment and plan (1) Sepsis Current Visit: Yes Status: Acute Assessment and plan: Patient developed fever, 100.9, no tachycardia He however has leukocytosis, WBC 32.4 with left shift CXR shows possible PNA Started on levaquin and Zosyn, renally dosed -day 1 Given IVF bolus X1, continue to monitor Follow blood culture, sent 10/27 Qualifiers: Sepsis type: sepsis due to unspecified organism Qualified Code(s): A41.9 - Sepsis, unspecified organism (2) Pneumonia Current Visit: Yes Status: Acute Assessment and plan: continue antibitics, as in sepsis above, has KHADAR on CKD, no indication for Vanco at this time, Qualifiers: Pneumonia type: due to unspecified organism Laterality: bilateral Lung location: unspecified part of lung Qualified Code(s): J18.9 - Pneumonia, unspecified organism (3) Hydronephrosis due to obstructive malignant bladder cancer Current Visit: Yes Status: Acute Assessment and plan: Urology and oncology consulted; appreciate input. Still not interested in nephrostomy tubes. S/P transurethral section of bladder tumor , patholog is pending Started palliative radiotherapy 10/26 Continue Oxybutynin and levsin. 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 Plan as per above. (5) UTI (urinary tract infection) Current Visit: Yes Status: Resolved Assessment and plan: Resolved, UA today unremarkable Qualifiers: Urinary tract infection type: site unspecified Hematuria presence: with hematuria Qualified Code(s): N39.0 - Urinary tract infection, site not specified; R31.9 - Hematuria, unspecified; R31.9 - Hematuria, unspecified (6) CKD (chronic kidney disease) stage 3, GFR 30-59 ml/min Current Visit: Yes Status: Chronic Assessment and plan: Cr baseline is between 1.7 to 2, increased today to 2.35, given 1L bolus avid nephrotoxins, continue to monitor (7) COPD (chronic obstructive pulmonary disease) Current Visit: Yes Status: Chronic Assessment and plan: Continue duonebs PRN. Continue home QVAR Qualifiers: COPD type: emphysema Emphysema type: panlobular Qualified Code(s): J43.1 - Panlobular emphysema (8) Carotid stenosis, bilateral Current Visit: Yes Status: Chronic Assessment and plan: Continue ASA and Plavix. (9) Coronary artery disease Current Visit: Yes Status: Chronic Assessment and plan: Continue home medications. Qualifiers: Coronary Disease-Associated Artery/Lesion type: [place] artery [place] vs. transplanted heart: [place] heart Associated angina: without angina Qualified Code(s): I25.10 - Atherosclerotic heart disease of [place] coronary artery without angina pectoris (10) Essential hypertension Current Visit: Yes Status: Chronic Assessment and plan: Continue home medications. (11) Mixed hyperlipidemia Current Visit: Yes Status: Chronic Assessment and plan: Continue home medications. (12) Tobacco abuse Current Visit: Yes Status: Chronic Assessment and plan: Counselled. Continue nicotine transdermal. (13) DVT prophylaxis Current Visit: Yes Status: Acute Assessment and plan: Continue SCDs. (14) Discharge planning issues Current Visit: Yes Status: Acute Assessment and plan: patient will be discharged on home hospice after receiving 5 days of radiation for his bladder CA. Started 10/26/17 (15) Acute on chronic renal failure Current Visit: Yes Status: Acute Assessment and plan: as in CKD Qualifiers: Acute renal failure type: unspecified Chronic kidney disease stage: stage 3 (moderate) Qualified Code(s): N17.9 - Acute kidney failure, unspecified; N18.3 - Chronic kidney disease, stage 3 (moderate); N18.3 - Chronic kidney disease, stage 3 (moderate) - Subjective Interval history: Seen and examined at the bedside His pain is better controlled Started on radiotherapy 10/26, second session done today Patient is seen after returning from radiotherapy He is more obtunded than he was yesterday, he also has rhonchi on exam and also had a fever, 100.9 at 739 am today We will do a sepsis work up he is awake, alert and weak but able to converse and express his needs for something to drink. He is not in respiratory or painful distress I asked if he was depressed as he stared blankly and he said "No, Im fine" - Constitutional Vitals: Temp Pulse Resp BP Pulse Ox 98.4 F 67 18 104/68 96 10/27/17 11:25 10/27/17 11:25 10/27/17 11:25 10/27/17 11:25 10/27/17 11:25 General appearance: Present: A&O X 3, pleasant, answers questions appropriately - Head Head exam: Present: atraumatic, normocephalic - Eye Eye exam: Present: PERRL, conjuntiva pink, sclera anicteric Pupils: Present: PERRL - Neck Neck exam general surgery: Present: supple, trachea midline. Absent: lymphadenopathy - Respiratory Respiratory exam: Present: rhonchi - Cardiovascular Cardiovascular exam: Present: RRR, +S1, +S2. Absent: diastolic murmur, gallop, rubs, systolic murmur - GI/Abdominal GI/Abdominal exam: Present: normal bowel sounds, soft, tenderness (suprapubic), no peritoneal signs. Absent: distended - Extremities Exam Extremities exam: Present: warm, radial pulses palpable and symmetrical. Absent : calf tenderness, cyanotic, pedal edema - Neurological Exam Neurological exam: Present: alert, CN II-XII intact, oriented X3, no focal deficits. Absent: pronater drift, facial droop, speech deficit - Skin Skin exam: Present: dry, intact Internal Medicine: Result - Labs CBC & Chem 7: 10/27/17 12:42 10/27/17 12:42 - ABG Interpretation ABG results: PT/INR, D-dimer PT 15.4 Seconds (9.4-12.1) H 10/22/17 09:36 - VTE Documentation of Mechanical Device: Intermittent pneumatic compression device Consult Discharge Plan - Plan Referrals: Arturo Crabtree MD [Primary Care Provider] -
[2017-10-27 13:16] LABS: Bilirubin,Urine Negative (Negative); Blood,Urine Large (Negative); Clarity,Urine Cloudy (Clear); Color,Urine Dark Yellow (Yellow); Glucose,Urine (UA) Normal (Normal); Ketones,Urine Negative (Negative); Leukocyte Esterase,Urine Trace (Negative); Nitrite,Urine Negative (Negative); PH,Urine 5.5 pH Units (5.0-8.0); Protein,Urine 100 mg/dL (Neg-Trace); Specific Gravity,Urine 1.019 (1.010-1.025); Urobilinogen,Urine Normal (Normal)
[2017-10-27 13:16] LABS: Basophils # 0.1 K/mcL (0.0-0.2); Basophils % 0.2 %; Eosinophils # 3.3 K/mcL (0.0-0.6); Eosinophils % 10.2 %; Hematocrit 29.3 % (37.5-50.1); Hemoglobin 8.9 g/dL (12.9-16.9); Immature Granulocytes % 1.9 % (0-4); Lymphocytes # 0.8 K/mcL (0.6-4.6); Lymphocytes % 2.6 %; Mean Corpuscular HGB Conc 30.4 g/dL (31.6-35.5); Mean Corpuscular Hemoglobin 27.4 pg (28.0-33.3); Mean Corpuscular Volume 90.2 fL (83.0-100.0); Mean Platelet Volume 10.1 fL (9.4-12.4); Monocytes # 3.4 K/mcL (0.0-1.3); Monocytes % 10.6 %; Neutrophils # 24.1 K/mcL (1.6-8.9); Platelet Count 225 K/mcL (140-400); Red Blood Count 3.25 M/mcL (4.19-5.50); Segmented Neutrophils % 74.5 %
[2017-10-27 13:17] LABS: Bacteria,Urine None Seen per hpf (None-Few); Hyaline Casts,Urine None Seen per lpf (None-Few); RBC,Urine 50-100 per hpf (0-3); Squamous Epithelial Cell,Urine Many per lpf (None-Few); WBC,Urine 15-30 per hpf (0-3)
[2017-10-27 13:20] LABS: Platelet Estimate Normal (Normal)
[2017-10-27 13:58] LABS: Calcium 8.6 mg/dL (8.6-10.3); Potassium 5.2 mEq/L (3.5-5.1)
--- NOTE | 2017-10-27 13:58 | Oncology Inp Progress Note ---
Date of Encounter: 10/27/17 Time of Encounter: 12:00 (1) Mass of urinary bladder Current Visit: No Status: Acute Assessment and plan: Mr. Hartley is S/P transurethral section of bladder tumor with Dr. Ocampo on . He continues to decline right nephrostomy placement. Per Damaris's report, there is concern for high grade bladder carcinoma, awaiting final TURBT specimen pathology report. Urine cytology negative. Dr. Guillory in pathology indicated to Dr. Tom with radiation oncology that this is a malignant tumor on TURBT specimen, she is awaiting immunostains. Given this information, Mr. Hartley started palliative pelvic radiation treatment yesterday on 10/26. He is planned and approved to receive a total of 5 radiotherapy treatments. Following his completion of 5 radiotherapy treatments, he is planned to go home with hospice. Mr. Hartley has had a complicated stay due to urinary retention requiring TURBT and bladder irrigation along with difficulties in adequate pain control. Due to history of reported abuse of prescription medications and his extent of malignancy, he has needed multiple dosage adjustments. He also has a complex social circumstance, with patient and patients family living [place] away, [place] with difficult access to hospital, making his ability to easily follow up for radiation or access to care quite difficult. Mr. Hartley appears to be comfortable and without pain presently. Other staff including myself have noticed a decline in patients mental and physical status over the past 24 hours. Family have noted this as well and stayed at patients bedside over night. Discussed with nursing staff that if patients continues to decline to the point that he would not be able to safely be transported or receive radiation, to please let myself or radiation staff know. Oncology: Subj Interval history: Mr. Hartley is resting comfortably in bed. He reports pain but states he is at a comfortable level of pain and that pain medication is effective. No family at bedside at this time, nursing staff state family stayed all night and have gone out for lunch. He is lethargic but arouses to voice. - Constitutional Vitals: Vital Signs Temp Pulse Resp BP Pulse Ox 10/27/17 11:25 98.4 F 67 18 104/68 96 10/27/17 07:39 100.9 F H 74 18 106/61 93 10/27/17 04:15 98.9 F 89 18 109/66 94 10/26/17 22:29 18 95 10/26/17 19:28 99.7 F H 89 18 100/68 95 Intake and Output 10/26/17 10/27/17 10/27/17 23:59 07:59 15:59 Intake Total 80 / 80 220 / 220 0 / 0 Output Total 1300 / 1300 0 / 0 Balance -1220 / -1220 220 / 220 0 / 0 Intake: Oral 80 / 80 220 / 220 0 / 0 Output: Urine 1300 / 1300 Catheter 0 / 0 Other: Intake, CBI Fluid 3,000 Meal Breakfast Percent of Meal Consumed 0% Output, CBI Fluid 4,300 Weight 82.1 kg Patient Weight 10/27/17 23:59 Weight 82.1 kg General appearance: cooperative, no acute distress, no febrile - Head Head exam: Present: atraumatic - ENT ENT exam: Present: mucous membranes moist - Respiratory Respiratory exam: Present: CTAB. Absent: decreased breath sounds - Cardiovascular Cardiovascular exam: Present: RRR, +S1, +S2 - GI/Abdominal GI/Abdominal exam: Present: normal bowel sounds, soft, tenderness - Additional comments: snyder cath with dark yellow urine - Extremities Exam Extremities exam: Present: normal inspection. Absent: calf tenderness - Neurological Exam Neurological exam: Present: alert, oriented X3, no focal deficits, strengths equal and symetr throughout Additional comments: muscle weakness bilaterally - Psychiatric Psychiatric exam: Present: flat affect - Skin Skin exam: Present: normal color, warm Oncology: Obj Data - Labs CBC & Chem 7: 10/27/17 12:42 10/27/17 12:42 Labs: Laboratory Results - last 24 hr 10/27/17 10/27/17 12:20 12:42 WBC 32.4 H* RBC 3.25 L Hgb 8.9 L Hct 29.3 L MCV 90.2 MCH 27.4 L MCHC 30.4 L RDW 14.0 Plt Count 225 MPV 10.1 Immature Gran % 1.9 Seg Neutrophils % 74.5 Lymphocytes % 2.6 Monocytes % 10.6 Eosinophils % 10.2 Basophils % 0.2 Neutrophils # 24.1 H Lymphocytes # 0.8 Monocytes # 3.4 H Eosinophils # 3.3 H Basophils # 0.1 Platelet Estimate Normal Urine Color Dark Yellow Urine Clarity Cloudy A Urine pH 5.5 Ur Specific [place] 1.019 Urine Protein 100 H Urine Glucose (UA) Normal Urine Ketones Negative Urine Blood Large H Urine Nitrite Negative Urine Bilirubin Negative Urine Urobilinogen Normal Ur Leukocyte Esterase Trace H Urine Microscopic RBC 50-100 H Urine Microscopic WBC 15-30 H Ur Squamous Epith Cells Many H Urine Bacteria None Seen Hyaline Casts None Seen Ur Culture Indicated? NO. - Impressions Impressions Chest X-Ray 10/27/17 11:50 IMPRESSION: New bibasilar opacities worse on the right, potentially atelectasis, pneumonia, and/or aspiration. D/ / Apollo House MD / Apollo House MD Interpreting Provider: Apollo House MD - ABG Interpretation ABG results: PT/INR, D-dimer PT 15.4 Seconds (9.4-12.1) H 10/22/17 09:36 Consult Discharge Plan - Plan Referrals: Arturo Crabtree MD [Primary Care Provider] -
[2017-10-27] MEDS ORDERED: Levofloxacin 750 MG/150 ML 750 MG/150 ML BAG IVPB SCH (14:00)
[2017-10-27] MEDS ORDERED: 0.9 % Sodium Chloride 1,000 ML IVC ONE (14:01)
[2017-10-27] MEDS: Piperacillin/Tazobactam 3.375 GM in 0.9 % Sodium Chloride Mini Bag 100 ML IVPB SCH ×2 (14:18→22:04)
[2017-10-28 06:17] LABS: Basophils % 0.2 %; Hemoglobin 8.6 g/dL (12.9-16.9); Immature Granulocytes % 3.8 % (0-4); Red Cell Distribution Width 14.1 % (11.5-14.5)
[2017-10-28 06:18] LABS: Basophils # 0.1 K/mcL (0.0-0.2); Eosinophils % 9.1 %; Lymphocytes # 0.9 K/mcL (0.6-4.6); Lymphocytes % 2.6 %; Mean Corpuscular HGB Conc 28.7 g/dL (31.6-35.5); Mean Corpuscular Volume 94.3 fL (83.0-100.0); Mean Platelet Volume 10.1 fL (9.4-12.4); Monocytes # 3.3 K/mcL (0.0-1.3); Monocytes % 9.9 %; Neutrophils # 24.4 K/mcL (1.6-8.9); Nucleated Red Blood Cells 0.1 /100 WBC (0); Platelet Count 213 K/mcL (140-400); Red Blood Count 3.18 M/mcL (4.19-5.50); Segmented Neutrophils % 74.4 %
[2017-10-28] MEDS: *HR* Belladonna Alkaloids/Opium 60 MG RECTAL SUPPOSITORY RC SCH ×2 (06:22→12:16)
[2017-10-28] MEDS: Piperacillin/Tazobactam 3.375 GM in 0.9 % Sodium Chloride Mini Bag 100 ML IVPB SCH (06:22)
[2017-10-28 06:27] VITALS: BP 98/60
[2017-10-28 06:27] LABS: Calcium 8.1 mg/dL (8.6-10.3); Potassium 5.4 mEq/L (3.5-5.1)
[2017-10-28 06:47] LABS: Toxic Granulation Present (Not Present)
[2017-10-28 06:48] LABS: Platelet Estimate Normal (Normal)
[2017-10-28] MEDS: Beclomethasone 40mcg MDI IH SCH (08:00)
[2017-10-28] MEDS ORDERED: Haloperidol Lactate 5 MG/ML VIAL IVP PRN (10:11)
--- NOTE | 2017-10-28 10:17 | Palliative Progress Note ---
Date of Encounter: 10/28/17 Time of Encounter: 09:30 - Assessment and plan (1) Goals of care, counseling/discussion Current Visit: Yes Status: Acute Assessment and plan: Mr. Hartley is S/P transurethral section of bladder tumor with Dr. Ocampo on . He had declined a right nephrostomy tube placement. Mr. Hartley has completed 2/5 palliative pelvic radiation treatments. He is planned and approved to receive a total of 5 radiotherapy treatments. Following his completion of 5 radiotherapy treatments, he is planned to go home with hospice. Patient has now developed pneumonia with WBC elevation. Conducted 45 min bedside discussion with MAGDALENO Pastor, patient's brother and sister Trupti. Reviewed patients plan of care and explained pneumonia, elevated WBC and antibiotic therapy. Dawit clear on patients desires for comfort and hospice care. Explained current code status of DNRCC - A, DNI and explained transition to comfort care status of DNRCC - Comfort Care. Dawit and all agree to stop antibiotics, cholesterol meds, ASA and focus on comfort care. Explained transition to comfort care and Dawit desires to stop radiation treatments as well. Patient will be evaluated by [facility] for possible transition to inpatient hospice. Called made to [facility] and plan for them to come out and evaluate for [facility] hospice care. Saleem Medrano notified of patients transition to comfort care. Meds adjusted and code status DNRCC - Comfort care. Terminal diagnosis Bladder Cancer. (2) Bladder pain Current Visit: Yes Status: Acute Assessment and plan: Patient with bladder cancer. Fentanyl patch on and requested 80 mg of Oxycodone for BTP. Awakens to name and states pain to abdomen but falls back to sleep and reports that it is bearable at this time. Patient transition to comfort care and is now DNRCC - Comfort care. Will monitor pain closely and adjust as needed. (3) Tobacco abuse Current Visit: Yes Status: Chronic Assessment and plan: Patient 3 pack/day smoker. Nicotine patch on. Increase Ativan dose to QID. 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 Belladonna Opium for spasms. Continue as needed. Patient now desires to stop palliative radiation. Transition to comfort care. (5) Hydronephrosis due to obstructive malignant bladder cancer Current Visit: Yes Status: Acute Assessment and plan: Patient has refused nephrostomy tube placement. - Time Spent With Patient Total time spent is greater than 50% in coordination of care (as documented) at patient's floor/unit and/or counseling patient: Greater than 35 minutes - Subjective Interval history: Patient sleepy, opens eyes to name. Sweaty and warm. Family at bedside. Assessment complete. Family discussion held at bedside. - Constitutional Vitals: Abnormal lab results WBC 32.8 K/mcL (4.3-11.1) H* 10/28/17 05:41 RBC 3.18 M/mcL (4.19-5.50) L 10/28/17 05:41 Hgb 8.6 g/dL (12.9-16.9) L 10/28/17 05:41 Hct 30.0 % (37.5-50.1) L 10/28/17 05:41 MCH 27.0 pg (28.0-33.3) L 10/28/17 05:41 MCHC 28.7 g/dL (31.6-35.5) L 10/28/17 05:41 Neutrophils # 24.4 K/mcL (1.6-8.9) H 10/28/17 05:41 Monocytes # 3.3 K/mcL (0.0-1.3) H 10/28/17 05:41 Eosinophils # 3.0 K/mcL (0.0-0.6) H 10/28/17 05:41 Nucleated RBCs/100 WBC 0.1 /100 WBC (0) H 10/28/17 05:41 Reactive Lymphocytes Present (Not Present) A 10/21/17 04:54 Toxic Granulation Present (Not Present) A 10/28/17 05:41 PT 15.4 Seconds (9.4-12.1) H 10/22/17 09:36 Sodium 131 mEq/L (136-145) L 10/28/17 05:41 Potassium 5.4 mEq/L (3.5-5.1) H 10/28/17 05:41 Carbon Dioxide 22 mEq/L (23-29) L 10/28/17 05:41 BUN 58 mg/dL (8-23) H 10/28/17 05:41 Creatinine 2.46 mg/dL (0.70-1.30) H 10/28/17 05:41 Est GFR ( Amer) 32 (> 60) L 10/28/17 05:41 Est GFR (Non-Af Amer) 27 (> 60) L 10/28/17 05:41 POC Glucose 118 (58-89) H 10/21/17 05:06 Calcium 8.1 mg/dL (8.6-10.3) L 10/28/17 05:41 Urine Clarity Cloudy (Clear) A 10/27/17 12:20 Urine Protein 100 mg/dL (Neg-Trace) H 10/27/17 12:20 Urine Blood Large (Negative) H 10/27/17 12:20 Ur Leukocyte Esterase Trace (Negative) H 10/27/17 12:20 Urine Microscopic RBC 50-100 per hpf (0-3) H 10/27/17 12:20 Urine Microscopic WBC 15-30 per hpf (0-3) H 10/27/17 12:20 Ur Squamous Epith Cells Many per lpf (None-Few) H 10/27/17 12:20 - Head Head exam: Present: atraumatic, normal inspection - Eye Eye exam: Present: PERRL Pupils: Present: PERRL - ENT ENT exam: Present: mucous membranes moist - Neck Neck exam: Present: full ROM - Respiratory Respiratory exam: Present: decreased breath sounds, rhonchi - Expanded Respiratory Exam Location: decreased breath sounds: Left, Right, Lower, rhonchi: Left, Right, Upper - Cardiovascular Cardiovascular exam: Present: RRR, +S1, +S2 - Expanded Cardiovascular Exam Peripheral pulses: 1+: Femoral (L) PM, Femoral (R) PM, Posterior Tibialis (L), Posterior Tibialis (R), 2+: Carotid (L) PM, Carotid (R) PM, Radial (L), Radial ( R), Dorsalis Pedis (L) PM, Dorsalis Pedis (R) PM - GI/Abdominal GI/Abdominal exam: Present: hypoactive bowel sounds, tenderness Additional comments: Garrison with scant clear yellow urine. - Rectal Rectal exam: Present: deferred - exam: Present: normal inspection - Extremities Exam Extremities exam: Present: tenderness - Neurological Exam Neurological exam: Present: altered - Psychiatric Psychiatric exam: Present: flat affect - Skin Skin exam: Present: pallor, warm Palliative Quality Palliative Quality: Screen for Code Status: Yes, Screen for Goals of Care: Yes, Screen for Pain: Yes, If Pain Regimen Started, Initiate Bowel Regimen: Yes, Screen for Nausea/Vomitting: Yes Code Status: 10/20/17 08:45 Resuscitation Status: Active [RES] Routine Comment: Resuscitation Status: [id number] Resuscitation Status: Active [RES] Routine Comment: Resuscitation Status: Full Code 10/28/17 10:08 DNR [Resuscitation Status: Active] [RES] Routine Resuscitation Status: DNR-Comfort Care Comment: - Labs CBC & Chem 7: 10/28/17 05:41 10/28/17 05:41 Labs: Laboratory Results - last 24 hr 10/27/17 10/27/17 10/27/17 12:20 12:42 12:42 WBC 32.4 H* RBC 3.25 L Hgb 8.9 L Hct 29.3 L MCV 90.2 MCH 27.4 L MCHC 30.4 L RDW 14.0 Plt Count 225 MPV 10.1 Immature Gran % 1.9 Seg Neutrophils % 74.5 Lymphocytes % 2.6 Monocytes % 10.6 Eosinophils % 10.2 Basophils % 0.2 Neutrophils # 24.1 H Lymphocytes # 0.8 Monocytes # 3.4 H Eosinophils # 3.3 H Basophils # 0.1 Nucleated RBCs/100 WBC Toxic Granulation Platelet Estimate Normal Sodium 133 L Potassium 5.2 H Chloride 99 Carbon Dioxide 25 BUN 55 H Creatinine 2.35 H Est GFR ( Amer) 34 L Est GFR (Non-Af Amer) 28 L BUN/Creatinine Ratio 23 Glucose 103 Calculated Osmolality 291 Calcium 8.6 Urine Color Dark Yellow Urine Clarity Cloudy A Urine pH 5.5 Ur Specific [place] 1.019 Urine Protein 100 H Urine Glucose (UA) Normal Urine Ketones Negative Urine Blood Large H Urine Nitrite Negative Urine Bilirubin Negative Urine Urobilinogen Normal Ur Leukocyte Esterase Trace H Urine Microscopic RBC 50-100 H Urine Microscopic WBC 15-30 H Ur Squamous Epith Cells Many H Urine Bacteria None Seen Hyaline Casts None Seen Ur Culture Indicated? NO. 10/28/17 10/28/17 05:41 05:41 WBC 32.8 H* RBC 3.18 L Hgb 8.6 L Hct 30.0 L MCV 94.3 MCH 27.0 L MCHC 28.7 L RDW 14.1 Plt Count 213 MPV 10.1 Immature Gran % 3.8 Seg Neutrophils % 74.4 Lymphocytes % 2.6 Monocytes % 9.9 Eosinophils % 9.1 Basophils % 0.2 Neutrophils # 24.4 H Lymphocytes # 0.9 Monocytes # 3.3 H Eosinophils # 3.0 H Basophils # 0.1 Nucleated RBCs/100 WBC 0.1 H Toxic Granulation Present A Platelet Estimate Normal Sodium 131 L Potassium 5.4 H Chloride 102 Carbon Dioxide 22 L BUN 58 H Creatinine 2.46 H Est GFR ( Amer) 32 L Est GFR (Non-Af Amer) 27 L BUN/Creatinine Ratio 24 Glucose 105 Calculated Osmolality 289 Calcium 8.1 L Urine Color Urine Clarity Urine pH Ur Specific [place] Urine Protein Urine Glucose (UA) Urine Ketones Urine Blood Urine Nitrite Urine Bilirubin Urine Urobilinogen Ur Leukocyte Esterase Urine Microscopic RBC Urine Microscopic WBC Ur Squamous Epith Cells Urine Bacteria Hyaline Casts Ur Culture Indicated? - Impressions Impressions Chest X-Ray 10/27/17 11:50 IMPRESSION: New bibasilar opacities worse on the right, potentially atelectasis, pneumonia, and/or aspiration. D/ / Apollo House MD / Apollo House MD Interpreting Provider: Apollo House MD - ABG Interpretation ABG results: PT/INR, D-dimer PT 15.4 Seconds (9.4-12.1) H 10/22/17 09:36 Consult Discharge Plan - Plan Referrals: Arturo Crabtree MD [Primary Care Provider] -
[2017-10-28] MEDS: Nicotine 21 MG PATCH.TD24 TD SCH (11:01)
[2017-10-28] MEDS: *HR* FentaNYL PATCH 50 MCG PATCH TD SCH (11:01)
[2017-10-28] MEDS: *HR* OxyCODONE Immed Rel 5 MG TABLET PO PRN (11:02)
--- NOTE | 2017-10-28 11:26 | Oncology Inp Progress Note ---
Date of Encounter: 10/28/17 Time of Encounter: 10:15 (1) Mass of urinary bladder Current Visit: No Status: Acute Assessment and plan: Mr. Hartley is S/P TURBT with Dr. Ocampo on 10/23/17. Urine cytology negative. TURBT pathology confirms high grade carcinoma with IHC stains suggestive but not diagnostic of high grade urothelial carcinoma. Mr. Hartley has received 2 of the 5 planned pelvic radiotherapy sessions. However, over the past 24 hours he has clinically declined and has now developed pneumonia with fever and leukocytosis. Following discussion with palliative care today with patients family at bedside , the decision was made to transition patient to comfort care measures only. He is being evaluated for [facility]. All family are in agreement to discontinue palliative radiation treatments at this time. Appreciate assistance of palliative team in this transition of care to comfort measures. Verbal support given to family members. Family are appreciative of the care provided by staff and awaiting further information on plans for potential [facility] Hosp[facility] admission. Oncology will sign off at this time, please do not hesitate to contact for any further questions or concerns. Oncology: Subj Interval history: Patient resting in bed, he is diaphoretic and warm. Resting with eyes closed, he will occasionally cry out stating he has to urinate and then quickly fall back to sleep. He appears comfortable. He will minimally respond to voice at times, states he feels "lousy". Patients sister and brother in law are at bedside. They have called in family members from multiple states which will be arriving over the next few days. - Constitutional Vitals: Vital Signs Temp Pulse Resp BP Pulse Ox 10/28/17 08:01 18 94 10/28/17 06:26 97.6 F 72 18 98/60 94 10/28/17 03:53 99.0 F 79 18 109/69 89 10/28/17 01:21 100.2 F H 10/27/17 23:34 102.3 F H 82 17 93/60 89 10/27/17 19:50 98.4 F 78 17 103/64 91 10/27/17 15:04 97.8 F 82 18 92/60 94 Intake and Output 10/27/17 10/28/17 10/28/17 23:59 07:59 15:59 Intake Total 100 / 100 100 / 100 Output Total 0 / 0 300 / 300 Balance 100 / 100 -200 / -200 Intake: IV Fluids 100 / 100 100 / 100 Zosyn 3.375 GM In 0.9 % Sodium 100 / 100 100 / 100 Chloride (Mini-Bag +) 100 ML @ 25 mls/hr IVPB Q8H [facility] Rx#: [id number] Oral 0 / 0 0 / 0 Output: Urine 0 / 0 Catheter 300 / 300 Other: Weight 82.4 kg Patient Weight 10/28/17 23:59 Weight 82.4 kg General appearance: febrile, no acute distress - Head Head exam: Present: atraumatic - ENT ENT exam: Present: mucous membranes dry - Respiratory Respiratory exam: Present: rhonchi, wheezes - Cardiovascular Cardiovascular exam: Present: RRR, +S1, +S2 - GI/Abdominal GI/Abdominal exam: Present: normal bowel sounds, soft, tenderness - Additional comments: snyder cath with dark yellow urine - Extremities Exam Extremities exam: Present: normal inspection. Absent: calf tenderness - Neurological Exam Neurological exam: Present: altered - Psychiatric Psychiatric exam: Present: flat affect. Absent: agitated - Skin Skin exam: Present: diaphoretic, pallor, warm Oncology: Obj Data - Labs CBC & Chem 7: 10/28/17 05:41 10/28/17 05:41 - Impressions Impressions Chest X-Ray 10/27/17 11:50 IMPRESSION: New bibasilar opacities worse on the right, potentially atelectasis, pneumonia, and/or aspiration. D/ / Apollo House MD / Apollo House MD Interpreting Provider: Apollo House MD - ABG Interpretation ABG results: PT/INR, D-dimer PT 15.4 Seconds (9.4-12.1) H 10/22/17 09:36 Consult Discharge Plan - Plan Referrals: Arturo Crabtree MD [Primary Care Provider] -
[2017-10-28] MEDS ORDERED: *HR* LORazepam Oral Conc 2 MG/ML SL SCH (12:00)
--- NOTE | 2017-10-28 13:36 | Discharge Summary ---
- NOTES TO OUTPATIENT PROVIDER Notes to Outpatient Provider: Nothing to follow as an outpatient. 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 Hartley is a 62 year old male with a past medical history of advanced metastatic bladder carcinoma who was admitted with rapid decline cognitively. He has recently started radiotherapy on October 26 and then he subsequently developed sepsis with pneumonia. He had a very complicated course to a point that palliative medicine and hospice were consulted and the patient's family decided to make him DNR comfort care. He has been transitioned to inpatient hospice with the plan to make him completely comfortable. I have spoken personally to hospice and palliative medicine. He will be moved to floor today and made comfort care. They will be taking care of pain medications, anxiety medications, anticholinergics verbal support was provided to family members and they are very appreciative of the care that has been provided throughout his hospitalization. Patient himself is not able to answer my questions at this point. - Time Spent with Patient Total time spent providing and/or coordinating discharge services: - Discharge Medications Home Medications: Oxybutynin [Ditropan] 10 mg PO DAILY 10/19/17 [History] Nitroglycerin [Nitrostat] 0.4 mg SL Q5M PRN 10/20/17 [History] Oxycodone HCl/Acetaminophen [Percocet 10-325 mg Tablet] 1 tab PO TID PRN [History] Allergies/Adverse Reactions: 3 Allergy/AdvReac Type Severity Reaction Status Date / Time Beta-Blockers AdvReac See Verified 05/26/17 07:19 (Beta-Adrenergic Bloc Comments Date of admission: 10/20/17 08:45 Primary care physician: Arturo Crabtree MD Consults: 10/20/17 09:12 Consult to Urology [CONS] Routine Consulting Provider: Urology [facility] Reason for Consult: Hydropnephrosis, bladder mass with mets. Call Completed: Yes 10/20/17 09:13 Consult to Oncology [CONS] Routine Consulting Provider: Oncology [facility] Reason for Consult: Bladder mass with hydropnephrosis, liver mets, abdominal nodes mets Call Completed: Yes 10/20/17 09:40 Consult to Nutrition [CONS] Routine Comment: Consulting Provider: NUTRITION Reason for Dietary Consult: MST Score 10/20/17 10:00 Consult to Palliative Care [CONS] Routine Comment: Consulting Provider: Palliative Care [facility] Reason for Consult: metastatic Likely bladder cancer Call Completed: Yes 10/23/17 18:29 Consult to [employer] [CONS] Routine Reason for SW Consult: Family wants considation of inpatient hospice. - Constitutional Vitals: Temp Pulse Resp BP Pulse Ox 97.6 F 72 18 98/60 94 10/28/17 06:26 10/28/17 06:26 10/28/17 08:01 10/28/17 06:26 10/28/17 08:01 General appearance: Present: A&O X 3, pleasant, answers questions appropriately Exam: GENERAL: Patient has his eyes closed. Occasional moans, does not answer my questions NECK: No jugulovenous distention, No carotid bruits, Carotid pulse normal contour, Supple LUNGS: Lungs clear to auscultation, Good diaphragmatic excursion CARDIAC: Normal S1 and S2; no rubs, murmurs, or gallops ABDOMEN: Abdomen soft, non-tender, BS normal, No masses or organomegaly EXTREMITIES: Extremities normal, no deformities, edema, clubbing or skin discoloration. Good capillary refill., No ulcers NEURO: Complete neurological assessment cannot be performed due to patient condition PULSES: 2+ radial, 2+ carotid Rest of the exam is non contributory - Patient Status Disposition: Hospice - Medical Facility Condition: Serious - Discharge Instructions Follow Up With: Arturo Crabtree MD [Primary Care Provider] - - VTE Documentation of Mechanical Device: Intermittent pneumatic compression device
[2017-10-28] MEDS ORDERED: OXYCODONE Oral CONC 10 MG/0.5 ML ORAL.SYG SL PRN (15:49)
[2017-10-28] MEDS ORDERED: Acetaminophen 650 MG RECTAL SUPP RC PRN (15:51)
--- NOTE | 2017-11-08 10:28 | Rad Onc Final Treatment ---
Written by Neil Chandler LPN, acting as scribe for Henry Tom MD. Radiation Oncology Final - General Oncology History: 62-year-old male presents with a clinical stage IV bladder cancer with pelvic pain and urinary symptoms as well as intermittent bleeding in the urine Date of Service: 10/27/17 - Radiation Treatment Summary Treatment Dates: 10/26/2017-10/27/2017. Total elapsed days is 13. Treatment Site(s): Bladder and pelvis. Technique: 3D Conformal. Dose: 800/2,000 cGy was delivered in 2/5 fractions at 400 cGy to the bladder and pelvis region. This document as recorded by the scribe, Neil Chandler LPN, accurately reflects the service I personally performed and the decisions made by me. Henry Tom MD
== END 2017-10-28 17:01 | disposition hospice, inpatient (51) | DRG 668 ==
LOC: 3ANU → SUATTDRO 08:45 → 3ANU 10-21 17:16
PROVIDERS: ADMIT Internal Medicine; ATTEND Internal Medicine

== ENCOUNTER 2017-10-28 13:16 | Inpatient (IN) ==
[2017-10-28] MEDS ORDERED: Bisacodyl 10 MG RECTAL SUPPOSITORY RC PRN (13:37)
[2017-10-28] MEDS ORDERED: Scopolamine Patch 1.5 MG PATCH.TD72 TD PRN (13:37)
[2017-10-28] MEDS ORDERED: Acetaminophen 650 MG RECTAL SUPP RC PRN (13:37)
[2017-10-28] MEDS ORDERED: Ipratropium/Albuterol Neb 3 ML IH PRN (13:37)
[2017-10-28] MEDS ORDERED: Ondansetron ODT 4 MG TAB.RAPDIS SL PRN (13:37)
[2017-10-28] MEDS ORDERED: *HR* OxyCODONE Immed Rel 5 MG TABLET PO PRN (13:37)
[2017-10-28] MEDS ORDERED: *HR* Belladonna Alkaloids/Opium 60 MG RECTAL SUPPOSITORY RC PRN (13:45)
--- NOTE | 2017-10-28 16:17 | Palliative - Consult Note ---
Date of Encounter: 10/28/17 Time of Encounter: 15:45 - Assessment and Plan (1) Bladder pain Status: Acute Assessment and plan: Fentanyl patch at 50 mcg with BTP Oxycodone SL. (2) Anxiety Status: Acute Assessment and plan: PRN Ativan SL (3) Tobacco abuse Status: Chronic Assessment and plan: Nicotine patch 21 mg on. (4) Counseling regarding advanced care planning and goals of care Status: Acute Assessment and plan: Patient is DNRCC - Comfort Care. Terminal diagnosis is Bladder Cancer with mets. Family support provided. 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 Hartley is a 62 year old male with coronary artery disease, carotid stenosis status post carotid endarterectomy, tobacco abuse since childhood, hypertension and hyperlipidemia. The patient presented to [facility] as a referral from [facility]. The patient presents to [facility] as a referral from a do not [facility]. His problem dates back to 2 months ago when he developed dysuria, difficulty passing urine, and incontinence. He went to his primary care physician who treated him for urinary tract infection and referred him to urologist. He had an abdominal CAT scan done yesterday which was ordered by the urologist and is reviewed a bladder mass with severe R hydronephrosis and perinephric stranding of the right kidney, as well as multiple metastasis to the liver and abdominal and retroperitoneal lymph nodes. Patient developed Pneumonia with leukocytosis with deterioration in condition. Patient unable to complete palliative radiation and has been transitioned to inpatient [facility] care. Terminal diagnosis is bladder cancer with mets. This palliative care consult is for symptom management. CC: Oscar Chirinos MD Past Med Surg Social Fam HX - Past Medical History Source: old records reviewed, obtained from family, nursing notes reviewed Medical history: cancer, COPD, coronary artery disease, CVA, hyperlipidemia, hypertension, malignancy, other Psychiatric history: PTSD - Past Surgical History Surgical History: angioplasty/stent, other - Social History Smoking Status: Current every day smoker Smokeless Tobacco Status: No Alcohol use: none Drug use: none Occupational status: unemployed Current living situation: Home Activity Level: Uses cane/walker Recent Out of Country Travel Within the Last 8 Weeks: No Exposure or Possible Exposure to Illness During Travel: No Medications and Allergies Oxybutynin [Ditropan] 10 mg PO DAILY 10/19/17 [History] Nitroglycerin [Nitrostat] 0.4 mg SL Q5M PRN 10/20/17 [History] Oxycodone HCl/Acetaminophen [Percocet 10-325 mg Tablet] 1 tab PO TID PRN [History] 3 Allergy/AdvReac Type Severity Reaction Status Date / Time Beta-Blockers AdvReac See Verified 05/26/17 07:19 (Beta-Adrenergic Bloc Comments ROS unobtainable: due to mental status - Constitutional Constitutional ROS PAL: chills, fatigue, lethargy - EENT Eyes: requires corrective lenses - Respiratory Respiratory: cough - Gastrointestinal Gastrointestinal: abdominal pain - Genitourinary Genitourinary ROS male: other (Bladder cancer) - Musculoskeletal Musculoskeletal ROS IM: muscle weakness - Neurological Neurological ROS: weakness Palliative Care-Exam - Constitutional General appearance: Present: cooperative - Head Head Exam: Present: atraumatic - Eye Eye exam: Present: PERRL - ENT ENT exam: Present: mucous membranes moist - Neck Neck exam: Present: full ROM - Respiratory Respiratory exam: Present: decreased breath sounds, rhonchi - Expanded Respiratory Exam Location: decreased breath sounds: Left, Right, Lower, rhonchi: Left, Right, Upper - Cardiovascular Cardiovascular exam: Present: RRR, +S1, +S2 - Expanded Cardiovascular Exam Peripheral pulses: 1+: Femoral (L) PM, Femoral (R) PM, Posterior Tibialis (L), Posterior Tibialis (R), 2+: Carotid (L) PM, Carotid (R) PM, Radial (L), Radial ( R), Dorsalis Pedis (L) PM, Dorsalis Pedis (R) PM - GI/Abdominal Exam GI/Abdominal exam: Present: soft, tenderness (general tenderness) - Rectal Rectal Exam: Present: deferred - Catheter Type: Urethral (Garrison) (scant urine) - Expanded Upper Extremities Exam Upper Arm exam: Present: full ROM Forearm wrist exam: Present: full ROM Hand wrist exam: Present: full ROM - Expanded Lower Extremities Exam Lower Leg exam: Present: full ROM - Neurological Exam Neurological exam: Present: alert - Skin Skin exam: Present: pallor, warm Palliative Quality Palliative Quality: Screen for Code Status: No (Comfort Care), Screen for Goals of Care: Yes, Screen for Pain: Yes, If Pain Regimen Started, Initiate Bowel Regimen: Yes, Screen for Nausea/Vomitting: Yes Code Status: 10/28/17 13:37 Resuscitation Status: Active [RES] Routine Comment: Resuscitation Status: DNR-Comfort Care
[2017-10-28] MEDS: *HR* LORazepam Oral Conc 2 MG/ML SL SCH (17:52)
[2017-10-28] MEDS: Haloperidol Oral Conc 10 MG/5 ML UDC PO PRN (17:52)
[2017-10-28] MEDS: OXYCODONE Oral CONC 10 MG/0.5 ML ORAL.SYG SL PRN (20:46)
[2017-10-28] MEDS: Beclomethasone 40mcg MDI IH SCH (22:37)
[2017-10-29] MEDS: *HR* LORazepam Oral Conc 2 MG/ML SL SCH ×4 (00:46→16:47)
[2017-10-29] MEDS: Beclomethasone 40mcg MDI IH SCH (08:02)
[2017-10-29] MEDS ORDERED: Nicotine 21 MG PATCH.TD24 TD SCH (09:00)
[2017-10-29] MEDS ORDERED: Atropine Sulfate 1% 40 DROP/2 ML BOTTLE SL PRN (09:11)
--- NOTE | 2017-10-29 09:14 | Palliative Progress Note ---
Date of Encounter: 10/29/17 Time of Encounter: 09:10 - Assessment and plan (1) Cancer associated pain Current Visit: Yes Status: Acute Assessment and plan: Continue Fentanyl patch. He has only utilized 1 dose Oxycodone yesterday pm, but is moaning now. D/W primary RN who will be medicating patient. Monitor and titrate as needed (2) Restlessness and agitation Current Visit: Yes Status: Acute Assessment and plan: Continue scheduled Lorazepam. Has Haloperidol as well PRN - utilized x1 last 24 hours. (3) Congestion of upper airway Current Visit: Yes Status: Acute Assessment and plan: Continue scopolamine patch. Add PRN Atropine drops today. (4) Goals of care, counseling/discussion Current Visit: No Status: Acute Assessment and plan: Continue aggressive symptom management and titrating comfort meds as needed. 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 + upper airway secretions, warm and diaphoretic. Fever last evening. No family at bedside, staff stated they will be in later this am. - Constitutional General appearance: Present: mild distress - Respiratory Additional comments: Course rhonchi throughout all lung campuzano. O2 at 2 LPM - Cardiovascular Cardiovascular exam: Present: +S1, +S2 - GI/Abdominal GI/Abdominal exam: Present: diminished bowel sounds, soft - Additional comments: Garrison with timoteo colored urine - Extremities Exam Additional comments: Some generalized edema to upper and lower extremities - Neurological Exam Additional comments: Does open eyes with assessment, moaning this am. No attempt to answer questions. - Skin Skin exam: Present: diaphoretic, pallor, warm Palliative Quality Palliative Quality: Screen for Code Status: No (Comfort Care), Screen for Goals of Care: Yes, Screen for Pain: Yes, If Pain Regimen Started, Initiate Bowel Regimen: Yes, Screen for Nausea/Vomitting: Yes Code Status: 10/28/17 13:37 Resuscitation Status: Active [RES] Routine Comment: Resuscitation Status: DNR-Comfort Care Consult Discharge Plan - Plan Referrals: Arturo Crabtree MD [Primary Care Provider] -
[2017-10-29] MEDS: OXYCODONE Oral CONC 10 MG/0.5 ML ORAL.SYG SL PRN ×5 (10:07→18:31)
[2017-10-29] MEDS: Haloperidol Oral Conc 10 MG/5 ML UDC PO PRN (10:27)
[2017-10-29] MEDS ORDERED: Naloxone 0.4 MG/ML INJ ONE (18:41)
[2017-10-30] MEDS: *HR* LORazepam Oral Conc 2 MG/ML SL SCH ×3 (01:19→12:08)
[2017-10-30 04:40] VITALS: BP 100/63
[2017-10-30] MEDS: OXYCODONE Oral CONC 10 MG/0.5 ML ORAL.SYG SL PRN ×2 (06:53→13:13)
--- NOTE | 2017-10-30 10:01 | Palliative Progress Note ---
Date of Encounter: 10/30/17 Time of Encounter: 10:00 - Assessment and plan (1) Cancer associated pain Current Visit: Yes Status: Acute Assessment and plan: Continue current regimen with Fentanyl patch and Oxycodone for breakthrough pain. (2) Restlessness and agitation Current Visit: Yes Status: Acute Assessment and plan: Continue scheduled Lorazepam. (3) Congestion of upper airway Current Visit: Yes Status: Acute (4) Goals of care, counseling/discussion Current Visit: No Status: Acute Assessment and plan: Patient appears to be actively dying. Family states he had wonderful day yesterday, states "we had a prayer and praise meeting in here". They are aware he is likely to pass away within the next 24 hours or so. 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 Current Visit: No Status: Suspected (7) Hydronephrosis due to obstructive malignant bladder cancer Current Visit: No Status: Acute (8) Pneumonia Current Visit: No Status: Acute Qualifiers: Pneumonia type: due to unspecified organism Laterality: bilateral Lung location: unspecified part of lung Qualified Code(s): J18.9 - Pneumonia, unspecified organism - Time Spent With Patient Total time spent is greater than 50% in coordination of care (as documented) at patient's floor/unit and/or counseling patient: 25 - 35 minutes - Subjective Interval history: Patient with deterioration in clinical status overnight, family was called in around 4am. [place] respirations. Unresponsive. Multiple family members at bedside. He appears comfortable, family pleased with care. Dusky in color. - Constitutional General appearance: Present: no acute distress - Respiratory Respiratory exam: Present: decreased breath sounds, rhonchi Additional comments: Resp irregular with 10-15 second periods of apnea - Cardiovascular Cardiovascular exam: Present: +S1, +S2 - GI/Abdominal GI/Abdominal exam: Present: normal bowel sounds, soft - Additional comments: Urine dk timoteo - Extremities Exam Additional comments: Generalized 1-2+ edema upper and lower extremities - Neurological Exam Additional comments: Unresponsive to verbal/tactile stimuli - Skin Skin exam: Present: diaphoretic, pallor, warm Palliative Quality Palliative Quality: Screen for Code Status: No (Comfort Care), Screen for Goals of Care: Yes, Screen for Pain: Yes, If Pain Regimen Started, Initiate Bowel Regimen: Yes, Screen for Nausea/Vomitting: Yes Code Status: 10/28/17 13:37 Resuscitation Status: Active [RES] Routine Comment: Resuscitation Status: DNR-Comfort Care Consult Discharge Plan - Plan Referrals: Arturo Crabtree MD [Primary Care Provider] -
--- NOTE | 2017-10-30 13:51 | Death Note ---
Discharge Sum: Summary - Date and Time Date of admission: 10/28/17 16:59 Date of : 10/30/17 Time of : 13:38 - Summary Details: Patient with history of metastatic bladder cancer was admitted to general inpatient hospice after a deterioration during his hospital stay. Patient was undergoing palliative radiation, when he declined after his treatment on . He has increasing leukocytosis, altered mental status, and new pneumonia found on imaging. Family conference was held and decided to forego further radiation and antibiotic therapy, and allow a peaceful passing. He was transitioned to inpt hospice on Tuesday and this afternoon with family at bedside. - Additional Data Confirmation of as documented by pronouncing clinician: no pulse, no respirations, no heart sounds Family: at bedside Attending physician: Oscar Chirinos MD Was code activated?: No Autopsy requested?: No Hospice patient?: Yes Discharge Sum: Diag - PCOD Probable Cause of : Respiratory arrest Discharge Sum: Prov - Provider Primary care physician: Arturo Crabtree MD Admitting clinician: Oscar Chirinos Consults: 10/28/17 13:37 Consult to Palliative Care [CONS] Routine Comment: Consulting Provider: [facility] [place] Reason for Consult: Symptom management Time Notified: 13:00 Call Completed: No
[2017-10-31] MEDS ORDERED: *HR* FentaNYL PATCH 50 MCG PATCH TD SCH (11:00)
--- NOTE | 2017-11-07 15:47 | Pallative History & Physical ---
Date of Encounter: 11/07/17 Time of Encounter: 15:44 Assessment and Plan (1) Goals of care, counseling/discussion Status: Acute The patient was brought onto the general inpatient unit for aggressive mid of his bladder cancer. I had seen the patient in consultation prior to him coming onto the general inpatient service. Patient was seen and evaluated for transition to the general inpatient service by my nurse practitioners whose care I completely agree with. However I did not see him personally. History and physical can be seen under the palliative consult note done by nurse practitioner Dr. Jayda Arthur RN, Phd Internal Medicine - H&P: HPI Admitted From: Intrahospital Transfer Plans for Post Hospital Care: Hospice - Home History of present illness: Mr. Hartley is a 62 year old male Patient was not seen by me, patient passed before I was able to see him. See the palliative care consult note this will serve as the H&P. She was seen and managed by my nurse practitioners I have reviewed the chart and agree wholeheartedly with their management. Past Med Surg Social Fam HX - Past Medical History Medical history: cancer, COPD, coronary artery disease, CVA, hyperlipidemia, hypertension, malignancy, other Psychiatric history: PTSD - Past Surgical History Surgical History: angioplasty/stent, other - Social History Smoking Status: Current every day smoker Smokeless Tobacco Status: No Alcohol use: none Drug use: none Internal Medicine - H&P: Meds Oxybutynin [Ditropan] 10 mg PO DAILY 10/19/17 [History] Nitroglycerin [Nitrostat] 0.4 mg SL Q5M PRN 10/20/17 [History] Oxycodone HCl/Acetaminophen [Percocet 10-325 mg Tablet] 1 tab PO TID PRN [History] 3 Allergy/AdvReac Type Severity Reaction Status Date / Time Beta-Blockers AdvReac See Verified 05/26/17 07:19 (Beta-Adrenergic Bloc Comments Palliative Care-Exam - Constitutional Vitals: Temp Pulse Resp BP Pulse Ox 99.3 F 78 12 100/63 93 10/30/17 04:38 10/30/17 04:38 10/30/17 06:34 10/30/17 04:38 10/30/17 04:38 General appearance: Present: no acute distress Palliative Quality Palliative Quality: Screen for Code Status: No (Comfort Care), Screen for Goals of Care: Yes, Screen for Pain: Yes, If Pain Regimen Started, Initiate Bowel Regimen: Yes, Screen for Nausea/Vomitting: Yes Code Status: 10/28/17 13:37 Resuscitation Status: Active [RES] Routine Comment: Resuscitation Status: DNR-Comfort Care
== END 2017-10-30 13:38 | disposition expired | DRG 686 ==
LOC: 2ANU 16:59
PROVIDERS: ADMIT Family Medicine Hospice and Palliative Medicine; ATTEND Family Medicine Hospice and Palliative Medicine